=== PATIENT | female | born 1935 | race Caucasian/White ===

== ENCOUNTER 2022-04-08 12:22 | Outpatient (REF) | payer MEDICARE, SELFPAY ==
[2022-04-08 13:44] LABS: MANUAL DIFF FLAG NO
[2022-04-08 13:48] LABS: Basophils Absolute Auto 0.1 X10*3/uL (0.0-0.2); Basophils Percent Auto 1.2 % (0-2); Eosinophils Absolute Auto 0.6 X10*3/uL (0.0-0.4); Eosinophils Percent Auto 8.3 % (0-4); Hematocrit 39.9 % (37.0-47.0); Hemoglobin 12.8 g/dl (12.0-16.0); Imm Gran Abs Auto 0.02 X10*3/uL (0.00-0.03); Imm Gran Pct Auto 0.3 % (0.0-0.4); Lymphocytes Absolute Auto 0.9 X10*3/uL (1.2-4.9); Lymphocytes Percent Auto 11.7 % (20-40); Mean Corpuscular HGB Conc 32.1 g/dl (31.0-35.0); Mean Corpuscular Hemoglobin 30.5 pg (27.0-33.0); Mean Corpuscular Volume 95.2 fL (80.0-98.0); Mean Platelet Volume 10.6 fL (9.4-12.3); Monocytes Absolute Auto 1.1 X10*3/uL (0.1-1.2); Monocytes Percent Auto 14.2 % (2-11); Neutrophils Percent Auto 64.3 % (45-73); Platelet Count 295 X10*3/uL (160-400); Red Blood Count 4.19 X10*6/uL (4.20-5.50); Red Cell Distribution Width 12.7 % (11.0-16.0); White Blood Count 7.7 X10*3/uL (4.8-10.8)
[2022-04-08 14:11] LABS: Alanine Aminotransferase 9 U/L (0-31); Aspartate Amino Transferase 16 U/L (5-31); C Reactive Protein 3.09 mg/dL (< or = 0.50); Estimated Glomerular Filt Rate > 60
[2022-04-08 14:39] LABS: Erythrocyte Sedimentation Rate 75 MM/HR (0-20)
== END 2022-04-08 12:23 | disposition home or self-care (01) ==
LOC: HO.10HDL 12:22
PROVIDERS: Visit Provider Internal Medicine Rheumatology
DX: M47.817 Spondylosis without myelopathy or radiculopathy, lumbosacral region (principal); M05.10 Rheumatoid lung disease with rheumatoid arthritis of unspecified site; M05.9 Rheumatoid arthritis with rheumatoid factor, unspecified; Z79.899 Other long term (current) drug therapy
CPT/HCPCS: 36415; 82565; 84450; 84460; 85025; 85652; 86140; 99212

== ENCOUNTER → 2022-07-13 10:45 | Outpatient (BNVA) | payer MEDICARE, SELFPAY | PROVIDERS: Visit Provider Internal Medicine Rheumatology | DX: M05.9 Rheumatoid arthritis with rheumatoid factor, unspecified (principal); M05.10 Rheumatoid lung disease with rheumatoid arthritis of unspecified site; M17.11 Unilateral primary osteoarthritis, right knee; M47.817 Spondylosis without myelopathy or radiculopathy, lumbosacral region; Z79.899 Other long term (current) drug therapy | CPT/HCPCS: 36415; 82565; 84450; 84460; 85025; 85652; 86140; 99212 ==

== ENCOUNTER → 2022-08-03 10:38 | Outpatient (BNVA) | payer MEDICARE, SELFPAY | PROVIDERS: Visit Provider Internal Medicine Rheumatology | DX: M17.11 Unilateral primary osteoarthritis, right knee (principal) | CPT/HCPCS: 20610 ==

== ENCOUNTER 2022-08-11 14:51 | Outpatient (REF) | payer MEDICARE, SELFPAY ==
[2022-08-11 17:25] LABS: Alanine Aminotransferase 15 U/L (0-31); Albumin Level 4.2 g/dL (3.5-5.0); Alkaline Phosphatase 103 U/L (39-117); Anion Gap 17 (12-20); Aspartate Amino Transferase 19 U/L (5-31); Bilirubin Total 0.8 mg/dL (0.0-1.0); Blood Urea Nitrogen 26 mg/dL (9-16); Calcium 9.8 mg/dL (8.4-10.2); Carbon Dioxide 29 mmol/L (22-29); Chloride 105 mmol/L (96-108); Cholesterol 201 mg/dL; Estimated Glomerular Filt Rate 49; Glucose Random 101 mg/dL (60-115); HDL Cholesterol 51 mg/dL; LDL Cholesterol Calculated 117 mg/dl; Potassium 3.9 mmol/L (3.3-5.1); Sodium 147 mmol/L (135-145); Total Protein 6.6 g/dL (6.5-8.0); Triglycerides 167 mg/dL
[2022-08-11 17:40] LABS: TSH reflex Free T4 0.44 uIU/mL (0.32-4.0)
== END 2022-08-11 14:52 | disposition home or self-care (01) ==
LOC: HO.HMGCLDS 14:51
PROVIDERS: PCP Internal Medicine; Visit Provider Internal Medicine
DX: I10 Essential (primary) hypertension (principal); J44.9 Chronic obstructive pulmonary disease, unspecified; Z78.0 Asymptomatic menopausal state
CPT/HCPCS: 36415; 80053; 80061; 84443

== ENCOUNTER → 2022-08-17 11:09 | Outpatient (BNVA) | payer MEDICARE, SELFPAY | PROVIDERS: PCP Internal Medicine; Visit Provider Internal Medicine Rheumatology | DX: M17.11 Unilateral primary osteoarthritis, right knee (principal); M06.9 Rheumatoid arthritis, unspecified | CPT/HCPCS: 20610 ==

== ENCOUNTER → 2022-08-24 10:34 | Outpatient (BNVA) | payer MEDICARE, SELFPAY | PROVIDERS: PCP Internal Medicine; Visit Provider Internal Medicine Rheumatology | DX: M17.11 Unilateral primary osteoarthritis, right knee (principal) | CPT/HCPCS: 20610; 81001; 87086 ==

== ENCOUNTER 2022-09-02 11:48 | Outpatient (REF) | payer MEDICARE, SELFPAY ==
[2022-09-02 13:59] LABS: MANUAL DIFF FLAG NO
[2022-09-02 14:26] LABS: Basophils Absolute Auto 0.1 X10*3/uL (0.0-0.2); Basophils Percent Auto 1.2 % (0-2); Eosinophils Absolute Auto 0.4 X10*3/uL (0.0-0.4); Eosinophils Percent Auto 4.6 % (0-4); Hematocrit 42.3 % (37.0-47.0); Hemoglobin 13.3 g/dl (12.0-16.0); Imm Gran Abs Auto 0.04 X10*3/uL (0.00-0.03); Imm Gran Pct Auto 0.5 % (0.0-0.4); Lymphocytes Absolute Auto 1.4 X10*3/uL (1.2-4.9); Lymphocytes Percent Auto 17.7 % (20-40); Mean Corpuscular HGB Conc 31.4 g/dl (31.0-35.0); Mean Corpuscular Hemoglobin 30.6 pg (27.0-33.0); Mean Corpuscular Volume 97.5 fL (80.0-98.0); Mean Platelet Volume 11.3 fL (9.4-12.3); Monocytes Absolute Auto 0.9 X10*3/uL (0.1-1.2); Monocytes Percent Auto 11.4 % (2-11); Neutrophils Absolute Auto 5.2 x10*3/uL (2.0-8.3); Neutrophils Percent Auto 64.6 % (45-73); Platelet Count 266 X10*3/uL (160-400); Red Blood Count 4.34 X10*6/uL (4.20-5.50); White Blood Count 8.1 X10*3/uL (4.8-10.8)
[2022-09-02 15:06] LABS: Erythrocyte Sedimentation Rate 23 MM/HR (0-20)
[2022-09-02 15:09] LABS: Alanine Aminotransferase 11 U/L (0-31); Aspartate Amino Transferase 20 U/L (5-31); C Reactive Protein 0.16 mg/dL (< or = 0.50); Estimated Glomerular Filt Rate 57; Sodium 145 mmol/L (135-145)
[2022-09-02 15:13] LABS: Vitamin D 25-OH Total 76.8 ng/mL (>30)
== END 2022-09-02 11:49 | disposition home or self-care (01) ==
LOC: HO.HMGCLDS 11:48
PROVIDERS: PCP Internal Medicine; Visit Provider Internal Medicine Rheumatology
DX: E87.0 Hyperosmolality and hypernatremia (principal); E55.9 Vitamin D deficiency, unspecified; I10 Essential (primary) hypertension; J44.9 Chronic obstructive pulmonary disease, unspecified; N39.0 Urinary tract infection, site not specified; M05.9 Rheumatoid arthritis with rheumatoid factor, unspecified; Z78.0 Asymptomatic menopausal state; Z79.899 Other long term (current) drug therapy
CPT/HCPCS: 36415; 82306; 82565; 84295; 84450; 84460; 85025; 85652; 86140; 87086

== ENCOUNTER 2022-10-10 12:46 | Emergency (ER) | payer MEDICARE, SELFPAY ==
--- NOTE | ~2022-10-10 | CT_ITS ---
EXAMINATION: CT ABDOMEN AND PELVIS WITH CONTRAST CLINICAL INFORMATION: Lower abdominal pain, back pain and constipation. COMPARISON: None available. TECHNIQUE: Multidetector volumetric images were obtained from the superior aspect of the liver through the pubic symphysis following administration 85 mL of Omnipaque 350 intravenous contrast. Sagittal and coronal reformatted images were obtained on the technologist's workstation. Oral contrast: No This CT examination was performed using dose optimization techniques as appropriate, variously including the following: *Automated exposure control *Adjustment of mA and/or kV according to patient size (this includes techniques or standardized protocols for targeted exams where dose is matched to indication/reason for exam; i.e. extremities or head) *Use of iterative reconstruction technique DLP: 1038 mGy-cm FINDINGS: The exam is limited secondary to patient breathing artifact throughout the exam. LUNG BASES: The lung bases are clear. Heart size is normal. LIVER, GALLBLADDER, AND BILIARY TREE: The liver is enlarged in size, normal shape, and attenuation with mild left hepatic biliary ductal dilatation and left hepatic 1.6 cm cyst.. The gallbladder is not visualized PANCREAS: Limited SPLEEN: Unremarkable. ADRENAL GLANDS: Unremarkable. KIDNEYS AND URETERS: The kidneys are normal in size, shape, and attenuation. No hydronephrosis, hydroureter, or calculi seen. No perinephric stranding. BLADDER: Unremarkable. GASTROINTESTINAL TRACT: There is diffuse colonic diverticulosis, gas and stool without any evidence of diverticulitis. The small bowel loops are normal caliber. Appendix is not seen. The stomach is nondistended. ABDOMINAL WALL: There is a left inguinal hernia containing a loop of small bowel. No proximal bowel obstruction seen. LYMPH NODES: Normal. VASCULAR: There is mild atherosclerotic changes of abdominal aorta without aneurysmal dilatation. PELVIC VISCERA: No free air or free fluid seen. OSSEOUS STRUCTURES: There are degenerative disc changes with spondylosis throughout lumbar spine. No acute fracture or dislocation seen. CT/CT abdomen pelvis w IV con IMPRESSION: 1. Diffuse colonic diverticulosis without diverticulitis. 2. Left inguinal hernia containing a loop of small bowel. No proximal bowel obstruction seen. 3. Left hepatic cysts with mild left intrahepatic ductal dilatation. Fleischner guidelines were followed.
[2022-10-10 12:48] VITALS: BP 151/103; PULSE 100; RESP 18; TEMP 36.8; O2SAT 92; BMI 23.1
--- NOTE | 2022-10-10 12:50 | ED.ABDPAIN ---
HPI - Abdominal Pain General Chief Complaint: General Medical <JOANIE Hernandez - Last Filed: 10/10/22 12:52> Stated Complaint: constipation <JOANIE Hernandez - Last Filed: 10/10/22 12:52> Time Seen by Provider: 10/10/22 12:52 <JOANIE Hernandez - Last Filed: 10/10/22 12:52> Source: patient and family <Jacqueline Donohue NP - Last Filed: 10/10/22 16:38> Mode of arrival: wheelchair <Jacqueline Donohue NP - Last Filed: 10/10/22 16:38> Limitations: no limitations <Jacqueline Donohue NP - Last Filed: 10/10/22 16:38> History of Present Illness HPI narrative: 87 yo female with past medical history of COPD, HTN, OA here with complaints of about 1 week of constipation, rectal pain/pressure, despite miralax and laxative with lower back pain but no abdominal pain, vomiting or fever. <Jacqueline Donohue NP - Last Filed: 10/10/22 16:38> Related Data Home Medications: Home Medications Medication Instructions Recorded Confirmed calcium carbonate 600 mg-vitamin 1 tab PO DAILY 04/08/22 09/03/22 D3 10 mcg (400 unit) tablet (Calcium 600 + D(3)) celecoxib 200 mg capsule (Celebrex) 200 mg PO BID 04/08/22 09/03/22 multivitamin 1 tab PO DAILY 04/08/22 09/03/22 albuterol sulfate 90 mcg/actuation 2 puff inhalation Q6H PRN wheezing 07/13/22 09/03/22 aerosol inhaler cetirizine 10 mg tablet 10 mg PO DAILY 07/13/22 09/03/22 diltiazem HCl 30 mg tablet 30 mg PO BID 07/13/22 09/03/22 fluticasone fur. 100 mcg-umeclid 1 ea inhalation DAILY 07/13/22 09/03/22 62.5 mcg-vilant 25 mcg inhalat.powder (Trelegy Ellipta) triamterene 37.5 1 tab PO DAILY 07/13/22 09/03/22 mg-hydrochlorothiazide 25 mg tablet acetaminophen 325 mg capsule 325 mg PO QID PRN 08/03/22 09/03/22 (Tylenol) Previous Rx's Medication Instructions Recorded nitrofurantoin 100 mg PO Q12H 7 days #14 caps 09/03/22 monohydrate/macrocrystals 100 mg capsule (Macrobid) leflunomide 10 mg tablet (Arava) 10 mg PO DAILY #30 tabs 10/08/22 cefuroxime axetil 250 mg tablet 250 mg PO BID #14 tabs 10/10/22 docusate sodium 100 mg capsule 100 mg PO BID #60 caps 10/10/22 (Colace) lactulose 10 gram/15 mL oral 15 ml PO DAILY PRN laxative effect 10/10/22 solution #90 mL polyethylene glycol 3350 17 17 g PO BID #119 grams 10/10/22 gram/dose oral powder (Miralax) <JOANIE Hernandez Last Filed: 10/10/22 12:52> Allergies/Adverse Reactions: Allergies Allergy/AdvReac Type Severity Reaction Status Date / Time Seasonal Allergies Allergy Intermediate congestion Verified 09/03/22 10:11 acetaminophen [From Percocet] Allergy Unknown unknown Verified 09/03/22 10:11 oxycodone [From Percocet] Allergy Unknown unknown Verified 09/03/22 10:11 <JOANIE Hernandez - Last Filed: 10/10/22 12:52> Review of Systems Review of Systems Yes all other systems are reviewed and are negative <LALA Parrish Last Filed: 10/10/22 16:38> Constitutional: Reports no additional constitutional complaints, Denies body ache(s), Denies chills, Denies fever(s), Denies headache(s) and Denies weakness <Jacqueline Donohue NP - Last Filed: 10/10/22 16:38> Eyes: Reports no additional eye complaints and Denies change in vision <Jacqueline Donohue NP - Last Filed: 10/10/22 16:38> Reports system reviewed and no additional complaints, except as documented, Denies dizziness, Denies headache(s), Denies nasal congestion, Denies nasal discharge and Denies neck pain <Jacqueline Donohue NP - Last Filed: 10/10/22 16:38> Cardiovascular: Reports no additional cardiovascular complaints, Denies chest pain, Denies leg edema and Denies dyspnea <Jacqueline Donohue NP - Last Filed: 10/10/22 16:38> Respiratory: Reports no additional respiratory complaints, Denies cough and Denies dyspnea <Jacqueline Donohue NP - Last Filed: 10/10/22 16:38> Gastrointestinal: Reports no additional gastrointestinal complaints, Denies abdominal pain, Reports constipation, Denies diarrhea, Denies nausea and Denies vomiting <Jacqueline Donohue NP - Last Filed: 10/10/22 16:38> Genitourinary: Reports no additional female genitourinary complaints and Denies urinary incontinence <Jacqueline Donohue NP - Last Filed: 10/10/22 16:38> Musculoskeletal: Reports no additional musculoskeletal complaints, Reports back pain, Denies arthralgias, Denies joint swelling, Denies neck pain, Denies numbness and Denies tingling <Jacqueline Donohue NP - Last Filed: 10/10/22 16:38> Skin/Breast: Reports system reviewed and no additional complaints, except as docu and Denies rash <Jacqueline Donohue NP - Last Filed: 10/10/22 16:38> Reports system reviewed and no additional complaints, except as documented, Denies dizziness, Denies headache(s), Denies numbness, Denies tingling and Denies weakness <Jacqueline Donohue NP - Last Filed: 10/10/22 16:38> [facility] Past Medical History Attestation statement: The following information was validated with the patient. <Jacqueline Donohue NP - Last Filed: 10/10/22 16:38> Source: old records reviewed and nursing notes reviewed <Jacqueline Donohue NP - Last Filed: 10/10/22 16:38> Medical History: Medical History FHx: cholecystectomy <JOANIE Hernandez - Last Filed: 10/10/22 12:52> Family History Family History: Family History Mother Acute arthritis Father No problems noted. Mother Acute arthritis <JOANIE Hernandez - Last Filed: 10/10/22 12:52> Social History Social History: Social History Household Members Other:: [facility] Housing: Other Housing Other:: [facility] Alcohol intake: never Patient Tobacco Use Status: Former Tobacco user (over 30 years ) Smoked in Last 30 Days: No e-Cigarette/Vaping Use: Never Used Use of substances other than those prescribed or required for medical reasons: No Advance Directives: Yes Advance Directives Information Provided: Yes Advance Directives on File: No service: No Current occupational status: retired Current occupation: Former PT Cognitive needs: No Hearing needs: No Vision needs: Yes <JOANIE Hernandez - Last Filed: 10/10/22 12:52> Physical Exam ED Vital Signs: Vital Signs - 24 hr 10/10/22 12:48 10/10/22 14:58 Temperature 98.2 F Pulse Rate 100 94 Respiratory Rate 18 14 Blood Pressure 151/103 H 135/70 Pulse Oximetry 92 87 L Oxygen Delivery Method Room Air Room Air BMI result Body Mass Index 23.1 <JOANIE Hernandez - Last Filed: 10/10/22 12:52> Vital Signs - 24 hr 10/10/22 12:48 10/10/22 14:58 Temperature 98.2 F Pulse Rate 100 94 Respiratory Rate 18 14 Blood Pressure 151/103 H 135/70 Pulse Oximetry 92 87 L Oxygen Delivery Method Room Air Room Air BMI result Body Mass Index 23.1 <Jacqueline Donohue NP - Last Filed: 10/10/22 16:38> Const General: cooperative, healthy appearing, comfortable and no acute distress <Jacqueline Donohue NP - Last Filed: 10/10/22 16:38> Orientation/consciousness: patient oriented x3 <Jacqueline Donohue NP - Last Filed: 10/10/22 16:38> Limitations: no limitations <Jacqueline Donohue NP - Last Filed: 10/10/22 16:38> HENIN Head: Yes normal to inspection <Jacqueline Donohue [employer]MENT INST[employer] - Last Filed: 10/10/22 16:38> Ears: hearing grossly normal bilaterally <Jacqueline Donohue [employer]MENT INST[employer]ER - Last Filed: 10/10/22 16:38> Eyes General: appearance normal, both eyes and all related structures <Jacqueline Donohue [employer]MENT INST[employer]ER - Last Filed: 10/10/22 16:38> Pupils: Equal, round and reactive pupils present <Jacqueline Donohue [employer] E[employer]MENT INST[employer]ER - Last Filed: 10/10/22 16:38> Neck Neck: Yes normal visual inspection, Yes full ROM and Yes no lymphadenopathy <Jacqueline Donohue [employer]MENT INST[employer]ER - Last Filed: 10/10/22 16:38> Chest Chest palpation & inspection: normal inspection of the chest <Jacqueline Donohue [employer]IPMENT INST[employer]ER - Last Filed: 10/10/22 16:38> Resp Effort & Inspection: normal respiratory effort <Jacqueline Donohue [employer] E[employer]MENT INST[employer]ER - Last Filed: 10/10/22 16:38> Auscultation: clear to auscultation bilaterally <Jacqueline Donohue [employer] EQUIPMENT INST[employer]ER - Last Filed: 10/10/22 16:38> Cardio Rate: regular rate <Jacqueline Donohue [employer] E[employer]IPMENT INST[employer]ER - Last Filed: 10/10/22 16:38> Rhythm: regular rhythm <Jacqueline Donohue [employer] EQUIPMENT INSTALLER - Last Filed: 10/10/22 16:38> Peripheral pulses: Peripheral pulses 2+ throughout <Jacqueline Donohue [employer] EQUIPMENT INST[employer]ER - Last Filed: 10/10/22 16:38> GI Inspection: Yes normal to inspection <Jacqueline Donohue [employer] EQUIPMENT INSTALLER - Last Filed: 10/10/22 16:38> Palpation (GI): Soft to palpation and nontender <Jacqueline Donohue [employer] EQUIPMENT INSTALLER - Last Filed: 10/10/22 16:38> Auscultation: normal bowel sounds <Jacqueline Donohue [employer] E[employer]IPMENT INSTALLER - Last Filed: 10/10/22 16:38> Rectal Exam - Female: visual inspection normal, normal sphincter tone and No fecal impaction <Jacqueline Donohue [employer] E[employer]IPMENT INST[employer]ER - Last Filed: 10/10/22 16:38> General: Yes no CVA tenderness <Jacquelineheidi Donohue, [employer]IPMENT INSTALLER - Last Filed: 10/10/22 16:38> Back/Spine/Pelvis Back: no CVA tenderness <Jacqueline Jayde, [employer]IPMENT INST[employer]ER - Last Filed: 10/10/22 16:38> Thoracic/Lumbar Spine: thoracic and lumbar spine normal to inspection <Jacquelineheidi Donohue, [employer]IPMENT INSTALLER - Last Filed: 10/10/22 16:38> Skin General skin exam: no rashes or lesions noted <Jacqueline Jayde, [employer] E[employer]IPMENT INSTALLER - Last Filed: 10/10/22 16:38> Neuro General: patient oriented x3 and moves all extremities <Jacqueline Donohue, [employer]IPMENT INSTALLER - Last Filed: 10/10/22 16:38> Cranial nerves: Yes CN's II-XII intact bilaterally, Yes Equal, round and reactive pupils present, Yes Bilaterally intact EOM present, Yes Nystagmus not present, Yes Normal facial strength present and Yes Midline tongue present <Jacquelineheidi Donohue, [employer]IPMENT INSTALLER - Last Filed: 10/10/22 16:38> Cognition (Neuro): normal cognition <Jacquelineheidi Donohue, [employer]IPMENT INSTALLER - Last Filed: 10/10/22 16:38> Motor exam (neuro): 5/5 motor strength present throughout <Jacquelineheidi Donohue, [employer]IPMENT INSTALLER - Last Filed: 10/10/22 16:38> Sensory Exam: Normal double simultaneous stimulation for sensation <Jacqueline Donohue, [employer]IPMENT INSTALLER - Last Filed: 10/10/22 16:38> Extrem General: Yes normal to inspection, Yes no pedal edema and Yes no calf tenderness <Jacqueline Donohue, [employer]IPMENT INSTALLER - Last Filed: 10/10/22 16:38> Course Course Course Narrative: This is an RME: Additional HPI, ROS, PE not included below will be deferred to primary provider. 87 year old female hx of COPD, HTN. seropositive RA presenting to ED w/ a traumatic lower back pain, constipation no BM for about 4-5 days, and diffuse abdominal pain. Here with daughter who states patient has had her galbladder removed. PE diffuse discomfort to abd Plan- labs, ua, ct <JOANIE Hernandez - Last Filed: 10/10/22 12:52> Reevaluation(s) Reevaluation #1: 1630-CT of the abdomen and pelvis shows no obstruction. Labs are unremarkable. UA shows a mild urinary tract infection. Patient has no fever or leukocytosis. She will be discharged home with a course of antibiotics. She does have some moderate constipation seen throughout the GI system on CT. I will start her on a bowel regimen give her lactulose p.r.n.. Nursing did inform me that patient had oxygen saturation of 87%. Patient does have history of COPD and uses oxygen at home intermittently. She has no shortness of breath. She is well-appearing. Her lungs are clear. I will discharge her home in care of her daughter. Reviewed worrisome signs and symptoms when to return to the emergency room. Comfortable plan for discharge home. <Jacqueline Donohue NP - Last Filed: 10/10/22 16:38> Medical Decision Making Medical Decision Making [facility] Narrative: 87 yo female here with one week of constipation with rectal pain/pressure, lower back pain. On exam abdomen, soft and nontender. +BS throughout. Elvia rectal exam with no fecal impaction. From triage labs, UA, CT were ordered <Jacqueline Donohue NP - Last Filed: 10/10/22 16:38> Differential Diagnosis Differential Diagnoses: The differential diagnosis associated with the presentation includes <Jacqueline Donohue NP - Last Filed: 10/10/22 16:38> Less likely SBO Consider constipation, fecal impaction, ischemic bowel, diverticulitis, malignancy <Jacqueline Donohue NP - Last Filed: 10/10/22 16:38> Lab Data [facility] Lab Attestation statement: I reviewed the patient's lab results. <Jacqueline Donohue NP - Last Filed: 10/10/22 16:38> Result Diagrams: 10/10/22 13:39 10/10/22 13:40 <JOANIE Hernandez - Last Filed: 10/10/22 12:52> Labs: Lab Results 10/10/22 10/10/22 10/10/22 Range/Units 13:39 13:40 15:48 WBC 7.7 (4.8-10.8) X10*3/uL RBC 4.17 L (4.20-5.50) X10*6/uL Hgb 13.3 (12.0-16.0) g/dl Hct 39.7 (37.0-47.0) % MCV 95.2 (80.0-98.0) fL MCH 31.9 (27.0-33.0) pg MCHC 33.5 (31.0-35.0) g/dl RDW 12.7 (11.0-16.0) % Plt Count 241 (160-400) X10*3/uL MPV 10.8 (9.4-12.3) fL Immature Gran % (Auto) 0.3 (0.0-0.4) % Neut % (Auto) 60.8 (45-73) % Lymph % (Auto) 19.7 L (20-40) % [place] % (Auto) 13.4 H (2-11) % Eos % (Auto) 4.9 H (0-4) % Baso % (Auto) 0.9 (0-2) % Lymph # (Auto) 1.5 (1.2-4.9) X10*3/uL [place] # (Auto) 1.0 (0.1-1.2) X10*3/uL Eos # (Auto) 0.4 (0.0-0.4) X10*3/uL Baso # (Auto) 0.1 (0.0-0.2) X10*3/uL Abs Immat Gran (auto) 0.02 (0.00-0.03) X10*3/uL Absolute Neuts (auto) 4.7 (2.0-8.3) x10*3/uL Absolute Nucleated RBC 0.000 (0.0-0.012) X10*3/uL Nucleated RBC % (auto) 0.0 (0.0-0.2) /100WBC Sodium 143 (135-145) mmol/L Potassium 4.0 (3.3-5.1) mmol/L Chloride 103 (96-108) mmol/L Carbon Dioxide 34 H (22-29) mmol/L Anion Gap 10 L (12-20) BUN 18 H (9-16) mg/dL Creatinine 0.92 (0.5-1.4) mg/dL Estim Creat Clear Calc 37.1 Estimated GFR 58 Random Glucose 126 H (60-115) mg/dL Calcium 9.4 (8.4-10.2) mg/dL Magnesium 2.0 (1.6-2.6) mg/dL Total Bilirubin 0.6 (0.0-1.0) mg/dL AST 20 (5-31) U/L ALT 10 (0-31) U/L Alkaline Phosphatase 82 (39-117) U/L Total Protein 6.0 L (6.5-8.0) g/dL Albumin 3.8 (3.5-5.0) g/dL Lipase 16 (8-78) U/L Urine Color Yellow Urine Appearance Clear Urine pH 8.0 (5.0-9.0) Ur Specific [place] >= 1.030 H (1.005-1.025) Urine Protein Negative (Neg-Trace) mg/dL Urine Glucose (UA) Negative (Negative) mg/dL Urine Ketones Negative (Negative) mg/dL Urine Blood Negative (Negative) Urine Nitrite Negative (Negative) Ur Leukocyte Esterase Moderate (2+) H (Negative) Urine RBC 0-2 (0-2) /HPF Urine WBC 6-10 H (0-5) /HPF Ur Squamous Epith Cells 3-5 (0-2) /HPF Urine Bacteria None Seen (None Seen) Hyaline Casts 0-2 (0-2) /LPF <JOANIE Hernandez - Last Filed: 10/10/22 12:52> Lab Results 10/10/22 10/10/22 10/10/22 Range/Units 13:39 13:40 15:48 WBC 7.7 (4.8-10.8) X10*3/uL RBC 4.17 L (4.20-5.50) X10*6/uL Hgb 13.3 (12.0-16.0) g/dl Hct 39.7 (37.0-47.0) % MCV 95.2 (80.0-98.0) fL MCH 31.9 (27.0-33.0) pg MCHC 33.5 (31.0-35.0) g/dl RDW 12.7 (11.0-16.0) % Plt Count 241 (160-400) X10*3/uL MPV 10.8 (9.4-12.3) fL Immature Gran % (Auto) 0.3 (0.0-0.4) % Neut % (Auto) 60.8 (45-73) % Lymph % (Auto) 19.7 L (20-40) % [place] % (Auto) 13.4 H (2-11) % Eos % (Auto) 4.9 H (0-4) % Baso % (Auto) 0.9 (0-2) % Lymph # (Auto) 1.5 (1.2-4.9) X10*3/uL [place] # (Auto) 1.0 (0.1-1.2) X10*3/uL Eos # (Auto) 0.4 (0.0-0.4) X10*3/uL Baso # (Auto) 0.1 (0.0-0.2) X10*3/uL Abs Immat Gran (auto) 0.02 (0.00-0.03) X10*3/uL Absolute Neuts (auto) 4.7 (2.0-8.3) x10*3/uL Absolute Nucleated RBC 0.000 (0.0-0.012) X10*3/uL Nucleated RBC % (auto) 0.0 (0.0-0.2) /100WBC Sodium 143 (135-145) mmol/L Potassium 4.0 (3.3-5.1) mmol/L Chloride 103 (96-108) mmol/L Carbon Dioxide 34 H (22-29) mmol/L Anion Gap 10 L (12-20) BUN 18 H (9-16) mg/dL Creatinine 0.92 (0.5-1.4) mg/dL Estim Creat Clear Calc 37.1 Estimated GFR 58 Random Glucose 126 H (60-115) mg/dL Calcium 9.4 (8.4-10.2) mg/dL Magnesium 2.0 (1.6-2.6) mg/dL Total Bilirubin 0.6 (0.0-1.0) mg/dL AST 20 (5-31) U/L ALT 10 (0-31) U/L Alkaline Phosphatase 82 (39-117) U/L Total Protein 6.0 L (6.5-8.0) g/dL Albumin 3.8 (3.5-5.0) g/dL Lipase 16 (8-78) U/L Urine Color Yellow Urine Appearance Clear Urine pH 8.0 (5.0-9.0) Ur Specific [place] >= 1.030 H (1.005-1.025) Urine Protein Negative (Neg-Trace) mg/dL Urine Glucose (UA) Negative (Negative) mg/dL Urine Ketones Negative (Negative) mg/dL Urine Blood Negative (Negative) Urine Nitrite Negative (Negative) Ur Leukocyte Esterase Moderate (2+) H (Negative) Urine RBC 0-2 (0-2) /HPF Urine WBC 6-10 H (0-5) /HPF Ur Squamous Epith Cells 3-5 (0-2) /HPF Urine Bacteria None Seen (None Seen) Hyaline Casts 0-2 (0-2) /LPF <Jacqueline Donohue NP - Last Filed: 10/10/22 16:38> Independent Interpretation I performed an independent interpretation of an: CT Scan <Jacqueline Donohue NP - Last Filed: 10/10/22 16:38> Interpretation: I independetely reviewed the CT scan and agree with radiologist's report-in addition there is stool seen-moderate amount <Jacqueline Donohue NP - Last Filed: 10/10/22 16:38> Radiology Impression Discussion of test interpretation with radiology: I have reviewed the radiologist's reading. <Jacqueline Donohue NP - Last Filed: 10/10/22 16:38> Radiologist Impression: FINDINGS: The exam is limited secondary to patient breathing artifact throughout the exam. LUNG BASES: The lung bases are clear. Heart size is normal.? LIVER, GALLBLADDER, AND BILIARY TREE: The liver is enlarged in size, normal shape, and attenuation with mild left hepatic biliary ductal dilatation and left hepatic 1.6 cm cyst.. The gallbladder is not visualized? PANCREAS: Limited? SPLEEN: Unremarkable.? ADRENAL GLANDS: Unremarkable.? KIDNEYS AND URETERS: The kidneys are normal in size, shape, and attenuation. No hydronephrosis, hydroureter, or calculi seen. No perinephric stranding. ? BLADDER: Unremarkable.? GASTROINTESTINAL TRACT: There is diffuse colonic diverticulosis, gas and stool without any evidence of diverticulitis. The small bowel loops are normal caliber. Appendix is not seen. The stomach is nondistended. ABDOMINAL WALL: There is a left inguinal hernia containing a loop of small bowel. No proximal bowel obstruction seen. LYMPH NODES: Normal. VASCULAR: There is mild atherosclerotic changes of abdominal aorta without aneurysmal dilatation. PELVIC VISCERA: No free air or free fluid seen.? OSSEOUS STRUCTURES: There are degenerative disc changes with spondylosis throughout lumbar spine. No acute fracture or dislocation seen.? CT/CT abdomen pelvis w IV con IMPRESSION: 1.? Diffuse colonic diverticulosis without diverticulitis. 2.? Left inguinal hernia containing a loop of small bowel. No proximal bowel obstruction seen. 3.? Left hepatic cysts with mild left intrahepatic ductal dilatation. <Jacqueline Donohue NP - Last Filed: 10/10/22 16:38> Independent Historian +daughter <Jacqueline Donohue NP - Last Filed: 10/10/22 16:38> Medications Administered Discontinued Medications Generic Name Dose Route Start Last Admin Trade Name Freq PRN Reason Stop Dose Admin Acetaminophen 975 mg 10/10/22 16:18 10/10/22 16:23 Acetaminophen 325 Mg Tablet PO 10/10/22 16:19 975 mg ONCE ONE Administration Docusate Sodium 100 mg 10/10/22 12:50 10/10/22 13:19 Docusate Sodium 100 Mg Capsule PO 10/10/22 12:51 100 mg ONCE ONE Administration Iohexol 85 ml 10/10/22 14:31 10/10/22 14:31 Iohexol 350 Mg/Ml 100 Ml Infus..Btl IV 10/10/22 14:32 85 ml ONCE ONE Administration Senna 15 ml 10/10/22 12:50 10/10/22 13:19 Senna [place] Extract Oral Syrup 15 Ml Syrup PO 10/10/22 12:51 15 ml ONCE ONE Administration <JOANIE Hernandez - Last Filed: 10/10/22 12:52> Medications Administered Discontinued Medications Generic Name Dose Route Start Last Admin Trade Name Freq PRN Reason Stop Dose Admin Acetaminophen 975 mg 10/10/22 16:18 10/10/22 16:23 Acetaminophen 325 Mg Tablet PO 10/10/22 16:19 975 mg ONCE ONE Administration Docusate Sodium 100 mg 10/10/22 12:50 10/10/22 13:19 Docusate Sodium 100 Mg Capsule PO 10/10/22 12:51 100 mg ONCE ONE Administration Iohexol 85 ml 10/10/22 14:31 10/10/22 14:31 Iohexol 350 Mg/Ml 100 Ml Infus..Btl IV 10/10/22 14:32 85 ml ONCE ONE Administration Senna 15 ml 10/10/22 12:50 10/10/22 13:19 Senna [place] Extract Oral Syrup 15 Ml Syrup PO 10/10/22 12:51 15 ml ONCE ONE Administration <Jacqueline Donohue NP - Last Filed: 10/10/22 16:38> Discharge Plan Discharge Clinical Impression: UTI (urinary tract infection), Constipation <JOANIE Hernandez - Last Filed: 10/10/22 12:52> Patient Disposition: Home, Self-Care <JOANIE Hernandez - Last Filed: 10/10/22 12:52> Instructions: Constipation (DC), Urinary Tract Infection in Older Adults (ED) <JOANIE Hernandez - Last Filed: 10/10/22 12:52> Additional Instructions: Take the MiraLax twice daily Take the Colace twice daily Only take the lactulose if you need to move her bowels Take all the antibiotics as prescribed Increase fluids, rest Follow-up with primary care doctor <JOANIE Hernandez - Last Filed: 10/10/22 12:52> Prescriptions: New polyethylene glycol 3350 [Miralax] 17 gram/dose powder 17 g PO BID Qty: 119 0RF docusate sodium [Colace] 100 mg capsule 100 mg PO BID Qty: 60 0RF cefuroxime axetil 250 mg tablet 250 mg PO BID Qty: 14 0RF lactulose 10 gram/15 mL solution 15 ml PO DAILY PRN (Reason: laxative effect) Qty: 90 0RF No Action leflunomide [Arava] 10 mg tablet 10 mg PO DAILY Qty: 30 3RF nitrofurantoin monohyd/m-cryst [Macrobid] 100 mg capsule 100 mg PO Q12H 7 Days Qty: 14 0RF Rx Instructions: must administer with a meal/food celecoxib [Celebrex] 200 mg capsule 200 mg PO BID multivitamin Tablet 1 tab PO DAILY calcium carbonate-vitamin D3 [Calcium 600 + D(3)] 600 mg-10 mcg (400 unit) tablet 1 tab PO DAILY triamterene-hydrochlorothiazid 37.5-25 mg tablet 1 tab PO DAILY Trelegy Ellipta 100-62.5-25 mcg blister with device 1 ea inhalation DAILY albuterol sulfate 90 mcg/actuation HFA aerosol inhaler 2 puff inhalation Q6H PRN (Reason: wheezing) diltiazem HCl 30 mg tablet 30 mg PO BID cetirizine 10 mg tablet 10 mg PO DAILY acetaminophen [Tylenol] 325 mg capsule 325 mg PO QID PRN <JOANIE Hernandez - Last Filed: 10/10/22 12:52> Referrals: Lubna Carmichael MD [Primary Care Provider] - 10 days <JOANIE Hernandez - Last Filed: 10/10/22 12:52>
[2022-10-10] MEDS: Docusate Sodium 100 MG CAPSULE PO (13:19)
[2022-10-10 13:45] LABS: MANUAL DIFF FLAG NO
[2022-10-10 13:46] LABS: Basophils Absolute Auto 0.1 X10*3/uL (0.0-0.2); Basophils Percent Auto 0.9 % (0-2); Eosinophils Absolute Auto 0.4 X10*3/uL (0.0-0.4); Eosinophils Percent Auto 4.9 % (0-4); Hematocrit 39.7 % (37.0-47.0); Hemoglobin 13.3 g/dl (12.0-16.0); Imm Gran Abs Auto 0.02 X10*3/uL (0.00-0.03); Imm Gran Pct Auto 0.3 % (0.0-0.4); Lymphocytes Absolute Auto 1.5 X10*3/uL (1.2-4.9); Lymphocytes Percent Auto 19.7 % (20-40); Mean Corpuscular HGB Conc 33.5 g/dl (31.0-35.0); Mean Corpuscular Hemoglobin 31.9 pg (27.0-33.0); Mean Corpuscular Volume 95.2 fL (80.0-98.0); Mean Platelet Volume 10.8 fL (9.4-12.3); Monocytes Percent Auto 13.4 % (2-11); Neutrophils Absolute Auto 4.7 x10*3/uL (2.0-8.3); Neutrophils Percent Auto 60.8 % (45-73); Platelet Count 241 X10*3/uL (160-400); Red Blood Count 4.17 X10*6/uL (4.20-5.50); Red Cell Distribution Width 12.7 % (11.0-16.0); White Blood Count 7.7 X10*3/uL (4.8-10.8)
[2022-10-10 14:01] LABS: Alanine Aminotransferase 10 U/L (0-31); Albumin Level 3.8 g/dL (3.5-5.0); Alkaline Phosphatase 82 U/L (39-117); Anion Gap 10 (12-20); Aspartate Amino Transferase 20 U/L (5-31); Bilirubin Total 0.6 mg/dL (0.0-1.0); Blood Urea Nitrogen 18 mg/dL (9-16); Calcium 9.4 mg/dL (8.4-10.2); Carbon Dioxide 34 mmol/L (22-29); Chloride 103 mmol/L (96-108); Creatinine Clr Calc Pharmacy 37.1; Estimated Glomerular Filt Rate 58; Glucose Random 126 mg/dL (60-115); Lipase 16 U/L (8-78); Sodium 143 mmol/L (135-145)
[2022-10-10] MEDS: iohexoL 350 MG/ML 100 ML INFUS..BTL 85 ML IV (14:31)
[2022-10-10 14:58] VITALS: BP 135/70; PULSE 94; RESP 14; O2SAT 87
[2022-10-10 15:55] LABS: Appearance Urine Clear; Color Urine Yellow; Glucose Urine UA Negative (Negative); Leukocyte Esterase Urine Moderate (2+) (Negative); Nitrite Urine Negative (Negative); Specific Gravity - Urine >= 1.030 (1.005-1.025); UMIC TRIGGER UACC YES; Urine Blood Negative (Negative); Urine Ketones Negative (Negative); Urine Protein Negative (Neg-Trace)
[2022-10-10 15:59] LABS: Bacteria Urine None Seen (None Seen); Hyaline Casts Urine 0-2 /LPF (0-2); RBC Urine 0-2 /HPF (0-2); UACC Culture Trigger YES
[2022-10-10] MEDS: Acetaminophen 325 MG TABLET 975 MG PO (16:23)
== END 2022-10-10 16:57 | disposition home or self-care (01) ==
PROVIDERS: Physician Assistant; Emergency Provider Emergency Medicine; PCP Internal Medicine
DX: N39.0 Urinary tract infection, site not specified (principal); K59.00 Constipation, unspecified; I10 Essential (primary) hypertension; Z79.899 Other long term (current) drug therapy
CPT/HCPCS: 36415; 74177; 80053; 81001; 83690; 83735; 85025; 87086; 99284; Q9967

== ENCOUNTER 2022-10-13 10:16 | Emergency (ER) | payer MEDICARE, SELFPAY ==
--- NOTE | ~2022-10-13 | CT_ITS ---
EXAMINATION: CT ABDOMEN AND PELVIS WITHOUT CONTRAST CLINICAL INFORMATION: Right-sided low back pain with UTI constipation COMPARISON: CT abdomen pelvis 3 days ago on 10/10/2022 TECHNIQUE: Multidetector volumetric imaging was performed from the superior aspect of the liver through the pubic symphysis. Sagittal and coronal reformatted images were obtained on the technologist's workstation. This CT examination was performed using dose optimization techniques as appropriate, variously including the following: *Automated exposure control *Adjustment of mA and/or kV according to patient size (this includes techniques or standardized protocols for targeted exams where dose is matched to indication/reason for exam; i.e. extremities or head) *Use of iterative reconstruction technique DLP: 291 mGy-cm FINDINGS: LUNG BASES: Emphysematous changes are present at the lung bases with peripheral scarring LIVER, GALLBLADDER, AND BILIARY TREE: The liver is normal in size, shape, and attenuation. No focal hepatic lesion or biliary ductal dilatation is present. The gallbladder is unremarkable with no evidence of radiopaque gallstones, gallbladder wall thickening, or obvious pericholecystic inflammatory changes. PANCREAS: Unremarkable. SPLEEN: Unremarkable. ADRENAL GLANDS: A right adrenal fat density benign adenoma is present measuring 2.2 x 1.3 x 3.0 cm. The left adrenal gland is unremarkable. KIDNEYS AND URETERS: The kidneys are normal in size, shape, and attenuation. Bilateral parapelvic Bosniak class I renal cysts are present which need no additional imaging or follow-up. No hydronephrosis, hydroureter, or calculi seen. No perinephric stranding. BLADDER: Unremarkable. GASTROINTESTINAL TRACT: Extensive colonic diverticular changes are present without diverticulitis. The small and large bowel are otherwise unremarkable. The appendix is not seen but there is no evidence of appendicitis. ABDOMINAL WALL: Again seen is an indirect left inguinal hernia containing unobstructed small bowel. LYMPH NODES: Normal. VASCULAR: The aorta is tortuous at the diaphragmatic hiatus and in its infrarenal portion. No aneurysms. PELVIC VISCERA: Unremarkable. OSSEOUS STRUCTURES: Severe degenerative changes are present throughout the spine with scoliosis convex to left. No bony destructive changes are seen. Degenerative changes are present in both hips, right significantly greater than the left. CT/CT abdomen pelvis wo IV con IMPRESSION: 1. A cause for the patient's right-sided low back pain has not been found. 2. Incidental note made of emphysema, benign right adrenal adenoma, colonic diverticulosis without diverticulitis and severe degenerative changes in the spine and hips. Fleischner guidelines were followed.
--- NOTE | ~2022-10-13 | XR_ITS ---
EXAMINATION: XR CHEST CLINICAL INFORMATION: Wheezing. COMPARISON: None available. TECHNIQUE: Frontal view of the chest was obtained. FINDINGS: Mild coarsened interstitial markings are seen bilaterally. Mild asymmetric linear markings are seen in the right upper lobe laterally. There is generalized hyperinflation. The heart and mediastinal structures are unremarkable. XR/XR chest 1V IMPRESSION: Coarse interstitial markings are nonspecific, but suggest chronic interstitial changes/COPD. Correlate with patient history. No acute cardiopulmonary process.
[2022-10-13 10:20] VITALS: BP 160/93; PULSE 101; RESP 18; TEMP 37; O2SAT 93; BMI 20.5
[2022-10-13 10:37] VITALS: BP 171/91; PULSE 103; RESP 17; TEMP 36.6; O2SAT 93
--- NOTE | 2022-10-13 11:08 | ED_ITS ---
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 Also reports continued constipation and rectal discomfort. Denies known injury, trauma, fall, dysuria/hematuria, urinary incontinence/retention, abdominal pain, CP/SOB Onset (ago): day(s) Related Data Home Medications Medication Instructions Recorded Confirmed calcium carbonate 600 mg-vitamin 1 tab PO DAILY 04/08/22 09/03/22 D3 10 mcg (400 unit) tablet (Calcium 600 + D(3)) celecoxib 200 mg capsule (Celebrex) 200 mg PO BID 04/08/22 09/03/22 multivitamin 1 tab PO DAILY 04/08/22 09/03/22 albuterol sulfate 90 mcg/actuation 2 puff inhalation Q6H PRN wheezing 07/13/22 09/03/22 aerosol inhaler cetirizine 10 mg tablet 10 mg PO DAILY 07/13/22 09/03/22 diltiazem HCl 30 mg tablet 30 mg PO BID 07/13/22 09/03/22 fluticasone fur. 100 mcg-umeclid 1 ea inhalation DAILY 07/13/22 09/03/22 62.5 mcg-vilant 25 mcg inhalat.powder (Trelegy Ellipta) triamterene 37.5 1 tab PO DAILY 07/13/22 09/03/22 mg-hydrochlorothiazide 25 mg tablet acetaminophen 325 mg capsule 325 mg PO QID PRN 08/03/22 09/03/22 (Tylenol) Previous Rx's Medication Instructions Recorded nitrofurantoin 100 mg PO Q12H 7 days #14 caps 09/03/22 monohydrate/macrocrystals 100 mg capsule (Macrobid) leflunomide 10 mg tablet (Arava) 10 mg PO DAILY #30 tabs 10/08/22 cefuroxime axetil 250 mg tablet 250 mg PO BID #14 tabs 10/10/22 docusate sodium 100 mg capsule 100 mg PO BID #60 caps 10/10/22 (Colace) lactulose 10 gram/15 mL oral 15 ml PO DAILY PRN laxative effect 10/10/22 solution #90 mL polyethylene glycol 3350 17 17 g PO BID #119 grams 10/10/22 gram/dose oral powder (Miralax) acetaminophen 500 mg tablet 500 mg PO Q6H PRN fever or pain 10/13/22 (Tylenol Extra Strength) #14 tabs lidocaine 5 % topical patch 1 patch topical DAILY PRN pain #30 10/13/22 (Lidoderm) ea Allergies Allergy/AdvReac Type Severity Reaction Status Date / Time Seasonal Allergies Allergy Intermediate congestion Verified 09/03/22 10:11 acetaminophen [From Percocet] Allergy Unknown unknown Verified 09/03/22 10:11 oxycodone [From Percocet] Allergy Unknown unknown Verified 09/03/22 10:11 Review of Systems Review of Systems: Constitutional: No Fever, No Chills, No Fatigue, No Malaise ENT/Mouth: No Hearing loss, No Ear Pain, No sore throat, No Rhinorrhea, No Swallowing Difficulty Eyes: No Eye Pain, No Swelling, No Redness, No Vision Changes Cardiovascular: No Chest Pain, No SOB, No Palpitations Respiratory: No Cough, No Sputum, No Dyspnea Gastrointestinal: No Nausea, No Vomiting, No Diarrhea, + Constipation, No Abdominal pain Genitourinary: No Dysuria, No Urinary Frequency, No Hematuria, No Urinary Incontinence/retention, No Urgency, No Flank Pain Musculoskeletal: +joint pain, No Myalgias, No Joint Swelling Skin: No Skin Lesions, No rash Neuro: No Weakness, No Numbness, No Paresthesias, No Dizziness, No Headache Yes all other systems are reviewed and are negative Constitutional: Constitutional: Reports as per [facility] Past Medical History Attestation statement: The following information was validated with the patient. Medical History FHx: cholecystectomy Family History Family History Mother Acute arthritis Father No problems noted. Mother Acute arthritis Social History Social History Household Members Other:: Resident [facility] Housing: Other Housing Other:: [facility] Alcohol intake: never Patient Tobacco Use Status: Former Tobacco user (over 30 years ) Smoked in Last 30 Days: No e-Cigarette/Vaping Use: Never Used Use of substances other than those prescribed or required for medical reasons: No Advance Directives: No service: No Current occupational status: retired Current occupation: Former PT Cognitive needs: No Hearing needs: No Vision needs: Yes Physical Exam ED Vital Signs: Vital Signs - 24 hr 10/13/22 10:20 10/13/22 10:37 10/13/22 11:35 Temperature 98.6 F 97.8 F Pulse Rate 101 H 103 H 86 Respiratory Rate 18 17 15 Blood Pressure 160/93 H 171/91 H Pulse Oximetry 93 93 Oxygen Delivery Method Room Air Room Air BMI result Body Mass Index 20.5 Const General: cooperative, healthy appearing and no acute distress Orientation/consciousness: patient oriented x3 Limitations: no limitations HENMT Head: Yes normal to inspection and Yes atraumatic Ears: hearing grossly normal bilaterally General nose exam: Normal external nose present Face and sinus: Yes normal facial exam Eyes General: appearance normal, both eyes and all related structures EOM: EOMs intact bilaterally Neck Neck: Yes normal visual inspection and Yes no meningeal signs Chest Chest palpation & inspection: normal inspection of the chest, no crepitus and no tenderness Resp Effort & Inspection: normal respiratory effort and no respiratory distress Auscultation: clear to auscultation bilaterally Cardio Rate: regular rate Heart sounds: S1 normal heart sound present and S2 normal heart sound present GI Inspection: Yes normal to inspection Palpation (GI): Soft to palpation, nontender, no guarding and not rigid General: Yes no CVA tenderness Back/Spine/Pelvis Other: No midline thoracic/lumbar spinous tenderness/step-off or deformity. + right- sided lower lumbar/biotic paraspinal and MSK tenderness to palpation. No erythema/rash or ecchymosis Back: no CVA tenderness Skin Rashes: no rashes Wounds: no wounds Neuro Other: Strength intact throughout. No saddle anesthesia. Sensation intact to light touch. Neurovascular intact distally General: patient oriented x3, gait normal, tone normal, moves all extremities, no meningeal signs and no focal motor deficits Gait exam (Neuro): Normal gait present Motor exam (neuro): 5/5 motor strength present throughout Extrem General: Yes normal to inspection Course Course Course Narrative: -1440--no leukocytosis. Labs otherwise reassuring. UA improved from priors XR chest 1V IMPRESSION: Coarse interstitial markings are nonspecific, but suggest chronic interstitial changes/COPD. Correlate with patient history. No acute cardiopulmonary process. CT abdomen pelvis wo IV con IMPRESSION: 1.? A cause for the patient's right-sided low back pain has not been found. 2.? Incidental note made of emphysema, benign right adrenal adenoma, colonic diverticulosis without diverticulitis and severe degenerative changes in the spine and hips. ? Fleischner guidelines were followed. >> 1453--suspect patient's symptoms are due to severe arthritis. Discussed continuation of previously prescribed medications including antibiotics and stool softener/laxatives. Patient reports symptomatic improvement in the ED, denies severe pain at present. Feel safe for discharge home Results discussed with patient including worrisome signs and symptoms and strict return precautions, and when to return to the emergency department. They verbalized understanding and feel safe for discharge at this time. Medications Administered Discontinued Medications Generic Name Dose Route Start Last Admin Trade Name Shermanq PRN Reason Stop Dose Admin Acetaminophen 650 mg 10/13/22 14:54 10/13/22 15:08 Acetaminophen 325 Mg Tablet PO 10/13/22 14:55 650 mg ONCE ONE Administration Albuterol Sulfate 2.5 mg/ 0 mg 10/13/22 11:17 10/13/22 11:29 Ipratropium [place] 0.5 mg INHALE 10/13/22 11:18 1 each ONCE ONE Administration Lidocaine 1 patch 10/13/22 14:54 10/13/22 15:08 Lidocaine 4 % Patch Adh..Patch TRANSDERMA 10/13/22 14:55 1 patch ONCE ONE Administration Protocol Medical Decision Making Medical Decision Making MDM Narrative: 87-year-old female with a past medical history of 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 Also reports continued constipation and rectal discomfort. On exam initially tachycardic likely from pain, NAD, nontoxic appearing, no midline spinous tenderness, abdomen soft/nontender, no red flag symptoms. Concern for MSK pain vs pyelonephritis vs osteoarthritis vs constipation/SBO or fecal impaction. Plan: Labs, UA, repeat CT, CXR Please refer to course for remaining clinical decision making, interpretation of labs/imaging results, and discussions with consultants and/or family members. Differential Diagnosis Differential Diagnoses: The differential diagnosis associated with the presentation includes As above Admission/Observation Consideration of admission/observation: Escalation of care including admission/observation considered Lab Data MDM Lab Attestation statement: I reviewed the patient's lab results. 10/13/22 11:43 10/13/22 11:43 Labs: Lab Results 10/13/22 10/13/22 10/13/22 Range/Units 11:43 11:43 13:49 WBC 7.6 (4.8-10.8) X10*3/uL RBC 4.12 L (4.20-5.50) X10*6/uL Hgb 12.9 (12.0-16.0) g/dl Hct 40.6 (37.0-47.0) % MCV 98.5 H (80.0-98.0) fL MCH 31.3 (27.0-33.0) pg MCHC 31.8 (31.0-35.0) g/dl RDW 12.6 (11.0-16.0) % Plt Count 234 (160-400) X10*3/uL MPV 10.9 (9.4-12.3) fL Immature Gran % (Auto) 0.4 (0.0-0.4) % Neut % (Auto) 59.2 (45-73) % Lymph % (Auto) 21.0 (20-40) % [place] % (Auto) 13.6 H (2-11) % Eos % (Auto) 5.0 H (0-4) % Baso % (Auto) 0.8 (0-2) % Lymph # (Auto) 1.6 (1.2-4.9) X10*3/uL [place] # (Auto) 1.0 (0.1-1.2) X10*3/uL Eos # (Auto) 0.4 (0.0-0.4) X10*3/uL Baso # (Auto) 0.1 (0.0-0.2) X10*3/uL Abs Immat Gran (auto) 0.03 (0.00-0.03) X10*3/uL Absolute Neuts (auto) 4.5 (2.0-8.3) x10*3/uL Absolute Nucleated RBC 0.000 (0.0-0.012) X10*3/uL Nucleated RBC % (auto) 0.0 (0.0-0.2) /100WBC Sodium 144 (135-145) mmol/L Potassium 3.8 (3.3-5.1) mmol/L Chloride 107 (96-108) mmol/L Carbon Dioxide 32 H (22-29) mmol/L Anion Gap 9 L (12-20) BUN 18 H (9-16) mg/dL Creatinine 0.89 (0.5-1.4) mg/dL Estim Creat Clear Calc 38.3 Estimated GFR 60 Random Glucose 112 (60-115) mg/dL Calcium 8.8 D (8.4-10.2) mg/dL Total Bilirubin 0.6 (0.0-1.0) mg/dL Direct Bilirubin 0.2 (0.0-0.5) mg/dL AST 19 (5-31) U/L ALT 10 (0-31) U/L Alkaline Phosphatase 74 (39-117) U/L Total Protein 6.0 L (6.5-8.0) g/dL Albumin 3.9 (3.5-5.0) g/dL Lipase 19 (8-78) U/L Urine Color Yellow Urine Appearance Clear Urine pH 7.5 (5.0-9.0) Ur Specific [place] 1.015 (1.005-1.025) Urine Protein Negative (Neg-Trace) mg/dL Urine Glucose (UA) Negative (Negative) mg/dL Urine Ketones Negative (Negative) mg/dL Urine Blood Negative (Negative) Urine Nitrite Negative (Negative) Ur Leukocyte Esterase Moderate (2+) H (Negative) Urine RBC 0-2 (0-2) /HPF Urine WBC 0-5 (0-5) /HPF Ur Squamous Epith Cells 0-2 (0-2) /HPF Urine Bacteria None Seen (None Seen) Hyaline Casts 0-2 (0-2) /LPF Radiology Impression Discussion of test interpretation with radiology: I have reviewed the radiologist's reading. External Record Review External record reviewed: Inpatient record, Office record, Outpatient record, Prior outpatient labs, Prior outpatient radiology, Primary care record and Outside ED record Discharge Plan Discharge Clinical Impression: Osteoarthritis, Back pain Patient Disposition: Home, Self-Care Instructions: Osteoarthritis (DC), Back Pain (ED) Additional Instructions: Your CT scan does not show a cause of your right-sided low back pain, it does show some severe degenerative changes of her spine and hips which is likely causing her pain. Otherwise your blood work and urine are reassuring. Continue previously prescribed antibiotics and stool softener/laxatives If you do not have a bowel movement in the next 48 hours, pain persists or worsens return to the emergency department Prescriptions: New acetaminophen [Tylenol Extra Strength] 500 mg tablet 500 mg PO Q6H PRN (Reason: fever or pain) Qty: 14 0RF lidocaine [Lidoderm] 5 % adhesive patch,medicated 1 patch topical DAILY MDD remove after 12 hours PRN (Reason: pain) Qty: 30 0RF Rx Instructions: leave on most painful area for up to 12 hrs No Action leflunomide [Arava] 10 mg tablet 10 mg PO DAILY Qty: 30 3RF polyethylene glycol 3350 [Miralax] 17 gram/dose powder 17 g PO BID Qty: 119 0RF docusate sodium [Colace] 100 mg capsule 100 mg PO BID Qty: 60 0RF cefuroxime axetil 250 mg tablet 250 mg PO BID Qty: 14 0RF lactulose 10 gram/15 mL solution 15 ml PO DAILY PRN (Reason: laxative effect) Qty: 90 0RF nitrofurantoin monohyd/m-cryst [Macrobid] 100 mg capsule 100 mg PO Q12H 7 Days Qty: 14 0RF Rx Instructions: must administer with a meal/food celecoxib [Celebrex] 200 mg capsule 200 mg PO BID multivitamin Tablet 1 tab PO DAILY calcium carbonate-vitamin D3 [Calcium 600 + D(3)] 600 mg-10 mcg (400 unit) tablet 1 tab PO DAILY triamterene-hydrochlorothiazid 37.5-25 mg tablet 1 tab PO DAILY Trelegy Ellipta 100-62.5-25 mcg blister with device 1 ea inhalation DAILY albuterol sulfate 90 mcg/actuation HFA aerosol inhaler 2 puff inhalation Q6H PRN (Reason: wheezing) diltiazem HCl 30 mg tablet 30 mg PO BID cetirizine 10 mg tablet 10 mg PO DAILY acetaminophen [Tylenol] 325 mg capsule 325 mg PO QID PRN Referrals: Lubna Carmichael MD [Primary Care Provider] - 2 days Interventions: ED Discharge Assessment Last Done: 10/13/22 15:49 Discharge Date/Time: 10/13/22 15:50
--- NOTE | 2022-10-13 11:33 | PC.NURSE ---
Pt found sitting on side of bed, airway open and patent, no obvious signs of distress, no difficulty/labored breathing, speaking in full sentences. Pt a&ox4, skin pink, warm, and dry. Lung sounds clr left and upper right, some crackles noted in right lower. Heart sounds normal. Bowel sounds present and active all santana, abdomen soft and non-tender upon palpation. No edema noted. Pt reports pain in lower back. Pt reports that she hasn't urinated a lot, area is unremarkable, pt denies pain upon touch. Patient aware of plan of care.
[2022-10-13 11:35] VITALS: PULSE 86; RESP 15; O2SAT 98
[2022-10-13 11:48] LABS: MANUAL DIFF FLAG NO
[2022-10-13 11:52] LABS: Basophils Absolute Auto 0.1 X10*3/uL (0.0-0.2); Basophils Percent Auto 0.8 % (0-2); Eosinophils Absolute Auto 0.4 X10*3/uL (0.0-0.4); Hematocrit 40.6 % (37.0-47.0); Hemoglobin 12.9 g/dl (12.0-16.0); Imm Gran Abs Auto 0.03 X10*3/uL (0.00-0.03); Imm Gran Pct Auto 0.4 % (0.0-0.4); Lymphocytes Absolute Auto 1.6 X10*3/uL (1.2-4.9); Mean Corpuscular HGB Conc 31.8 g/dl (31.0-35.0); Mean Corpuscular Hemoglobin 31.3 pg (27.0-33.0); Mean Corpuscular Volume 98.5 fL (80.0-98.0); Mean Platelet Volume 10.9 fL (9.4-12.3); Monocytes Percent Auto 13.6 % (2-11); Neutrophils Absolute Auto 4.5 x10*3/uL (2.0-8.3); Neutrophils Percent Auto 59.2 % (45-73); Platelet Count 234 X10*3/uL (160-400); Red Blood Count 4.12 X10*6/uL (4.20-5.50); Red Cell Distribution Width 12.6 % (11.0-16.0); White Blood Count 7.6 X10*3/uL (4.8-10.8)
[2022-10-13 12:09] LABS: Alanine Aminotransferase 10 U/L (0-31); Albumin Level 3.9 g/dL (3.5-5.0); Alkaline Phosphatase 74 U/L (39-117); Anion Gap 9 (12-20); Aspartate Amino Transferase 19 U/L (5-31); Bilirubin Direct 0.2 mg/dL (0.0-0.5); Bilirubin Total 0.6 mg/dL (0.0-1.0); Blood Urea Nitrogen 18 mg/dL (9-16); Calcium 8.8 mg/dL (8.4-10.2); Carbon Dioxide 32 mmol/L (22-29); Chloride 107 mmol/L (96-108); Creatinine Clr Calc Pharmacy 38.3; Estimated Glomerular Filt Rate 60; Glucose Random 112 mg/dL (60-115); Lipase 19 U/L (8-78); Potassium 3.8 mmol/L (3.3-5.1); Sodium 144 mmol/L (135-145)
[2022-10-13 14:06] LABS: Appearance Urine Clear; Color Urine Yellow; Glucose Urine UA Negative (Negative); Leukocyte Esterase Urine Moderate (2+) (Negative); Nitrite Urine Negative (Negative); PH 7.5 (5.0-9.0); Specific Gravity - Urine 1.015 (1.005-1.025); UMIC TRIGGER UACC YES; Urine Blood Negative (Negative); Urine Ketones Negative (Negative); Urine Protein Negative (Neg-Trace)
[2022-10-13 14:26] LABS: Bacteria Urine None Seen (None Seen); Hyaline Casts Urine 0-2 /LPF (0-2); RBC Urine 0-2 /HPF (0-2); Squamous Epithelial Cell Urine 0-2 /HPF (0-2); WBC Urine 0-5 /HPF (0-5)
[2022-10-13] MEDS: Lidocaine 4 % Patch ADH..PATCH 1 PATCH TRANSDERMA (15:08)
[2022-10-13] MEDS: Acetaminophen 325 MG TABLET 650 MG PO (15:08)
== END 2022-10-13 15:50 | disposition home or self-care (01) ==
PROVIDERS: Physician Assistant; Emergency Provider Emergency Medicine Emergency Medical Services; PCP Internal Medicine
DX: M54.50 Low back pain, unspecified (principal); M47.816 Spondylosis without myelopathy or radiculopathy, lumbar region; M16.0 Bilateral primary osteoarthritis of hip; I10 Essential (primary) hypertension; Z79.899 Other long term (current) drug therapy
CPT/HCPCS: 36415; 71045; 74176; 80048; 80076; 81001; 81003; 83690; 85025; 94640; 99284; 99285

== ENCOUNTER 2022-10-15 19:26 | Emergency (ER) | payer MEDICARE, SELFPAY ==
--- NOTE | ~2022-10-15 | CT_ITS ---
EXAMINATION: CT cervical spine wo IV con, CT head/brain wo IV con INDICATION INFORMATION: Additional Information: DOSE= 211 MGY : COMPARISON: None TECHNIQUE: Separate noncontrast CT examinations of the head and cervical spine were performed. Coronal and sagittal reformats were obtained at the acquisition workstation. This CT examination was performed using dose optimization techniques as appropriate, variously including the following: * Automated exposure control * Adjustment of mA and/or kV according to patient size (this includes techniques or standardized protocols for targeted exams where dose is matched to indication/reason for exam; i.e. extremities or head) * Use of iterative reconstruction technique DLP: 1066 mGy-cm FINDINGS: HEAD: There is no evidence of acute intracranial hemorrhage or territorial infarction. to white matter differentiation is well preserved. No abnormal mass effect or midline shift is seen. No extra-axial fluid collections are identified. There is prominence of ventricles and cisterns and dilatation of sulci. There are periventricular white matter changes as a sequela of microangiopathy. The cerebellar tonsils are well positioned. No acute osseous or soft tissue abnormality. Visualized portions of the orbits are unremarkable. The mastoid air cells are well aerated and visualized portions of the paranasal sinuses demonstrate mucosal thickening, mucous retention cyst in the right maxillary sinus mucosal thickening in the left maxillary sinus CERVICAL SPINE: No evidence of acute fracture or traumatic subluxation of the cervical spine. There is straightening of cervical lordosis with grade 1 anterior listhesis of C3 over C4, C4 over C5 and narrowing of C5-C6 and C6-C7 intervertebral disc spaces as well as anterior listhesis of C7 over T1. No evidence of fractures or spinal canal stenosis or significant foraminal stenosis. There is no cervical lymphadenopathy. The visualized thyroid gland is unremarkable. The visualized lung apices are clear. CT/CT cervical spine wo IV con IMPRESSION: 1. No acute intracranial pathology. 2. Cerebral atrophy and sequela of microangiopathy. 3. Chronic sinus disease. 4. Degenerative changes in the cervical spine with straightening of cervical lordosis and anterolisthesis of C3 over C4, C4 over C5 and C7 over T1.
[2022-10-15 19:57] VITALS: BP 146/77; PULSE 91; RESP 18; TEMP 37.6; O2SAT 89; BMI 21.9
[2022-10-15 20:30] LABS: MANUAL DIFF FLAG NO
[2022-10-15 20:31] LABS: Basophils Absolute Auto 0.1 X10*3/uL (0.0-0.2); Basophils Percent Auto 0.9 % (0-2); Eosinophils Percent Auto 0.2 % (0-4); Hematocrit 38.9 % (37.0-47.0); Hemoglobin 12.5 g/dl (12.0-16.0); Imm Gran Abs Auto 0.02 X10*3/uL (0.00-0.03); Imm Gran Pct Auto 0.2 % (0.0-0.4); Lymphocytes Percent Auto 11.9 % (20-40); Mean Corpuscular HGB Conc 32.1 g/dl (31.0-35.0); Mean Corpuscular Hemoglobin 31.6 pg (27.0-33.0); Mean Corpuscular Volume 98.2 fL (80.0-98.0); Mean Platelet Volume 10.9 fL (9.4-12.3); Monocytes Absolute Auto 1.3 X10*3/uL (0.1-1.2); Monocytes Percent Auto 15.6 % (2-11); Neutrophils Absolute Auto 6.1 x10*3/uL (2.0-8.3); Neutrophils Percent Auto 71.2 % (45-73); Platelet Count 202 X10*3/uL (160-400); Red Blood Count 3.96 X10*6/uL (4.20-5.50); Red Cell Distribution Width 12.8 % (11.0-16.0); White Blood Count 8.5 X10*3/uL (4.8-10.8)
[2022-10-15 20:56] LABS: Appearance Urine Clear; Color Urine Yellow; Glucose Urine UA Negative (Negative); Leukocyte Esterase Urine Negative (Negative); Nitrite Urine Negative (Negative); UMIC TRIGGER UACC YES; Urine Blood Negative (Negative); Urine Ketones Negative (Negative); Urine Protein 30 (1+) mg/dL (Neg-Trace)
[2022-10-15 21:00] LABS: Bacteria Urine None Seen (None Seen); Hyaline Casts Urine 0-2 /LPF (0-2); RBC Urine 0-2 /HPF (0-2); Squamous Epithelial Cell Urine 0-2 /HPF (0-2); WBC Urine 0-5 /HPF (0-5)
[2022-10-15 21:06] LABS: Alanine Aminotransferase 9 U/L (0-31); Albumin Level 3.6 g/dL (3.5-5.0); Alkaline Phosphatase 76 U/L (39-117); Anion Gap 9 (12-20); Aspartate Amino Transferase 19 U/L (5-31); Bilirubin Total 0.3 mg/dL (0.0-1.0); Blood Urea Nitrogen 21 mg/dL (9-16); Calcium 8.2 mg/dL (8.4-10.2); Carbon Dioxide 29 mmol/L (22-29); Chloride 107 mmol/L (96-108); Creatinine Clr Calc Pharmacy 39.1; Estimated Glomerular Filt Rate > 60; Glucose Random 108 mg/dL (60-115); Magnesium 2.2 mg/dL (1.6-2.6); Potassium 4.2 mmol/L (3.3-5.1); Sodium 141 mmol/L (135-145); Total Protein 5.7 g/dL (6.5-8.0)
[2022-10-15 21:09] LABS: Influenza A PCR NEGATIVE (Negative); Influenza B PCR NEGATIVE (Negative); Resp Syncy Virus RNA Qual PCR NEGATIVE (Negative); SARS COV2 PCR INHOUSE POSITIVE (Negative)
--- NOTE | 2022-10-15 21:47 | ED_ITS ---
HPI - Fall General Chief Complaint: Fall Stated Complaint: fell in bathroom, disoriented Time Seen by Provider: 10/15/22 21:00 Source: patient and family (Daughter) Mode of arrival: ambulatory History of Present Illness HPI Narrative: 87-year-old female with history of UTI, COPD and told a friend of hers that she fell today but does not remember details regarding the event. Both the patient and her daughter deny any use blood thinners and patient recently completed a course of antibiotics for a UTI. Related Data Home Medications Medication Instructions Recorded Confirmed calcium carbonate 600 mg-vitamin 1 tab PO DAILY 04/08/22 09/03/22 D3 10 mcg (400 unit) tablet (Calcium 600 + D(3)) celecoxib 200 mg capsule (Celebrex) 200 mg PO BID 04/08/22 09/03/22 multivitamin 1 tab PO DAILY 04/08/22 09/03/22 albuterol sulfate 90 mcg/actuation 2 puff inhalation Q6H PRN wheezing 07/13/22 09/03/22 aerosol inhaler cetirizine 10 mg tablet 10 mg PO DAILY 07/13/22 09/03/22 diltiazem HCl 30 mg tablet 30 mg PO BID 07/13/22 09/03/22 fluticasone fur. 100 mcg-umeclid 1 ea inhalation DAILY 07/13/22 09/03/22 62.5 mcg-vilant 25 mcg inhalat.powder (Trelegy Ellipta) triamterene 37.5 1 tab PO DAILY 07/13/22 09/03/22 mg-hydrochlorothiazide 25 mg tablet acetaminophen 325 mg capsule 325 mg PO QID PRN 08/03/22 09/03/22 (Tylenol) Previous Rx's Medication Instructions Recorded nitrofurantoin 100 mg PO Q12H 7 days #14 caps 09/03/22 monohydrate/macrocrystals 100 mg capsule (Macrobid) leflunomide 10 mg tablet (Arava) 10 mg PO DAILY #30 tabs 10/08/22 cefuroxime axetil 250 mg tablet 250 mg PO BID #14 tabs 10/10/22 docusate sodium 100 mg capsule 100 mg PO BID #60 caps 10/10/22 (Colace) lactulose 10 gram/15 mL oral 15 ml PO DAILY PRN laxative effect 10/10/22 solution #90 mL polyethylene glycol 3350 17 17 g PO BID #119 grams 10/10/22 gram/dose oral powder (Miralax) acetaminophen 500 mg tablet 500 mg PO Q6H PRN fever or pain 10/13/22 (Tylenol Extra Strength) #14 tabs lidocaine 5 % topical patch 1 patch topical DAILY PRN pain #30 10/13/22 (Lidoderm) ea Allergies Allergy/AdvReac Type Severity Reaction Status Date / Time Seasonal Allergies Allergy Intermediate congestion Verified 09/03/22 10:11 acetaminophen [From Percocet] Allergy Unknown unknown Verified 09/03/22 10:11 oxycodone [From Percocet] Allergy Unknown unknown Verified 09/03/22 10:11 Review of Systems Review of Systems: Pertinent positives and negatives as stated in [facility] Past Medical History Source: nursing notes reviewed Medical History FHx: cholecystectomy Family History Family History Mother Acute arthritis Father No problems noted. Mother Acute arthritis Social History Social History Household Members Other:: Resident [facility] Housing: Other Housing Other:: [facility] Alcohol intake: never Patient Tobacco Use Status: Former Tobacco user (over 30 years ) Smoked in Last 30 Days: No e-Cigarette/Vaping Use: Never Used Use of substances other than those prescribed or required for medical reasons: No Advance Directives: No Advance Directives Information Provided: No service: No Current occupational status: retired Current occupation: Former PT Cognitive needs: No Hearing needs: No Vision needs: Yes Physical Exam Vital Signs: Vital Signs: Last Vital Signs Temp 99.6 F 10/15/22 19:57 Pulse 91 10/15/22 19:57 Resp 18 10/15/22 19:57 BP 146/77 H 10/15/22 19:57 Pulse Ox 96 10/15/22 21:52 O2 Del Method Nasal Cannula 10/15/22 21:52 O2 Flow Rate 2 10/15/22 21:52 BMI result Body Mass Index 21.9 VITAL SIGNS: Reviewed. GENERAL: Well developed, well nourished, in no acute distress. HEAD: Normocephalic/atraumatic, no facial tenderness to palpation/ecchymosis/abrasions EYES: PERRLA, EOMI EARS: Ext canals without abnormality NOSE: Nares patent bilateral OROPHARYNX: no oral lesions noted, posterior pharynx clear NECK: Supple, no adenopathy, no midline cervical spine tenderness or step-offs LUNGS: Normal breath sounds. No adventitious sounds or accessory muscle use; CHEST WALL: No chest wall tenderness/deformity/crepitus CARDIOVASCULAR: Regular rate and rhythm without noted murmurs ABDOMEN: Soft, non-tender, non-distended with bowel sounds. BACK: No midline vertebral tenderness or step-offs PELVIS: Stable, nontender MUSCULOSKELETAL: No tenderness, deformities, or effusions noted on gross inspection. EXTREMITIES: No cyanosis, clubbing or edema; FULL RANGE OF MOTION WITHOUT CLICKING ARE DEFORMITY NOTED AT BILATERAL SHOULDER/ELBOW/WRIST, HIP FLEXORS, KNEES, ANKLE. SKIN: Inspection of the skin reveals no rashes, abrasions/lacerations NEUROLOGIC: Alert and oriented x 3. Strength and sensation to light touch were grossly intact x 4. Medical Decision Making Medical Decision Making MDM Narrative: 87-year-old female with history and clinical presentation of what appears to be a benign fall as there is no evidence of infection, anemia, electrolyte abnormalities. All CT imaging is negative for acute findings. However, patient is noted to be COVID-19 positive. 2240: I spoke with the daughter and the patient at bedside explain that to cover all the bases my recommendation is that patient should wear her oxygen at all times in set of only at night. And I encouraged them to return to the emergency room should patient develop any significant fever, chills, difficulty breathing. Differential Diagnosis Please see the discussion above Lab Data Please see the discussion above 10/15/22 20:25 10/15/22 20:45 Labs: Lab Results 10/15/22 10/15/22 10/15/22 Range/Units 20:25 20:25 20:36 WBC 8.5 (4.8-10.8) X10*3/uL RBC 3.96 L (4.20-5.50) X10*6/uL Hgb 12.5 (12.0-16.0) g/dl Hct 38.9 (37.0-47.0) % MCV 98.2 H (80.0-98.0) fL MCH 31.6 (27.0-33.0) pg MCHC 32.1 (31.0-35.0) g/dl RDW 12.8 (11.0-16.0) % Plt Count 202 (160-400) X10*3/uL MPV 10.9 (9.4-12.3) fL Immature Gran % (Auto) 0.2 (0.0-0.4) % Neut % (Auto) 71.2 (45-73) % Lymph % (Auto) 11.9 L (20-40) % Morgan % (Auto) 15.6 H (2-11) % Eos % (Auto) 0.2 (0-4) % Baso % (Auto) 0.9 (0-2) % Lymph # (Auto) 1.0 L (1.2-4.9) X10*3/uL Morgan # (Auto) 1.3 H (0.1-1.2) X10*3/uL Eos # (Auto) 0.0 (0.0-0.4) X10*3/uL Baso # (Auto) 0.1 (0.0-0.2) X10*3/uL Abs Immat Gran (auto) 0.02 (0.00-0.03) X10*3/uL Absolute Neuts (auto) 6.1 (2.0-8.3) x10*3/uL Absolute Nucleated RBC 0.000 (0.0-0.012) X10*3/uL Nucleated RBC % (auto) 0.0 (0.0-0.2) /100WBC Sodium (135-145) mmol/L Potassium (3.3-5.1) mmol/L Chloride (96-108) mmol/L Carbon Dioxide (22-29) mmol/L Anion Gap (12-20) BUN (9-16) mg/dL Creatinine (0.5-1.4) mg/dL Estim Creat Clear Calc Estimated GFR Random Glucose (60-115) mg/dL Calcium (8.4-10.2) mg/dL Magnesium (1.6-2.6) mg/dL Total Bilirubin (0.0-1.0) mg/dL AST (5-31) U/L ALT (0-31) U/L Alkaline Phosphatase (39-117) U/L Total Protein (6.5-8.0) g/dL Albumin (3.5-5.0) g/dL Urine Color Yellow Urine Appearance Clear Urine pH 7.0 (5.0-9.0) Ur Specific Kincaid 1.020 (1.005-1.025) Urine Protein 30 (1+) H (Neg-Trace) mg/dL Urine Glucose (UA) Negative (Negative) mg/dL Urine Ketones Negative (Negative) mg/dL Urine Blood Negative (Negative) Urine Nitrite Negative (Negative) Ur Leukocyte Esterase Negative (Negative) Urine RBC 0-2 (0-2) /HPF Urine WBC 0-5 (0-5) /HPF Ur Squamous Epith Cells 0-2 (0-2) /HPF Urine Bacteria None Seen (None Seen) Hyaline Casts 0-2 (0-2) /LPF Influenza Type A (PCR) NEGATIVE (Negative) Influenza Type B (PCR) NEGATIVE (Negative) RSV RNA Qual (PCR) NEGATIVE (Negative) SARS-CoV-2 RNA (RT-PCR) POSITIVE A (Negative) 10/15/22 Range/Units 20:45 WBC (4.8-10.8) X10*3/uL RBC (4.20-5.50) X10*6/uL Hgb (12.0-16.0) g/dl Hct (37.0-47.0) % MCV (80.0-98.0) fL MCH (27.0-33.0) pg MCHC (31.0-35.0) g/dl RDW (11.0-16.0) % Plt Count (160-400) X10*3/uL MPV (9.4-12.3) fL Immature Gran % (Auto) (0.0-0.4) % Neut % (Auto) (45-73) % Lymph % (Auto) (20-40) % Morgan % (Auto) (2-11) % Eos % (Auto) (0-4) % Baso % (Auto) (0-2) % Lymph # (Auto) (1.2-4.9) X10*3/uL Morgan # (Auto) (0.1-1.2) X10*3/uL Eos # (Auto) (0.0-0.4) X10*3/uL Baso # (Auto) (0.0-0.2) X10*3/uL Abs Immat Gran (auto) (0.00-0.03) X10*3/uL Absolute Neuts (auto) (2.0-8.3) x10*3/uL Absolute Nucleated RBC (0.0-0.012) X10*3/uL Nucleated RBC % (auto) (0.0-0.2) /100WBC Sodium 141 (135-145) mmol/L Potassium 4.2 (3.3-5.1) mmol/L Chloride 107 (96-108) mmol/L Carbon Dioxide 29 (22-29) mmol/L Anion Gap 9 L (12-20) BUN 21 H (9-16) mg/dL Creatinine 0.80 (0.5-1.4) mg/dL Estim Creat Clear Calc 39.1 Estimated GFR > 60 Random Glucose 108 (60-115) mg/dL Calcium 8.2 L D (8.4-10.2) mg/dL Magnesium 2.2 (1.6-2.6) mg/dL Total Bilirubin 0.3 (0.0-1.0) mg/dL AST 19 (5-31) U/L ALT 9 (0-31) U/L Alkaline Phosphatase 76 (39-117) U/L Total Protein 5.7 L (6.5-8.0) g/dL Albumin 3.6 (3.5-5.0) g/dL Urine Color Urine Appearance Urine pH (5.0-9.0) Ur Specific Kincaid (1.005-1.025) Urine Protein (Neg-Trace) mg/dL Urine Glucose (UA) (Negative) mg/dL Urine Ketones (Negative) mg/dL Urine Blood (Negative) Urine Nitrite (Negative) Ur Leukocyte Esterase (Negative) Urine RBC (0-2) /HPF Urine WBC (0-5) /HPF Ur Squamous Epith Cells (0-2) /HPF Urine Bacteria (None Seen) Hyaline Casts (0-2) /LPF Influenza Type A (PCR) (Negative) Influenza Type B (PCR) (Negative) RSV RNA Qual (PCR) (Negative) SARS-CoV-2 RNA (RT-PCR) (Negative) Independent Interpretation I performed an independent interpretation of an: EKG Interpretation: Normal sinus rhythm, HR-78, no STEMI, NE/QRS/QTC is within normal limits. Radiology Impression Radiologist Impression: My interpretation is in agreement with radiology's impression of the imaging studies. External Record Review External record reviewed: Outpatient record and Prior outpatient labs Discharge Plan Discharge Clinical Impression: Fall, Viral syndrome, Lab test positive for detection of COVID-19 virus Patient Disposition: er SNF Instructions: Fall Prevention for Older Adults (ED), COVID-19 (Coronavirus Disease 2019) (ED), Viral Syndrome (ED) Additional Instructions: 1. Resume all home medications as prescribed. 2. Isolate for the next 5 days as you have been identified as being COVID-19 positive. In addition, please wear your oxygen at all times. Treat any body aches, temperatures greater than 100.4 with [id number] Tylenol and/or ibuprofen. 3. Recommend following up with your primary care provider on Tuesday morning via telehealth appointment. Return to the ER for any difficulty breathing. Prescriptions: No Action leflunomide [Arava] 10 mg tablet 10 mg PO DAILY Qty: 30 3RF acetaminophen [Tylenol Extra Strength] 500 mg tablet 500 mg PO Q6H PRN (Reason: fever or pain) Qty: 14 0RF lidocaine [Lidoderm] 5 % adhesive patch,medicated 1 patch topical DAILY MDD remove after 12 hours PRN (Reason: pain) Qty: 30 0RF Rx Instructions: leave on most painful area for up to 12 hrs polyethylene glycol 3350 [Miralax] 17 gram/dose powder 17 g PO BID Qty: 119 0RF docusate sodium [Colace] 100 mg capsule 100 mg PO BID Qty: 60 0RF cefuroxime axetil 250 mg tablet 250 mg PO BID Qty: 14 0RF lactulose 10 gram/15 mL solution 15 ml PO DAILY PRN (Reason: laxative effect) Qty: 90 0RF nitrofurantoin monohyd/m-cryst [Macrobid] 100 mg capsule 100 mg PO Q12H 7 Days Qty: 14 0RF Rx Instructions: must administer with a meal/food celecoxib [Celebrex] 200 mg capsule 200 mg PO BID multivitamin Tablet 1 tab PO DAILY calcium carbonate-vitamin D3 [Calcium 600 + D(3)] 600 mg-10 mcg (400 unit) tablet 1 tab PO DAILY triamterene-hydrochlorothiazid 37.5-25 mg tablet 1 tab PO DAILY Trelegy Ellipta 100-62.5-25 mcg blister with device 1 ea inhalation DAILY albuterol sulfate 90 mcg/actuation HFA aerosol inhaler 2 puff inhalation Q6H PRN (Reason: wheezing) diltiazem HCl 30 mg tablet 30 mg PO BID cetirizine 10 mg tablet 10 mg PO DAILY acetaminophen [Tylenol] 325 mg capsule 325 mg PO QID PRN Referrals: Lubna Carmichael MD [Primary Care Provider] -
[2022-10-15 21:52] VITALS: O2SAT 96
--- NOTE | 2022-10-15 21:52 | ECG_ITS ---
Test Reason : DYSPNEA Blood Pressure : / mmHG Vent. Rate : 078 BPM Atrial Rate : 078 BPM P-R Int : 158 ms QRS Dur : 080 ms QT Int : 380 ms P-R-T Axes : 052 -21 018 degrees QTc Int : 433 ms Normal sinus rhythm Normal ECG No previous ECGs available Referred By: Iris Hernandez Electronically Signed By:Garcia Howard
== END 2022-10-15 22:58 | disposition skilled nursing facility (03) ==
PROVIDERS: Physician Assistant Medical; Emergency Provider Student in an Organized Health Care Education/Training Program; PCP Internal Medicine
DX: S09.90XA Unspecified injury of head, initial encounter (principal); U07.1 COVID-19; R51.9 Headache, unspecified; M54.2 Cervicalgia; W01.10XA Fall on same level from slipping, tripping and stumbling with subsequent striking against unspecified object, initial encounter; Y93.9 Activity, unspecified; Y92.9 Unspecified place or not applicable; Y99.9 Unspecified external cause status; Z79.899 Other long term (current) drug therapy
CPT/HCPCS: 0241U; 70450; 72125; 80053; 81001; 81003; 83735; 85025; 93005; 99284; 99285

== ENCOUNTER → 2022-11-18 09:59 | Outpatient (BNVA) | payer MEDICARE, SELFPAY | PROVIDERS: PCP Internal Medicine; Visit Provider Internal Medicine Rheumatology | DX: M17.11 Unilateral primary osteoarthritis, right knee (principal); M47.817 Spondylosis without myelopathy or radiculopathy, lumbosacral region; M05.10 Rheumatoid lung disease with rheumatoid arthritis of unspecified site; Z79.899 Other long term (current) drug therapy | CPT/HCPCS: 36415; 82565; 84450; 84460; 85025; 85652; 86140; 99212 ==

== ENCOUNTER 2023-01-04 11:58 | Emergency (ER) | payer MEDICARE, SELFPAY ==
--- NOTE | ~2023-01-04 | XR_ITS ---
Indication: Pain EXAMINATION: Lumbar sacral spine and thoracic spine. Comparison is made to sagittal imaging from CT of 10/13/2022. 3 views of the lumbar sacral spine show significant degenerative change but no evidence of acute compression injury or listhesis. Kyphosis created at L1-2. Significant loss of disc height with spurring. Scoliosis convex left apex at L3. The thoracic spine again show moderate degenerative changes. No convincing evidence for an acute compression injury. Scoliosis convex right apex at T9. XR/XR thoracic spine 3V IMPRESSION: Significant degenerative change in the lumbar spine with scoliosis. Moderate degeneration in the thoracic spine. No convincing evidence for an acute finding.
--- NOTE | ~2023-01-04 | XR_ITS ---
EXAMINATION: XR PELVIS CLINICAL INFORMATION: Pain COMPARISON: 10/13/2022 TECHNIQUE: AP view of the pelvis. FINDINGS: Extensive degenerative changes seen within the right greater than left hips. There is flattening of the right femoral head with associated subchondral sclerosis and cystic changes as well as corresponding sclerotic degenerative changes along the weightbearing portion of the acetabulum. There is prominent marginal osteophytosis in the right hip as well consistent with chronicity. Overall the appearance is similar to the 10/13/2022 CT scan. Degenerative changes in the visualized lower lumbar spine XR/XR pelvis 1-2V IMPRESSION: Extensive degenerative changes in the right greater than left hips. There is mild flattening of the right femoral head which is chronic in nature.
--- NOTE | ~2023-01-04 | XR_ITS ---
Indication: Pain EXAMINATION: Lumbar sacral spine and thoracic spine. Comparison is made to sagittal imaging from CT of 10/13/2022. 3 views of the lumbar sacral spine show significant degenerative change but no evidence of acute compression injury or listhesis. Kyphosis created at L1-2. Significant loss of disc height with spurring. Scoliosis convex left apex at L3. The thoracic spine again show moderate degenerative changes. No convincing evidence for an acute compression injury. Scoliosis convex right apex at T9. XR/XR lumbar spine 2-3V IMPRESSION: Significant degenerative change in the lumbar spine with scoliosis. Moderate degeneration in the thoracic spine. No convincing evidence for an acute finding.
[2023-01-04 12:10] VITALS: BP 122/85; PULSE 120; RESP 20; TEMP 36.6; O2SAT 93; BMI 21.5
--- NOTE | 2023-01-04 12:11 | ED.GENADULT ---
HPI - General Adult General Chief complaint: Fall Stated complaint: Back Pain S/P Fall 01/02/23 Time Seen by Provider: 01/04/23 17:03 Source: patient, family (Daughter), RN notes reviewed and old records reviewed Mode of arrival: ambulatory Limitations: no limitations History of Present Illness HPI narrative: 87-year-old female presents for evaluation of lower back pain. Patient reports that she slipped and fell backwards 2 days ago. She denies hitting her head or losing consciousness Denies any headache or neck pain. She complains of lower back pain. She has been using lidocaine patches with good improvement in her symptoms Currently her pain is a dull, 2/10 Her pain does not radiate into her legs. She denies any bladder or bowel incontinence Denies urinary retention She remains ambulatory with the use of her walker Patient reports that her home health aide ?felt a creaking when I bent forward and told me to get it checked out. ? Related Data Home Medications Medication Instructions Recorded Confirmed calcium carbonate 600 mg-vitamin 1 tab PO DAILY 04/08/22 11/18/22 D3 10 mcg (400 unit) tablet (Calcium 600 + D(3)) multivitamin 1 tab PO DAILY 04/08/22 11/18/22 albuterol sulfate 90 mcg/actuation 2 puff inhalation Q6H PRN wheezing 07/13/22 11/18/22 aerosol inhaler fluticasone fur. 100 mcg-umeclid 1 ea inhalation DAILY 07/13/22 11/18/22 62.5 mcg-vilant 25 mcg inhalat.powder (Trelegy Ellipta) acetaminophen 325 mg capsule 325 mg PO QID PRN 08/03/22 11/18/22 (Tylenol) polyethylene glycol 3350 17 17 g PO BID PRN 11/18/22 11/18/22 gram/dose oral powder (Miralax) Previous Rx's Medication Instructions Recorded leflunomide 10 mg tablet (Arava) 10 mg PO DAILY #30 tabs 10/08/22 docusate sodium 100 mg capsule 100 mg PO BID #60 caps 10/10/22 (Colace) lactulose 10 gram/15 mL oral 15 ml PO DAILY PRN laxative effect 10/10/22 solution #90 mL acetaminophen 500 mg tablet 500 mg PO Q6H PRN fever or pain 10/13/22 (Tylenol Extra Strength) #14 tabs lidocaine 5 % topical patch 1 patch topical DAILY PRN pain #30 10/13/22 (Lidoderm) ea celecoxib 200 mg capsule 200 mg PO BID #180 caps 12/10/22 cetirizine 10 mg tablet 10 mg PO DAILY #90 tabs 12/10/22 diltiazem HCl 30 mg tablet 30 mg PO BID #180 tabs 12/10/22 triamterene 37.5 1 tab PO DAILY #90 tabs 12/10/22 mg-hydrochlorothiazide 25 mg tablet Allergies Allergy/AdvReac Type Severity Reaction Status Date / Time Seasonal Allergies Allergy Intermediate congestion Verified 01/04/23 12:09 oxycodone [From Percocet] Allergy Unknown unknown Verified 01/04/23 12:09 Review of Systems Constitutional: Constitutional: Reports as per HPI, Denies chills, Denies fatigue, Denies fever(s) and Denies headache(s) ENT: Denies headache(s) Cardiovascular: Cardiovascular: Denies chest pain and Denies dyspnea Respiratory: Respiratory: Denies cough and Denies dyspnea Gastrointestinal: Gastrointestinal: Denies abdominal pain, Denies constipation and Denies vomiting Genitourinary: Genitourinary: Denies dysuria Musculoskeletal: Musculoskeletal: Reports back pain Neurologic: Denies headache(s) and Denies focal weakness Endocrine: Endocrine: Denies fatigue [facility] Past Medical History Medical History FHx: cholecystectomy Family History Family History (Updated 11/18/22 @ 10:13 by VIDA Watson) Mother Acute arthritis Father No problems noted. Mother Acute arthritis Social History Social History Household Members Other:: Resident [facility] Housing: Other Housing Other:: [facility] Alcohol intake: never Patient Tobacco Use Status: Former Tobacco user e-Cigarette/Vaping Use: Never Used Advance Directives: No Advance Directives Information Provided: Yes service: No Current occupational status: retired Current occupation: Former PT Cognitive needs: No Hearing needs: No Vision needs: Yes Physical Exam ED Vital Signs: Vital Signs - 24 hr 01/04/23 12:10 01/04/23 16:53 Temperature 98 F 98 F Pulse Rate 120 H 101 H Respiratory Rate 20 15 Blood Pressure 122/85 148/84 H Pulse Oximetry 93 92 Oxygen Delivery Method Room Air BMI result Body Mass Index 21.5 Const General: healthy appearing, comfortable, no acute distress, alert and awake Nutritional Appearance: well nourished Orientation/consciousness: patient oriented x3 HENMT Head: Yes normocephalic and Yes atraumatic Eyes Eyelids: Yes eyelids normal Conjunctivae: conjunctivae normal Sclerae: sclerae normal Corneas: corneas normal Pupils: Equal, round and reactive pupils present EOM: EOMs intact bilaterally Neck Neck: Yes full ROM Resp Effort & Inspection: normal respiratory effort, able to speak in complete sentences and not labored Cardio Rate: regular rate Rhythm: regular rhythm Back/Spine/Pelvis Other: Patient has a lidocaine patch to the lumbar sacral region. No step-offs or deformities to the entire thoracic, lumbar spine. However the patient does have some crepitus around the area of T10-T12 with forward flexion. Again, no palpable deformities in this area. She is nontender to palpation of the entire thoracic, lumbar spine. She has full range of motion to lower extremities bilaterally with negative straight leg raise. Cervical Spine: No Cervical spine tenderness Skin General skin exam: no rashes or lesions noted and elasticity normal Neuro General: patient oriented x3 Cranial nerves: Yes Equal, round and reactive pupils present and Yes Bilaterally intact EOM present Cognition (Neuro): normal cognition Extrem Other: Moving all extremities well without any obvious deformities Course Course Course Narrative: This is an RME: Additional HPI, ROS, PE not included below will be deferred to primary provider. Patient is an 87-year-old female with history of COPD, OA, rheumatoid lung disease with RA, HTN presenting to the emergency department with lower back pain after a trip and fall yesterday, landing on her bottom. Tachycardic in triage. No midline tenderness to palpation. Plan: EKG, labs, UA Reevaluation(s) Reevaluation #1: Patient remains asymptomatic, pelvic x-ray shows chronic changes and degenerative changes but no evidence of acute fracture. Patient is stable for discharge into the care of her daughter Time: 18:19 Medical Decision Making Medical Decision Making MDM Narrative: 87-year-old female presents for evaluation of lower back pain after a fall. She has mild crepitus to the thoracic spine but she reports her pain is much lower. X-rays of the lumbar and thoracic spine are negative for fracture. We will get a pelvic x-ray to rule out fracture as well. The patient's labs are significant for a very mild hyponatremia. UA without signs of infection. The patient is ambulatory and reports improved with lidocaine patches. I feel it is appropriate to continue lidocaine patches viral than oral medication to prevent sedated the patient and increased risk of falls. Denies head strike, there are no objective signs of head trauma. No C-spine tenderness and she has full range of motion. There for CT scans of brain and cervical spine are deferred. Differential Diagnosis Pain Osteoporosis Compression fracture Vertebral fracture Pelvic fracture Lab Data MDM Lab Attestation statement: I reviewed the patient's lab results. 01/04/23 12:52 01/04/23 12:52 Labs: Lab Results 01/04/23 01/04/23 01/04/23 Range/Units 12:52 12:52 12:52 WBC 6.7 (4.8-10.8) X10*3/uL RBC 4.07 L (4.20-5.50) X10*6/uL Hgb 12.6 (12.0-16.0) g/dl Hct 39.2 (37.0-47.0) % MCV 96.3 (80.0-98.0) fL MCH 31.0 (27.0-33.0) pg MCHC 32.1 (31.0-35.0) g/dl RDW 12.9 (11.0-16.0) % Plt Count 254 (160-400) X10*3/uL MPV 10.5 (9.4-12.3) fL Immature Gran % (Auto) 0.1 (0.0-0.4) % Neut % (Auto) 51.7 (45-73) % Lymph % (Auto) 26.1 (20-40) % [place] % (Auto) 13.2 H (2-11) % Eos % (Auto) 7.9 H (0-4) % Baso % (Auto) 1.0 (0-2) % Lymph # (Auto) 1.7 (1.2-4.9) X10*3/uL [place] # (Auto) 0.9 (0.1-1.2) X10*3/uL Eos # (Auto) 0.5 H (0.0-0.4) X10*3/uL Baso # (Auto) 0.1 (0.0-0.2) X10*3/uL Abs Immat Gran (auto) 0.01 (0.00-0.03) X10*3/uL Absolute Neuts (auto) 3.4 (2.0-8.3) x10*3/uL Absolute Nucleated RBC 0.000 (0.0-0.012) X10*3/uL Nucleated RBC % (auto) 0.0 (0.0-0.2) /100WBC Sodium 146 H (135-145) mmol/L Potassium 3.6 (3.3-5.1) mmol/L Chloride 107 (96-108) mmol/L Carbon Dioxide 30 H (22-29) mmol/L Anion Gap 13 (12-20) BUN 23 H (9-16) mg/dL Creatinine 0.81 (0.5-1.4) mg/dL Estim Creat Clear Calc 42.2 Estimated GFR > 60 Random Glucose 129 H (60-115) mg/dL Calcium 9.9 D (8.4-10.2) mg/dL Total Bilirubin 0.6 (0.0-1.0) mg/dL AST 23 (5-31) U/L ALT 9 (0-31) U/L Alkaline Phosphatase 82 (39-117) U/L Troponin I High Sens < 2.7 (<3.5-17.0) ng/L Total Protein 6.4 L (6.5-8.0) g/dL Albumin 3.7 (3.5-5.0) g/dL Discharge Plan Discharge Clinical Impression: Acute exacerbation of chronic low back pain Patient Disposition: Home, Self-Care Instructions: Back Pain (ED) Additional Instructions: Your x-rays did not show any evidence of fracture to your spine or pelvis. You may continue using Tylenol and lidocaine patches to treat your symptoms Follow-up with your primary doctor Prescriptions: No Action leflunomide [Arava] 10 mg tablet 10 mg PO DAILY Qty: 30 3RF cetirizine 10 mg tablet 10 mg PO DAILY Qty: 90 3RF celecoxib 200 mg capsule 200 mg PO BID Qty: 180 1RF diltiazem HCl 30 mg tablet 30 mg PO BID Qty: 180 1RF triamterene-hydrochlorothiazid 37.5-25 mg tablet 1 tab PO DAILY Qty: 90 1RF acetaminophen [Tylenol Extra Strength] 500 mg tablet 500 mg PO Q6H PRN (Reason: fever or pain) Qty: 14 0RF lidocaine [Lidoderm] 5 % adhesive patch,medicated 1 patch topical DAILY MDD remove after 12 hours PRN (Reason: pain) Qty: 30 0RF Rx Instructions: leave on most painful area for up to 12 hrs docusate sodium [Colace] 100 mg capsule 100 mg PO BID Qty: 60 0RF lactulose 10 gram/15 mL solution 15 ml PO DAILY PRN (Reason: laxative effect) Qty: 90 0RF multivitamin Tablet 1 tab PO DAILY calcium carbonate-vitamin D3 [Calcium 600 + D(3)] 600 mg-10 mcg (400 unit) tablet 1 tab PO DAILY Trelegy Ellipta 100-62.5-25 mcg blister with device 1 ea inhalation DAILY albuterol sulfate 90 mcg/actuation HFA aerosol inhaler 2 puff inhalation Q6H PRN (Reason: wheezing) polyethylene glycol 3350 [Miralax] 17 gram/dose powder 17 g PO BID PRN acetaminophen [Tylenol] 325 mg capsule 325 mg PO QID PRN
--- NOTE | 2023-01-04 12:13 | ECG_ITS ---
Test Reason : tachy Blood Pressure : / mmHG Vent. Rate : 095 BPM Atrial Rate : 000 BPM P-R Int : 000 ms QRS Dur : 076 ms QT Int : 316 ms P-R-T Axes : 000 -29 064 degrees QTc Int : 397 ms Poor data quality Likely sinus rhythm When compared with ECG of 15-OCT-2022 22:09, Poor data quality in current ECG precludes serial comparison Referred By: Elsie Lucas Electronically Signed By:Garcia Howard
[2023-01-04 13:03] LABS: MANUAL DIFF FLAG NO
[2023-01-04 13:05] LABS: Basophils Absolute Auto 0.1 X10*3/uL (0.0-0.2); Eosinophils Absolute Auto 0.5 X10*3/uL (0.0-0.4); Eosinophils Percent Auto 7.9 % (0-4); Hematocrit 39.2 % (37.0-47.0); Hemoglobin 12.6 g/dl (12.0-16.0); Imm Gran Abs Auto 0.01 X10*3/uL (0.00-0.03); Imm Gran Pct Auto 0.1 % (0.0-0.4); Lymphocytes Absolute Auto 1.7 X10*3/uL (1.2-4.9); Lymphocytes Percent Auto 26.1 % (20-40); Mean Corpuscular HGB Conc 32.1 g/dl (31.0-35.0); Mean Corpuscular Volume 96.3 fL (80.0-98.0); Mean Platelet Volume 10.5 fL (9.4-12.3); Monocytes Absolute Auto 0.9 X10*3/uL (0.1-1.2); Monocytes Percent Auto 13.2 % (2-11); Neutrophils Absolute Auto 3.4 x10*3/uL (2.0-8.3); Neutrophils Percent Auto 51.7 % (45-73); Platelet Count 254 X10*3/uL (160-400); Red Blood Count 4.07 X10*6/uL (4.20-5.50); Red Cell Distribution Width 12.9 % (11.0-16.0); White Blood Count 6.7 X10*3/uL (4.8-10.8)
[2023-01-04 13:28] LABS: Alanine Aminotransferase 9 U/L (0-31); Albumin Level 3.7 g/dL (3.5-5.0); Alkaline Phosphatase 82 U/L (39-117); Anion Gap 13 (12-20); Aspartate Amino Transferase 23 U/L (5-31); Bilirubin Total 0.6 mg/dL (0.0-1.0); Blood Urea Nitrogen 23 mg/dL (9-16); Calcium 9.9 mg/dL (8.4-10.2); Carbon Dioxide 30 mmol/L (22-29); Chloride 107 mmol/L (96-108); Creatinine Clr Calc Pharmacy 42.2; Estimated Glomerular Filt Rate > 60; Glucose Random 129 mg/dL (60-115); Potassium 3.6 mmol/L (3.3-5.1); Sodium 146 mmol/L (135-145); Total Protein 6.4 g/dL (6.5-8.0)
[2023-01-04 13:44] LABS: Troponin-I High Sensitivity < 2.7 ng/L (<3.5-17.0)
[2023-01-04 16:53] VITALS: BP 148/84; PULSE 101; RESP 15; TEMP 36.6; O2SAT 92
[2023-01-04 18:25] VITALS: BP 166/88; PULSE 87; RESP 16; O2SAT 91
== END 2023-01-04 19:05 | disposition home or self-care (01) ==
PROVIDERS: Registered Nurse Emergency; Emergency Provider Student in an Organized Health Care Education/Training Program
DX: S39.012A Strain of muscle, fascia and tendon of lower back, initial encounter (principal); M54.6 Pain in thoracic spine; R10.2 Pelvic and perineal pain; R00.0 Tachycardia, unspecified; W01.10XA Fall on same level from slipping, tripping and stumbling with subsequent striking against unspecified object, initial encounter; Y93.9 Activity, unspecified; Y92.9 Unspecified place or not applicable; Y99.9 Unspecified external cause status; Z79.899 Other long term (current) drug therapy
CPT/HCPCS: 36415; 72072; 72100; 72170; 80053; 84484; 85025; 93005; 99283; 99284

== ENCOUNTER 2023-02-15 13:42 | Outpatient (AMB) | payer MEDICARE, OTHER, SELFPAY ==
[2023-02-15 13:44] VITALS: BP 122/80; PULSE 95; O2SAT 94; BMI 18.7
--- NOTE | 2023-02-15 13:44 | A.OFFPC_ITS ---
Vital Signs 02/15/23 13:44 Height 5 ft 4 in Weight 109 lb BMI 18.7 BP 122/80 Blood Pressure Location Lt brachial Position Sitting Pulse 95 Pulse Source Pulse Oximeter Pulse Oximetry (%) 94 Oxygen Delivery Method Room Air Intake Visit Reasons: Follow up after fall at assisted living facility Intake Note: Pt is here today for a follow up visit. Pt states that she has been having pain in her lower R leg. Allergies Seasonal Allergies Allergy (Intermediate, Verified 02/15/23 13:50) congestion oxycodone [From Percocet] Allergy (Unknown, Verified 02/15/23 13:50) unknown Medication List - Last Reconciled 02/15/23 by Lubna Carmichael MD acetaminophen (Tylenol Extra Strength) 500 mg PO Q6H PRN acetaminophen (Tylenol) 325 mg PO QID PRN albuterol sulfate 90 mcg/actuation 2 puffs inhalation Q6H PRN calcium carbonate-vitamin D3 600 mg-10 mcg (400 unit) (Calcium 600 + D(3)) 1 tab PO DAILY celecoxib 200 mg PO BID cetirizine 10 mg PO DAILY diltiazem HCl 30 mg PO BID docusate sodium (Colace) 100 mg PO BID [id number] 100-62.5-25 mcg (Trelegy Ellipta) 1 ea inhalation DAILY lactulose 15 mL PO DAILY PRN leflunomide 10 mg PO DAILY lidocaine 5% (Lidoderm) 1 patch topical DAILY PRN MDD remove after 12 hours multivitamin 1 tab PO DAILY polyethylene glycol 3350 (Miralax) 17 grams PO BID PRN triamterene-hydrochlorothiazid 37.5-25 mg 1 tab PO DAILY Tobacco use date assessed: 02/15/23 Fall risk assessment: 2 + Falls in past year Last assessed Fall Risk: 02/15/23 Dental Screening Dental Screen Date: 02/15/23 Did you have a dental visit in the last 12 months?: Yes Did you have a dental problem in the last 6 months where you did not have access to dental care?: No Was dental information given to patient?: Patient has dentist HPI Follow up after fall at assisted living facility HPI Details Pt presents for f/u ER visit after recurrent falls, tripping over. Patient complains of pain and catching in the right leg when trying to walk. Patient has been well but feels off balance. She denies any weakness in extremities. Patient reports pain in the right buttock radiating to right lower extremity. In the ER patient had a x-ray of lumbar spine and right hip consistent with advanced osteoarthritis. 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 Patient has been taking Celebrex 400 mg daily. She reports episodes of lightheadedness when standing up. Patient denies chest pain or shortness of breath. She lives in assisted living and lost 10 lb in the last 2 months. Patient has been preparing her own breakfast and lunch but usually has dinner at the dining monae. She denies change in appetite or depression. [facility] Medical History FHx: cholecystectomy Family History (Updated 02/15/23 @ 13:59 by Maria De Jesus Carlson [facility]) Mother Acute arthritis Father No problems noted. Mother Acute arthritis Social History Household Members Other:: Resident [facility] Housing: Other Housing Other:: [facility] Alcohol intake: never Patient Tobacco Use Status: Former Tobacco user e-Cigarette/Vaping Use: Never Used service: No Current occupational status: retired Current occupation: Former PT Cognitive needs: No Hearing needs: No Vision needs: Yes Review of Systems Const All systems reviewed & are unremarkable except as noted in HPI and below Reports no additional complaints Eyes Reports no additional complaints ENT Reports no additional complaints Card Reports no additional complaints Resp Reports no additional complaints GI Reports no additional complaints Physical exam (Primary Care) Vital Signs: Last Vital Signs Pulse 95 02/15/23 13:44 BP 122/80 02/15/23 13:44 Pulse Ox 94 02/15/23 13:44 Oxygen Delivery Method Room Air 02/15/23 13:44 BMI result Body Mass Index 18.7 Tobacco/Smoking Status: Tobacco use Status Tobacco use date assessed 02/15/23 02/15/23 13:55 Patient Tobacco Use Status Former Tobacco user 02/15/23 13:55 e-Cigarette/Vaping Use Never Used 02/15/23 13:55 Const General: no acute distress HENMT General nose exam: Normal external nose present Neck Neck: Yes supple Resp Effort & Inspection: normal respiratory effort Auscultation: diminished lung sounds Cardio Rhythm: regular rhythm Heart sounds: S1 normal heart sound present and S2 normal heart sound present GI Inspection: Yes normal to inspection Palpation (GI): Soft to palpation Percussion: Yes normal to percussion Auscultation: normal bowel sounds Extrem Other: DROM of R hip, SLR 30 degrees on R, 45 on L, unstable gait with a cane Assessment and Plan Assessment & Plan (1) Right hip pain: Comment: ADVANCED OA R HIP Code(s): M25.551 - Pain in right hip Plan: refer to PT (2) Osteoarthritis of lumbosacral spine: Code(s): M47.817 - Spondylosis without myelopathy or radiculopathy, lumbosacral region Plan: refer to PT (3) Hypertension: Code(s): I10 - Essential (primary) hypertension Plan: change Dyzide to Spironolactone 25 mg and cont Cardizem, f/u 1 month for labs and BP check Orders: Orders PT Evaluation and Treatment Today M25.551 - Pain in right hip, M47.817 - Spondylosis without myelopathy or radiculopathy, lumbosacral region Comprehensive Met. Panel Today I10 - Essential (primary) hypertension TSH reflex Free T4 Today I10 - Essential (primary) hypertension Complete Blood Count Auto Diff Today I10 - Essential (primary) hypertension Medications: New spironolactone 25 mg PO DAILY 30 tabs 1RF Coding Level of Care Code Est Pt Level 4 (69082) Diagnoses Right hip pain M25.551 Osteoarthritis of lumbosacral spine M47.817 Hypertension I10
== END 2023-02-15 14:33 | disposition home or self-care (01) ==
PROVIDERS: PCP Internal Medicine; Visit Provider Internal Medicine
DX: M25.551 Pain in right hip (principal); M47.817 Spondylosis without myelopathy or radiculopathy, lumbosacral region; I10 Essential (primary) hypertension
CPT/HCPCS: 99214

== ENCOUNTER 2023-03-16 10:22 | Outpatient (AMB) | payer MEDICARE, SELFPAY ==
--- NOTE | 2023-03-16 10:24 | A.OFFVIS_ITS ---
Intake Vital Signs 03/16/23 10:36 Height 5 ft 4 in Weight 110 lb 7.225 oz BMI 19.0 BP 108/70 Blood Pressure Location Lt brachial Position Sitting Pulse 106 H Pulse Source Pulse Oximeter Temp 97.2 F Temp Source Skin Pulse Oximetry (%) 93 Oxygen Delivery Method Room Air Intake Visit Reasons: ra Intake Note: Here to follow up on RA. c/o right upper contreras (below knee) pain radiating up to right hip x few months Hospice Care Transitions Coordinator Required: No Accompanied by: Son Allergies Seasonal Allergies Allergy (Intermediate, Verified 03/16/23 10:26) congestion oxycodone [From Percocet] Allergy (Unknown, Verified 03/16/23 10:26) unknown Medication List - Last Reconciled 03/16/23 by Lorenzo Galeano MD acetaminophen (Tylenol Extra Strength) 500 mg PO Q6H PRN acetaminophen (Tylenol) 325 mg PO QID PRN albuterol sulfate 90 mcg/actuation 2 puffs inhalation Q6H PRN calcium carbonate-vitamin D3 600 mg-10 mcg (400 unit) (Calcium 600 + D(3)) 1 tab PO DAILY celecoxib 200 mg PO BID cetirizine 10 mg PO DAILY diltiazem HCl 30 mg PO BID docusate sodium (Colace) 100 mg PO BID mcqddlzvqyu-uvabhgkii-thykvenx 100-62.5-25 mcg (Trelegy Ellipta) 1 ea inhalation DAILY lactulose 15 mL PO DAILY PRN leflunomide 10 mg PO DAILY lidocaine 5% (Lidoderm) 1 patch topical DAILY PRN MDD remove after 12 hours multivitamin 1 tab PO DAILY polyethylene glycol 3350 (Miralax) 17 grams PO BID PRN spironolactone 25 mg PO DAILY triamterene-hydrochlorothiazid 37.5-25 mg 1 tab PO DAILY HPI HPI Comments History of Present Illness Details The patient returns today for evaluation of her rheumatoid arthritis and osteoarthritis. One of her sons accompanies her. She reports that most of the summer she did okay but in the last month or so she has been having more right leg pain. This seems to be from the groin distally to just past the knee. It does not seem to bother her at rest but when she tries to get out of a chair or walks there is more pain. She does usually walk with a walker at the assisted living center where she lives. She comes in today just with a cane. She remains on leflunomide 10 mg daily without any apparent side effects. Other joints really have not been a problem for her. She does take Celebrex 200 mg twice a day as well as occasional extra-strength Tylenol. She was well enough to visit [place] during the summer for a family event. Her breathing seems stable without any coughing or excessive shortness of breath. She did have a fall during the summer. That event was followed by more of this hip and leg pain. [facility] Medical History FHx: cholecystectomy Family History Mother Acute arthritis Father No problems noted. Mother Acute arthritis Social History (Updated 03/16/23 @ 10:38 by TEGAN Pimentel) Household Members Other:: Resident [facility] Housing: Other Housing Other:: [facility] Alcohol intake: current Alcohol intake frequency: holidays/special occasions only Alcohol type: wine Patient Tobacco Use Status: Former Tobacco user e-Cigarette/Vaping Use: Never Used service: No Current occupational status: retired Current occupation: Former PT Cognitive needs: No Hearing needs: No Vision needs: Yes Review of Systems Const Details: Negative for appetite change, weight change, fever, chills, malaise and fatigue Eyes Details: Negative for vision change, dry eyes,headaches and dizziness Card Details: Negative chest pain, edema and syncope Resp Details: Negative for SOB, cough and wheezing GI Details: Negative indigestion/heartburn, nausea, abdominal pain, bowel changes, diarrhea, constipation and bloody stool. Neuro Details: Negative for epilepsy, palsy, stroke, changes in speech, tingling and weakness Bandar/Lymph Details: Negative for excessive bruising or bleeding. Physical Exam Vital Signs: Last Vital Signs Temp 97.2 F 03/16/23 10:36 Pulse 106 H 03/16/23 10:36 BP 108/70 03/16/23 10:36 Pulse Ox 93 03/16/23 10:36 Oxygen Delivery Method Room Air 03/16/23 10:36 BMI result Body Mass Index 19.0 APPEARANCE: Patient in no acute distress EYES no redness, pupils equal and reactive to light, eyelids normal EARS:? Decreased hearing in both ears.? External ear normal, canal clear and tympanic membrane normal. NOSE/SINUS:? Airflow through both nares, no nasal discharge, no bleeding THROAT:? Oral mucosa moist, no ulcerations NECK:? No thyromegaly or masses, no adenopathy, trachea midline. HEART:? Regulrar rhythm, S1-S2 heard, no murmurs, rubs or gallops. LUNG:? Clear to percussion and auscultation ABD:? Normal bowel sounds, no organomegaly, masses or tenderness. EXTREMITIES:? No edema, no calf tenderness, normal peripheral pulses. JOINT EXAM:.?? Cervical Spine:.? Full range of motion without pain; no tenderness. Thoracic Spine:.? No scoliosis.? Some kyphosis.? No tenderness on palpation. Lumbar Spine:.? Alignment normal.? Mild pain with flexion of 60 degrees?or with attempts at hyperextension.? No tenderness. Chest Wall:.? No tenderness, swelling, increased warmth or erythema. Hands:? Right:? There is boggy swelling in all the MCP joints with some mild ulnar deviation and flexion contracture.? The 4th finger catches and subluxes at the MCP joint with flexion and extension.? There is no tenderness in the MCP joints today.? She has mild bony enlargement with tenderness at the base of the thumb.? The thumb MCP has some degree of ligamentous laxity.? There is some thickening in the 2nd through 4th PIP joints without tenderness.? She has mild bony enlargement and lateral deviation at the 2nd and 3rd PIP joints.? These are not tender.? Left:? Mild bony enlargement at the base of the thumb without tenderness.? The thumb MCP has some laxity, slight hyperextension, and minimal tenderness.? The other MCPs are slightly swollen without tenderness but over the 5th MCP is a cystic structure that is about a 8 mm in diameter.? It is not tender or warm.? There is no epidermal change on the lump.? It looks like a synovial cyst.? The PIP's have no swelling or tenderness.? There is mild bony enlargement and tenderness at the 2nd 3rd DIP joints.? She has some thenar atrophy but no sensory loss.. Wrists:? Right: Slight swelling and minimal tenderness.? No discomfort with flexion extension at 75 degrees.? Left:? Slight discomfort at 80 degrees flexion extension without tenderness, swelling, increased warmth or erythema. Elbows:. Normal pain-free range of motion without tenderness, swelling, inc reased warmth or erythema. Shoulders:? Right: slight pain with extremes of normal range of motion.? No swelling or tenderness.? No abductor weakness or adenopathy.? Left:? Normal pain-free range of motion.? No tenderness, abductor weakness or adenopathy.? Hips:? Right:? Mild to moderate pain with flexion beyond 90 degrees, any attempted internal rotation, or external rotation beyond 10 degrees. There is no inguinal tenderness or mass..? Left:? Full range of motion with slight lateral hip and lumbar pain with extremes of rotation. No groin pain with motion. Hip bursa: Mild bilateral trochanteric the tenderness. Knees:? Right: Mild patellofemoral crepitus and mild pain with more than 60 deg jose manuel flexion or extension.? There is mild medial and moderate lateral tenderness without effusion, redness or warmth.? No popliteal tenderness or swelling.? Left:? Full range of motion without tenderness, swelling or pain.? There is mild crepitus. Ankles:?Normal pain-free range of motion without tenderness, swelling, increased warmth or erythema. Results Reviewed Results Reviewed: Laboratory Tests 11/18/22 11/18/22 01/04/23 11:16 11:16 12:52 WBC 6.7 Hgb 12.6 ESR 28 H Creatinine AST ALT C-Reactive Protein 0.48 01/04/23 12:52 WBC Hgb ESR Creatinine 0.81 AST 23 ALT 9 C-Reactive Protein [place] [id number] XRay Report Signed Patient: Heidy Munoz MR#: [id number] : 1935 Acct:[id number] Age/Sex: 87 / F ADM Date: 01/04/23 Ordering Physician: Ryan Bermudez Date of Service: 01/04/23 Procedure(s): XR pelvis 1-2V Accession Number(s): [id number] cc: Ryan Bermudez ~ EXAMINATION: XR PELVIS CLINICAL INFORMATION: Pain? COMPARISON: 10/13/2022? TECHNIQUE: AP view of the pelvis. FINDINGS: Extensive degenerative changes seen within the right greater than left hips. There is flattening of the right femoral head with associated subchondral sclerosis and cystic changes as well as corresponding sclerotic degenerative changes along the weightbearing portion of the acetabulum. There is prominent marginal osteophytosis in the right hip as well consistent with chronicity. Overall the appearance is similar to the 10/13/2022 CT scan. Degenerative changes in the visualized lower lumbar spine? XR/XR pelvis 1-2V IMPRESSION: Extensive degenerative changes in the right greater than left hips. There is mild flattening of the right femoral head which is chronic in nature. ? Dictated By: Robert Olsen MD [address] [address] XRay Report Signed Patient: Heidy Munoz MR#: [id number] : 1935 Acct:[id number] Age/Sex: 87 / F ADM Date: 01/04/23 Ordering Physician: Elsie Lucas NP Date of Service: 01/04/23 Procedure(s): XR lumbar spine 2-3V Accession Number(s): [id number] cc: Elsie Lucas NP~ Indication: Pain EXAMINATION: Lumbar sacral spine and thoracic spine. Comparison is made to sagittal imaging from CT of 10/13/2022. 3 views of the lumbar sacral spine show significant degenerative change but no evidence of acute compression injury or listhesis. Kyphosis created at L1-2. Significant loss of disc height with spurring. Scoliosis convex left apex at L3. The thoracic spine again show moderate degenerative changes. No convincing evidence for an acute compression injury. Scoliosis convex right apex at T9. XR/XR lumbar spine 2-3V IMPRESSION: Significant degenerative change in the lumbar spine with scoliosis. Moderate degeneration in the thoracic spine. No convincing evidence for an acute finding. Dictated By: Danny Robles MD Signed By: <Electronically signed by Danny Robles MD i Assessment & Plan Assessment & Plan (1) Osteoarthritis of lumbosacral spine: Code(s): M47.817 - Spondylosis without myelopathy or radiculopathy, lumbosacral region (2) Osteoarthritis of right knee: Code(s): M17.11 - Unilateral primary osteoarthritis, right knee (3) Osteoarthritis of hips, bilateral: Comment: 12/2022 Severe on right Code(s): M16.0 - Bilateral primary osteoarthritis of hip (4) buttermaker use of drug: Code(s): Z79.899 - Other group home (current) drug therapy (5) Seropositive rheumatoid arthritis: Comment: Methotrexate in 1999 - stopped 03/22/08 due to infiltrates, Leflunomide since 05/18 Code(s): M05.9 - Rheumatoid arthritis with rheumatoid factor, unspecified Plan Rheumatoid arthritis with some destructive and deforming changes in the hands but overall I think reasonable control of synovitis with current treatment. Unfortunately she has had some progression of symptoms in the right hip where she has osteoarthritis. This is causing some hip pain laterally, anteriorly, that radiates down to the knee. There is of course some OA in the right knee as well as the lumbar spine. I think for the most part she is symptomatic with the leg pain because of the hip OA. We will check blood work to make sure she is okay to continue with the Celebrex and leflunomide. I would agree with a course of physical therapy to see if that can improve her pain and functioning. If not, she would have to consider the option of a total hip replacement on the right. At her age of course she might have increased risks but other than her mild lung disease she seems fairly stable. I will schedule her back in about 3 months. Coding Level of Care Code Est Pt Level 3 (22618) Diagnoses Osteoarthritis of lumbosacral spine M47.817 Osteoarthritis of right knee M17.11 Osteoarthritis of hips, bilateral M16.0 halfway use of drug Z79.899 Seropositive rheumatoid arthritis M05.9
[2023-03-16 10:36] VITALS: BP 108/70; PULSE 106; TEMP 36.2; O2SAT 93; BMI 19.0
== END 2023-03-16 11:13 | disposition home or self-care (01) ==
PROVIDERS: PCP Internal Medicine; Visit Provider Internal Medicine Rheumatology
DX: M05.79 Rheumatoid arthritis with rheumatoid factor of multiple sites without organ or systems involvement (principal); M47.817 Spondylosis without myelopathy or radiculopathy, lumbosacral region; M17.11 Unilateral primary osteoarthritis, right knee; M16.0 Bilateral primary osteoarthritis of hip; Z79.899 Other long term (current) drug therapy
CPT/HCPCS: 99213

== ENCOUNTER → 2023-03-16 10:22 | Outpatient (BNVA) | payer MEDICARE, SELFPAY | PROVIDERS: PCP Internal Medicine; Visit Provider Internal Medicine Rheumatology | DX: M47.817 Spondylosis without myelopathy or radiculopathy, lumbosacral region (principal); M17.11 Unilateral primary osteoarthritis, right knee; M16.0 Bilateral primary osteoarthritis of hip; M05.9 Rheumatoid arthritis with rheumatoid factor, unspecified; Z79.899 Other long term (current) drug therapy | CPT/HCPCS: 36415; 82565; 84450; 84460; 85025; 85652; 86140; 99212 ==

== ENCOUNTER 2023-03-29 11:00 | Outpatient (RCR) | payer MEDICARE, SELFPAY ==
--- NOTE | 2023-03-11 11:12 | MHC.PT.EP ---
[facility] [place] Office [place] Office [place] Office [address] [phone] F: [phone] F: [phone] F: [phone] F: [phone] Physical Therapy Plan of Care Date of Evaluation: Date of Surgery: Diagnosis: Pain in R hip, LBP Assessment: Pt is a 88 y/o F who is referred to PT for eval and treat of R hip pain and LBP who presents with LBP, R knee pain, R LE weakness resulting in decreased tolerance for ambulating prolonged distances, standing for duration, managing personal care activities, and lifting objects of weight secondary to decreased LE strength, impaired balance, and pain. Pt is motivated and is deemed an appropriate candidate to receive skinned PT services to address her physical impairments in order to improve her function. Frequency and Duration: The patient will be seen 2x/wk x4wks Short Term Goals: Initiate HEP Molder Goals: [place] with HEP Improve knee extension strength by at least 1/2 MMT; initial: R 4-/5, L 4/5 Pt will be able to stand for more than 10 min without pain; initial: pain prevents patient from standing more than 10 min. Pt will perform TUG in <12s to improve fall risk. Treatment Plan: Modalities to reduce pain, spasms and effusion. Manual therapy to restore motion and function. Therapeutic exercise to improve strength and flexibility. Neuromuscular re-education for posture and balance. Therapeutic activities to return to functional activities of daily living. Electronically signed by: Haroldo Camarena PT Please sign and return to therapist. Thank you for your referral.
--- NOTE | 2023-04-11 08:06 | MHC.PT.DC ---
[facility] [place] Office [place] Office [place] Office [address] [phone] F: [phone] F: [phone] F: [phone] F: [phone] Physical Therapy Discharge Report Diagnosis: Pain in R hip, LBP Date of Surgery: Date of Evaluation: 03/11/23 Date of Discharge: 04/11/23 Treatments to Date: 4 Cancellations to Date: 3 No Shows to Date: 3 Discharge Status: Patient Elected to Stop Recommend MD Follow-up Discharge Summary: Heidy is being DC per attendance policy. Therapy office notified that she will be following up with ortho. Electronically signed by: Haroldo Camarena PT Please sign and return to therapist. Thank you for your referral.
== END 2023-04-11 08:06 | disposition home or self-care (01) ==
LOC: HO.PTCHIC 11:00
PROVIDERS: PCP Internal Medicine; Visit Provider Internal Medicine
DX: M25.551 Pain in right hip (principal); M47.817 Spondylosis without myelopathy or radiculopathy, lumbosacral region
CPT/HCPCS: 97110; 97161; 97530

== ENCOUNTER 2023-04-01 10:12 | Outpatient (AMB) | payer MEDICARE, SELFPAY ==
[2023-04-01 10:14] VITALS: BP 102/65; PULSE 90; O2SAT 97; BMI 19.2
--- NOTE | 2023-04-01 10:14 | A.OFFPC_ITS ---
Vital Signs 04/01/23 10:14 Height 5 ft 4 in Weight 112 lb BMI 19.2 BP 102/65 Blood Pressure Location Rt brachial Position Sitting Pulse 90 Pulse Source Pulse Oximeter Pulse Oximetry (%) 97 Oxygen Delivery Method Room Air Intake Visit Reasons: 1 month f/u Intake Note: Pt is here today for 1 month follow up visit. Allergies Seasonal Allergies Allergy (Intermediate, Verified 04/01/23 10:17) congestion oxycodone [From Percocet] Allergy (Unknown, Verified 04/01/23 10:17) unknown Medication List - Last Reconciled 04/01/23 by Lubna Carmichael MD acetaminophen (Tylenol Extra Strength) 500 mg PO Q6H PRN acetaminophen (Tylenol) 325 mg PO QID PRN albuterol sulfate 90 mcg/actuation 2 puffs inhalation Q6H PRN calcium carbonate-vitamin D3 600 mg-10 mcg (400 unit) (Calcium 600 + D(3)) 1 tab PO DAILY celecoxib 200 mg PO BID cetirizine 10 mg PO DAILY diltiazem HCl 30 mg PO BID docusate sodium (Colace) 100 mg PO BID dzoddjyiixb-dgpxalbnr-grtgmoih 100-62.5-25 mcg (Trelegy Ellipta) 1 ea inhalation DAILY lactulose 15 mL PO DAILY PRN leflunomide 10 mg PO DAILY lidocaine 5% (Lidoderm) 1 patch topical DAILY PRN MDD remove after 12 hours multivitamin 1 tab PO DAILY polyethylene glycol 3350 (Miralax) 17 grams PO BID PRN spironolactone 25 mg PO DAILY triamterene-hydrochlorothiazid 37.5-25 mg 1 tab PO DAILY Tobacco use date assessed: 02/15/23 HPI 1 month f/u HPI Details Patient presents for the follow-up on hypertension. Patient blood pressure is low but she denies lightheadedness or dizziness. She has been ambulating with a cane and getting exercises at assisted living facility. COPD is stable on Trelegy. Patient complains of chronic right leg pain and x-ray is consistent with advanced osteoarthritis of right hip. She follows up with residential assistant for rheumatoid arthritis who is retiring. PFSH Medical History FHx: cholecystectomy Family History Mother Acute arthritis Father No problems noted. Mother Acute arthritis Social History (Updated 03/16/23 @ 10:38 by TEGAN Pimentel) Household Members Other:: Resident [facility] Housing: Other Housing Other:: [facility] Alcohol intake: current Alcohol intake frequency: holidays/special occasions only Alcohol type: wine Patient Tobacco Use Status: Former Tobacco user e-Cigarette/Vaping Use: Never Used service: No Current occupational status: retired Current occupation: Former PT Cognitive needs: No Hearing needs: No Vision needs: Yes Review of Systems Const All systems reviewed & are unremarkable except as noted in HPI and below Reports no additional complaints Eyes Reports no additional complaints ENT Reports no additional complaints Card Reports no additional complaints Resp Reports no additional complaints GI Reports no additional complaints Reports no additional complaints Physical exam (Primary Care) Vital Signs: Last Vital Signs Pulse 115 H 04/01/23 10:14 BP 94/60 04/01/23 10:14 Pulse Ox 97 04/01/23 10:14 Oxygen Delivery Method Room Air 04/01/23 10:14 BMI result Body Mass Index 19.2 Tobacco/Smoking Status: Tobacco use Status Tobacco use date assessed 02/15/23 04/01/23 10:20 Patient Tobacco Use Status Former Tobacco user 04/01/23 10:20 e-Cigarette/Vaping Use Never Used 04/01/23 10:20 Const General: no acute distress HENMT Face and sinus: Yes normal facial exam Throat: Yes posterior oropharynx normal Resp Effort & Inspection: normal respiratory effort Auscultation: diminished lung sounds Cardio Rhythm: regular rhythm Heart sounds: S1 normal heart sound present and S2 normal heart sound present GI Inspection: Yes normal to inspection Palpation (GI): Soft to palpation Extrem General: Yes no clubbing, cyanosis or edema Assessment and Plan Assessment & Plan (1) Hypertension: Code(s): I10 - Essential (primary) hypertension Plan: d/c Spironolactone, cont Cardizem and check Echo (2) COPD (chronic obstructive pulmonary disease): Comment: Follows up with pulmonology Code(s): J44.9 - Chronic obstructive pulmonary disease, unspecified Plan: cont Trelegy (3) Osteoarthritis of hips, bilateral: Comment: 12/2022 Severe on right Code(s): M16.0 - Bilateral primary osteoarthritis of hip Plan: refer to ortho Orders: Orders Basic Metabolic Panel Today I10 - Essential (primary) hypertension, J44.9 - Chronic obstructive pulmonary disease, unspecified CA echo transthoracic complete Today I10 - Essential (primary) hypertension, J44.9 - Chronic obstructive pulmonary disease, unspecified Referrals Orthopedics Referral M16.0 - Bilateral primary osteoarthritis of hip Pulmonology Referral J44.9 - Chronic obstructive pulmonary disease, unspecified Medications: Discontinued triamterene-hydrochlorothiazid 37.5-25 mg Discontinued Reason: Doctor's Order 1 tab PO DAILY 90 tabs 1RF spironolactone Discontinued Reason: Doctor's Order 25 mg PO DAILY 30 tabs 1RF Coding Level of Care Code Est Pt Level 4 (00960) Diagnoses Hypertension I10 COPD (chronic obstructive pulmonary disease) J44.9 Osteoarthritis of hips, bilateral M16.0
== END 2023-04-01 11:04 | disposition home or self-care (01) ==
PROVIDERS: PCP Internal Medicine; Visit Provider Internal Medicine
DX: I10 Essential (primary) hypertension (principal); J44.9 Chronic obstructive pulmonary disease, unspecified; M16.0 Bilateral primary osteoarthritis of hip
CPT/HCPCS: 99214

== ENCOUNTER 2023-04-01 10:54 | Outpatient (REF) | payer MEDICARE, SELFPAY ==
[2023-04-01 13:11] LABS: MANUAL DIFF FLAG NO
[2023-04-01 13:33] LABS: Basophils Absolute Auto 0.1 X10*3/uL (0.0-0.2); Basophils Percent Auto 0.8 % (0-2); Eosinophils Absolute Auto 0.4 X10*3/uL (0.0-0.4); Eosinophils Percent Auto 3.6 % (0-4); Hematocrit 41.2 % (37.0-47.0); Imm Gran Abs Auto 0.05 X10*3/uL (0.00-0.03); Imm Gran Pct Auto 0.5 % (0.0-0.4); Lymphocytes Absolute Auto 1.2 X10*3/uL (1.2-4.9); Lymphocytes Percent Auto 10.7 % (20-40); Mean Corpuscular HGB Conc 31.6 g/dl (31.0-35.0); Mean Corpuscular Hemoglobin 31.5 pg (27.0-33.0); Mean Corpuscular Volume 99.8 fL (80.0-98.0); Mean Platelet Volume 11.7 fL (9.4-12.3); Monocytes Absolute Auto 1.3 X10*3/uL (0.1-1.2); Monocytes Percent Auto 11.5 % (2-11); Neutrophils Absolute Auto 8.1 x10*3/uL (2.0-8.3); Neutrophils Percent Auto 72.9 % (45-73); Platelet Count 272 X10*3/uL (160-400); Red Blood Count 4.13 X10*6/uL (4.20-5.50); Red Cell Distribution Width 13.3 % (11.0-16.0); White Blood Count 11.1 X10*3/uL (4.8-10.8)
[2023-04-01 14:16] LABS: Erythrocyte Sedimentation Rate 25 MM/HR (0-20)
[2023-04-01 14:18] LABS: Alanine Aminotransferase 7 U/L (0-31); Anion Gap 14 (12-20); Aspartate Amino Transferase 16 U/L (5-31); Blood Urea Nitrogen 34 mg/dL (9-16); C Reactive Protein 0.37 mg/dL (< or = 0.50); Calcium 9.2 mg/dL (8.4-10.2); Carbon Dioxide 26 mmol/L (22-29); Chloride 107 mmol/L (96-108); Estimated Glomerular Filt Rate 58; Glucose Random 93 mg/dL (60-115); Potassium 4.3 mmol/L (3.3-5.1); Sodium 143 mmol/L (135-145)
== END 2023-04-01 10:55 | disposition home or self-care (01) ==
LOC: HO.HMGCLDS 10:54
PROVIDERS: Internal Medicine Rheumatology; PCP Internal Medicine; Visit Provider Internal Medicine
DX: I10 Essential (primary) hypertension (principal); J44.9 Chronic obstructive pulmonary disease, unspecified; M05.9 Rheumatoid arthritis with rheumatoid factor, unspecified; Z79.899 Other long term (current) drug therapy
CPT/HCPCS: 36415; 80048; 84450; 84460; 85025; 85652; 86140

== ENCOUNTER 2023-04-21 10:05 | Outpatient (AMB) | payer MEDICARE, SELFPAY ==
--- NOTE | 2023-04-21 10:11 | MHC.OFFVIS ---
Intake Vital Signs 04/21/23 10:17 Height 5 ft 4 in Weight 112 lb BMI 19.2 Intake Visit Reasons: New Pt - Bilateral Hip Pain - XR @ [facility] [place], [place] Intake Note: Heidy is an 88 year old female who presents today with her son as a new patient with multiple joint complaints. Hx of Rheumatoid Arthritis. Her primary concerns are the right knee & Hip as well as spine. She has taken some falls and done PT to increase her strength. Hx of cortisone and gel injections in the right knee that were done - these provided mild relief but her symptoms have returned . She has not yet seen anyone for treatment of her back S Allergies Seasonal Allergies Allergy (Intermediate, Verified 04/01/23 10:17) congestion oxycodone [From Percocet] Allergy (Unknown, Verified 04/01/23 10:17) unknown HPI New Pt - Bilateral Hip Pain - XR @ [facility] [place] [place] HPI Details Heidy is an 88 year old woman who presents with complaints of bilateral hip OA pain, R>L. She complains of pain with daily activity, worse with standing from a seated position or prolonged walking. She localizes the pain to her groin and says she is limited in her ability to walk long distances or perform daily activities. She has done some PT in the past but denies any prior hip injections. She is hesitant to discuss surgical intervention at her age and would like to know what else can be done . She reports having right knee OA, and has found mild relief from both steroid & gel injections in the past, but says her knee is feeling painful again. She also complains of some LBP and denies seeing anyone for this. She has lumbar spine OA, has a hx of RA and follows with Rheumatology. She reports a hx of falls. She uses a walker and cane and currently resides in assisted living. [facility] Medical History FHx: cholecystectomy Family History Mother Acute arthritis Father No problems noted. Mother Acute arthritis Social History (Updated 03/16/23 @ 10:38 by TEGAN Pimentel) Household Members Other:: Resident [facility] Housing: Other Housing Other:: [facility] Alcohol intake: current Alcohol intake frequency: holidays/special occasions only Alcohol type: wine Patient Tobacco Use Status: Former Tobacco user e-Cigarette/Vaping Use: Never Used service: No Current occupational status: retired Current occupation: Former PT Cognitive needs: No Hearing needs: No Vision needs: Yes Review of Systems Const All systems reviewed & are unremarkable except as noted in HPI and below Physical Exam Vital Signs: BMI result Body Mass Index 19.2 Const General: no acute distress, alert and awake Orientation/consciousness: patient oriented x3 HEENT Head: Yes normocephalic and Yes atraumatic Eyes EOM: EOMs intact bilaterally Resp Effort & Inspection: normal respiratory effort and able to speak in complete sentences Cardio Jugular venous distension: no JVD Skin General skin exam: turgor normal Rashes: no rashes Neuro General: patient oriented x3 Extrem Other: Right Hip: + impingement Psych Appearance: grossly normal Affect: normal affect Attitude: cooperative Results Reviewed Results Reviewed: I personally reviewed relevant radiographs. Extensive degenerative changes in the right greater than left hips. There is mild flattening of the right femoral head which is chronic in nature. Significant degenerative change in the lumbar spine with scoliosis. Moderate degeneration in the thoracic spine. No convincing evidence for an acute finding. Assessment & Plan Assessment & Plan (1) Osteoarthritis of right hip: Code(s): M16.11 - Unilateral primary osteoarthritis, right hip Plan: This is an 88 year old woman with severe right hip OA. She has pain with daily activity, worse when standing from a seated position or prolonged ambulation. She has done PT in the past, with some relief, and has a hx of falls. She ambulates with an assistive cane & walker. She feels limited in her ADLs and that her QOL is diminished. I discussed her diagnosis and treatment options. She seems hesitant to consider surgery at this time. I ordered a right hip injection under Fluoroscopy, and discussed the importance of remaining active as tolerated. She will follow up after her injection. (2) Seropositive rheumatoid arthritis: Comment: Methotrexate in 1999 - stopped 03/22/08 due to infiltrates, Leflunomide since 05/18 Code(s): M05.9 - Rheumatoid arthritis with rheumatoid factor, unspecified (3) Osteoarthritis of lumbosacral spine: Code(s): M47.817 - Spondylosis without myelopathy or radiculopathy, lumbosacral region Plan Scribed for Diego Ivan, MD by Lenin Copeland, medical office secretary, on 04/21/23 at 10:30 AM, EST. Orders: Referrals Pain Management Referral M16.11 - Unilateral primary osteoarthritis, right hip Coding Level of Care Code New Pt Level 4 (95853) Diagnoses Osteoarthritis of right hip M16.11 Seropositive rheumatoid arthritis M05.9 Osteoarthritis of lumbosacral spine M47.817
[2023-04-21 10:17] VITALS: BMI 19.2
== END 2023-04-21 10:39 | disposition home or self-care (01) ==
PROVIDERS: PCP Internal Medicine; Visit Provider Orthopaedic Surgery
DX: M16.11 Unilateral primary osteoarthritis, right hip (principal); M47.817 Spondylosis without myelopathy or radiculopathy, lumbosacral region
CPT/HCPCS: 99204

== ENCOUNTER → 2023-04-21 10:05 | Outpatient (BNVA) | payer MEDICARE, SELFPAY | PROVIDERS: PCP Internal Medicine; Visit Provider Orthopaedic Surgery ==

== ENCOUNTER → 2023-05-06 12:58 | Outpatient (REF) | payer MEDICARE, OTHER, SELFPAY ==
--- NOTE | 2023-05-06 13:00 | CA_ITS ---
Transthoracic Echocardiogram Patient (Last, First, Middle): Heidy Munoz, Gender: Female Date of : 1935 Age: 88 Procedure Date: 05/06/2023 Procedure Type: Transthoracic Echocardiogram Location: OP Height: 154.94 cm Weight: 52.16 kg BSA: 1.49 m2 Heart Rate: bpm BP: 116 / 56 mmHg Program/Music Director: Referring MD: Lubna Carmichael MD Instant Potato Processor: Alexsander Isaacs MD Symptoms: J44.9 - Chronic obstructive pulmonary disease, unspecified Study Quality: Adequate ECG Rhythm: Sinus Conclusions: - 1. [id number] LV systolic dysfunction with LVEF of 40-45% with impaired relaxation filling pattern 2. Early mild aortic stenosis 3. Mildly dilated ascending aorta at 3.7 cm 4. Normal RV systolic pressure 5. No gross pericardial effusion Findings Left Ventricle Normal left ventricular cavity size. There is normal left ventricular wall thickness. The left ventricular systolic function is mild to moderately decreased. The visually estimated ejection fraction is between 40-45%. Spectral Doppler is indicative of an impaired relaxation filling pattern. E/E prime ratio is between 8 and 15 consistent with indeterminate filling pressures. Right Ventricle Normal right ventricular cavity size and systolic function. Atria The left atrium is normal in size. There is lipomatous hypertrophy of the interatrial septum. Interatrial shunt cannot be excluded. The right atrium is normal in size. Aortic Valve There is mild calcification of the aortic valve. There is mild thickening of the aortic valve. There is no aortic valve regurgitation. Mitral Valve There is mild anterior and moderate posterior mitral leaflet thickening. There is mild mitral annular calcification. There is trace mitral valve regurgitation. There is no mitral valve stenosis. Pulmonic Valve The pulmonic valve was not well visualized. Tricuspid Valve Likely normal tricuspid valve structure and function. There is trace tricuspid valve regurgitation. The right ventricular systolic pressure is normal. The right ventricular systolic pressure is 23 mmHg. Normal right atrial pressure. There is no evidence of pulmonary hypertension. Great Vessels The pulmonary artery was not well visualized. There is mild dilatation of the ascending aorta. Venous The inferior vena cava is normal in size and collapses greater than 50% with inspiration. Pericardium/Pleural There is no evidence of pericardial effusion. Prior Study Comparison No prior study available for comparison. Measurements 2D Linear Measurements IVSd: 0.99 0.6-0.9/0.6-1.0 cm LVIDd: 3.65 3.9-5.3/4.2-5.9 cm LVIDd Index: 2.45 2.4-3.2/2.2-3.1 cm/m2 LVIDs: 2.64 2.0-3.6 cm LVPWd: 1.04 0.7-1.1 cm Ao Root: 3.20 2.1-3.5 cm LA Diam: 2.60 2.7-3.8/3.0-4.0 cm LAIDs Index: 1.74 1.5-2.3 cm/m2 LV Mass: 139.51 67-162/88-224 g LV Mass Index: 93.63 43-95/49-115 g/m2 LVOT Diam: 2.10 3.0+(-)1.3 cm 2D Systolic Function EF 4C: 35.90 >55% EF 2C: 45.00 >55% EF BiP: 40.30 >55% Mitral Valve MV Pk E: 0.51 MV PK A: 1.03 MV Decel Time: 150.00 E/A: 0.50 E'Lateral: 4.35 E'Medial: 3.26 E/E' Med: 15.80 E/E' Lat: 11.80 PHT: 44.00 MVA PHT: 5.00 Decel [place]: 3.42 Aortic Valve AoV Pk Blaine: 1.66 AoV Mn Blaine: 1.08 AoV VTI: 0.36 AoV Pk Grad: 11.00 Aov Mn Grad: 5.00 TODD Cont.VTI: 1.56 LVOT LVOT Pk [place]aine: 0.88 LVOT Mn [place]aine: 0.55 LVOT VTI: 0.16 LVOT Pk Grad: 3.00 LVOT Mn Grad: 1.00 LVOT Diam: 2.10 LVOT Area: 3.46 Diastolic Function MV Pk E: 0.51 MV Pk A: 1.03 E/A: 0.50 E'Medial: 3.26 E/E' Med: 15.80 E' Laterial: 4.35 E/E' Lat: 11.80 Right Ventricle TAPSE (mm): 20.00 TVS' Blaine: 15.00 Tricuspid Valve TR Pk Blaine: 2.24 TR Pk Grad: 20.00 RA Press: 3.00 RVSP: 23.00 Great Vessels Aorta Ao Root-2D: 3.20 2.0-3.7 cm Ao Asc: 3.70 2.1-3.4 cm Pulmonary Valve PV Pk Blaine: 0.90 Peak PV Grad: 3.00 Updated in Other Vendor System with Status of Final Alexsander Isaacs MD electronically signed on 05/07/2023 11:08:17 AM with status of Final
== END ==
LOC: HO.CARD 12:58
PROVIDERS: PCP Internal Medicine; Visit Provider Internal Medicine
DX: J44.9 Chronic obstructive pulmonary disease, unspecified (principal); I10 Essential (primary) hypertension
CPT/HCPCS: 93306

== ENCOUNTER → 2023-05-06 13:00 | Outpatient (BNV) | payer MEDICARE, OTHER, SELFPAY | PROVIDERS: PCP Internal Medicine; Visit Provider Internal Medicine Cardiovascular Disease | DX: I34.81 Nonrheumatic mitral (valve) annulus calcification (principal); I35.0 Nonrheumatic aortic (valve) stenosis | CPT/HCPCS: 93306 ==

== ENCOUNTER 2023-05-10 10:51 | Outpatient (AMB) | payer MEDICARE, OTHER, SELFPAY ==
--- NOTE | 2023-05-10 11:23 | A.OFFVIS_ITS ---
Intake Vital Signs 05/10/23 12:03 05/10/23 12:04 BP 132/74 140/88 H Blood Pressure Location Rt brachial Position Sitting Respiration 12 12 Pulse 114 H 109 H Pulse Source Pulse Oximeter Pulse Oximeter Pulse Oximetry (%) 94 91 L Oxygen Delivery Method Room Air Room Air Intake Visit Reasons: R HIP STEROID INJ/Ivan referal Allergies Seasonal Allergies Allergy (Intermediate, Verified 04/01/23 10:17) congestion oxycodone [From Percocet] Allergy (Unknown, Verified 04/01/23 10:17) unknown [facility] Medical History FHx: cholecystectomy Family History Mother Acute arthritis Father No problems noted. Mother Acute arthritis Social History (Updated 03/16/23 @ 10:38 by TEGAN Pimentel) Household Members Other:: Resident [place] House Housing: Other Housing Other:: [facility] Alcohol intake: current Alcohol intake frequency: holidays/special occasions only Alcohol type: wine Patient Tobacco Use Status: Former Tobacco user e-Cigarette/Vaping Use: Never Used service: No Current occupational status: retired Current occupation: Former PT Cognitive needs: No Hearing needs: No Vision needs: Yes Physical Exam Vital Signs: Last Vital Signs Pulse 109 H 05/10/23 12:04 Resp 12 05/10/23 12:04 BP 140/88 H 05/10/23 12:04 Pulse Ox 91 L 05/10/23 12:04 Oxygen Delivery Method Room Air 05/10/23 12:04 Assessment & Plan Assessment & Plan (1) Osteoarthritis of right hip: Code(s): M16.11 - Unilateral primary osteoarthritis, right hip Plan: This is an 88 year old woman with severe right hip OA. She has pain with daily activity, worse when standing from a seated position or prolonged ambulation. She has done PT in the past, with some relief, and has a hx of falls. She ambulates with an assistive cane & walker. She feels limited in her ADLs and that her QOL is diminished. I discussed her diagnosis and treatment options. She seems hesitant to consider surgery at this time. I ordered a right hip injection under Fluoroscopy, and discussed the importance of remaining active as tolerated. She will follow up after her injection. (2) Seropositive rheumatoid arthritis: Comment: Methotrexate in 1999 - stopped 03/22/08 due to infiltrates, Leflunomide since 05/18 Code(s): M05.9 - Rheumatoid arthritis with rheumatoid factor, unspecified (3) Osteoarthritis of lumbosacral spine: Code(s): M47.817 - Spondylosis without myelopathy or radiculopathy, lumbosacral region Plan: Right hip steroid injection. Informed consent was explained to the patient. All questions were explained and answered. The patient was taken inside of the operating room where she was positioned left lateral decubitus on operating table.. Time-out was performed delineating patient's name and date of , correct site, side, the nature of the procedure, patient's allergy, preoperative antibiotic if needed, need for DVT prophylaxis.. All operating room staff was participating in OR time-out procedure. Right hip area of the patient was prepped with ChloraPrep and draped with sterile towels. C-arm was brought over the operating field and picture of left and right lateral views of the bilateral hip joints were delineated on the screen. The smaller joint silhouette was chosen as the target. Projection of the right trochanter to the skin was chosen as the initial needle insertion point. After that the skin and subcutaneous tissues was anesthetized with 2% lidocaine 2 mL. 22 gauge 5 in long needle was inserted through the skin and started to advance to the joint space under intermittent lateral and anterior posterior views. When needle entered the capsule of the joint small amount of the contrast was injected delineating intra-articular space. After that treatment solution containing 5 mls of ropivacaine 0.5% and 40 mg of Kenalog was injected into the joint. The needle was withdrawn sterile dressing was applied.The patient tolerated procedure well Plan Scribed for Diego Love MD by Lenin Copeland, medical diagnostic radiographer, on 04/21/23 at 10:30 AM, EST. Orders: Orders FL guidance in treatment room Today M16.11 - Unilateral primary osteoarthritis, right hip Coding Level of Care Code Procedure Only Diagnoses Osteoarthritis of right hip M16.11 Seropositive rheumatoid arthritis M05.9 Osteoarthritis of lumbosacral spine M47.817
[2023-05-10 12:03] VITALS: BP 132/74; PULSE 114; RESP 12; O2SAT 94
[2023-05-10 12:04] VITALS: BP 140/88; PULSE 109; RESP 12; O2SAT 91
== END 2023-05-10 12:05 | disposition home or self-care (01) ==
LOC: HO.PMCPRC 10:51
PROVIDERS: PCP Internal Medicine; Visit Provider Anesthesiology
DX: M16.11 Unilateral primary osteoarthritis, right hip (principal)
CPT/HCPCS: 20610; 77002

== ENCOUNTER 2023-05-10 18:37 | Emergency (ER) | payer MEDICARE, OTHER, SELFPAY ==
--- NOTE | ~2023-05-10 | XR_ITS ---
EXAMINATION: XR CHEST CLINICAL INFORMATION: Weakness COMPARISON: Chest radiograph 10/13/2022, CT abdomen pelvis 10/13/2022 TECHNIQUE: Frontal view of the chest was obtained. FINDINGS: Lungs are hypoinflated. Heart size is normal. There is no evidence of CHF. Some chronic interstitial markings are again seen which are better appreciated on the prior CT abdomen. Tiny pleural effusions may be present. XR/XR chest 1V IMPRESSION: No acute intrathoracic disease. Chronic interstitial lung disease.
--- NOTE | ~2023-05-10 | CT_ITS ---
EXAMINATION: CT HEAD WITHOUT CONTRAST CLINICAL INFORMATION: Weakness COMPARISON: Previous head CT October 2020 TECHNIQUE: Contiguous axial imaging was performed from the skull base to vertex without intravenous administration of contrast. This CT examination was performed using dose optimization techniques as appropriate, variously including the following: *Automated exposure control *Adjustment of mA and/or kV according to patient size (this includes techniques or standardized protocols for targeted exams where dose is matched to indication/reason for exam; i.e. extremities or head) *Use of iterative reconstruction technique DLP: 564 mGy-cm FINDINGS: There is no evidence of an extra-axial collection. There is no evidence of intra-axial or extra-axial hemorrhage. The ventricles and extra-axial CSF spaces are prominent suggestive of generalized atrophy. There is nonspecific periventricular white matter disease. No mass, mass effect or infarct. No skull fracture. Visualized paranasal sinuses mastoid air cells and middle ears are clear. CT/CT head/brain wo IV con IMPRESSION: No acute intracranial pathology.
--- NOTE | 2023-05-10 18:55 | ECG_ITS ---
Test Reason : ALTERED MENTAL Blood Pressure : / mmHG Vent. Rate : 103 BPM Atrial Rate : 103 BPM P-R Int : 168 ms QRS Dur : 074 ms QT Int : 306 ms P-R-T Axes : 084 -12 051 degrees QTc Int : 400 ms Sinus tachycardia RSR' or QR pattern in V1 suggests right ventricular conduction delay Low voltage QRS Nonspecific T wave abnormality Abnormal ECG When compared with ECG of 04-JAN-2023 12:43, Nonspecific T wave abnormality, worse in Inferior leads Referred By: Ryan Bermudez Electronically Signed By:KAYDEN GARCIA MD
[2023-05-10 19:00] VITALS: BP 147/88; BP 166/80; PULSE 96; PULSE 98; RESP 18; TEMP 36.6; O2SAT 97; O2SAT 98; BMI 22.1
--- NOTE | 2023-05-10 19:00 | ED_ITS ---
HPI - General Adult General Chief complaint: Altered Mental Status Stated complaint: AMS Time Seen by Provider: 05/10/23 18:40 Source: patient, family (Patient's daughter), RN notes reviewed and old records reviewed Mode of arrival: EMS Limitations: no limitations History of Present Illness HPI narrative: 88-year-old female with past medical history significant for COPD, osteoarthritis, hyponatremia, hypertension presents for evaluation of confusion. Patient resides at [facility]. Per her daughter, she was at her baseline this morning The patient went to get an injection in her right hip due to chronic pain and weakness of the right hip Shortly after the injection she started to be somewhat confused and he not be able to remember things She was speaking clearly the entire time, she was able to ambulate with her walker She complains of chronic right lower leg weakness but this is unchanged from baseline At the time of my evaluation she is alert and oriented to person only She denies any pain, fevers, respiratory symptoms, nausea vomiting Related Data Home Medications Medication Instructions Recorded Confirmed calcium carbonate 600 mg-vitamin 1 tab PO DAILY 04/08/22 04/01/23 D3 10 mcg (400 unit) tablet (Calcium 600 + D(3)) multivitamin 1 tab PO DAILY 04/08/22 04/01/23 albuterol sulfate 90 mcg/actuation 2 puff inhalation Q6H PRN wheezing 07/13/22 04/01/23 aerosol inhaler fluticasone fur. 100 mcg-umeclid 1 ea inhalation DAILY 07/13/22 04/01/23 62.5 mcg-vilant 25 mcg inhalat.powder (Trelegy Ellipta) acetaminophen 325 mg capsule 325 mg PO QID PRN 08/03/22 04/01/23 (Tylenol) polyethylene glycol 3350 17 17 g PO BID PRN 11/18/22 04/01/23 gram/dose oral powder (Miralax) Previous Rx's Medication Instructions Recorded docusate sodium 100 mg capsule 100 mg PO BID #60 caps 10/10/22 (Colace) lactulose 10 gram/15 mL oral 15 ml PO DAILY PRN laxative effect 10/10/22 solution #90 mL acetaminophen 500 mg tablet 500 mg PO Q6H PRN fever or pain 10/13/22 (Tylenol Extra Strength) #14 tabs lidocaine 5 % topical patch 1 patch topical DAILY PRN pain #30 10/13/22 (Lidoderm) ea celecoxib 200 mg capsule 200 mg PO BID #180 caps 12/10/22 cetirizine 10 mg tablet 10 mg PO DAILY #90 tabs 12/10/22 leflunomide 10 mg tablet 10 mg PO DAILY #90 tabs 02/09/23 diltiazem HCl 30 mg tablet 30 mg PO BID #180 tabs 05/09/23 cefuroxime axetil 250 mg tablet 250 mg PO Q12H #10 tabs 05/10/23 Allergies Allergy/AdvReac Type Severity Reaction Status Date / Time Seasonal Allergies Allergy Intermediate congestion Verified 05/10/23 19:00 oxycodone [From Percocet] Allergy Unknown unknown Verified 05/10/23 19:00 Review of Systems 2 Constitutional: Constitutional: Denies chills, Denies fever(s), Denies headache(s) and Denies weakness Eyes: Eyes: Denies blurry vision ENT: Denies dizziness, Denies headache(s) and Denies sore throat Cardiovascular: Cardiovascular: Denies chest pain, Denies syncope and Denies dyspnea Respiratory: Respiratory: Denies cough and Denies dyspnea Gastrointestinal: Gastrointestinal: Denies abdominal pain, Denies nausea and Denies vomiting Genitourinary: Genitourinary: Denies dysuria Musculoskeletal: Musculoskeletal: Denies back pain Integumentary/Breasts: Skin/Breast: Denies rash Neurologic: Denies Neuro-related abnormal movements, Denies Abnormal speech present, Reports confusion, Denies dizziness, Denies syncope, Denies headache(s), Denies Sensory deficit (Neuro) and Denies weakness Psychiatric: Psychiatric: Denies anxiety and Reports confusion [facility] Past Medical History Medical History (Updated 05/10/23 @ 22:35 by Ryan Bermudez) Right hip pain Rheumatoid arthritis FHx: cholecystectomy Family History Family History Mother Acute arthritis Father No problems noted. Mother Acute arthritis Social History Social History (Updated 03/16/23 @ 10:38 by TEGAN Pimentel) Household Members Other:: Resident [place] House Housing: Other Housing Other:: [facility] [facility] Alcohol intake: current Alcohol intake frequency: holidays/special occasions only Alcohol type: wine Patient Tobacco Use Status: Former Tobacco user Smoked in Last 30 Days: No e-Cigarette/Vaping Use: Never Used Use of substances other than those prescribed or required for medical reasons: No Advance Directives: No Advance Directives Information Provided: No service: No Current occupational status: retired Current occupation: Former PT Cognitive needs: No Hearing needs: No Vision needs: Yes Physical Exam ED Vital Signs: Vital Signs - 24 hr 05/10/23 19:00 05/10/23 19:32 05/10/23 21:39 Temperature 97.8 F 98.9 F 97.9 F Pulse Rate 96 104 H 99 Respiratory Rate 18 16 18 Blood Pressure 147/88 H 169/105 H 159/103 H Pulse Oximetry 97 96 96 Oxygen Delivery Method Room Air Nasal Cannula Nasal Cannula Oxygen Flow Rate 3 2.5 BMI result Body Mass Index 22.1 Const General: confusion Nutritional Appearance: well nourished Orientation/consciousness: oriented to person, No oriented to place, No oriented to time and confusion HENMT Head: Yes normocephalic and Yes atraumatic Throat: Yes posterior oropharynx normal Eyes Eyelids: Yes eyelids normal Conjunctivae: conjunctivae normal Sclerae: sclerae normal Corneas: corneas normal Pupils: Equal, round and reactive pupils present EOM: EOMs intact bilaterally Neck Neck: Yes full ROM Resp Effort & Inspection: normal respiratory effort, able to speak in complete sentences, no audible wheezes and not labored Auscultation: clear to auscultation bilaterally GI Inspection: No distended Palpation (GI): Soft to palpation, not firm, nontender, no guarding and not rigid Skin General skin exam: elasticity normal Neuro General: oriented to person, No oriented to place, No oriented to time and confusion Cranial nerves: Yes CN's II-XII intact bilaterally, Yes Equal, round and reactive pupils present and Yes Bilaterally intact EOM present Cognition (Neuro): normal cognition Speech: No Abnormal speech present Sensory Exam: No Sensory deficit (Neuro) Extrem Other: Moving all extremities well without any obvious deformities Course Reevaluation(s) Reevaluation #1: For the patient's daughter, the patient appears back to her baseline. On exam she is now alert oriented to person place and time. Still awaiting UA and CT brain. Patient's labs, chest x-ray are reassuring Time: 20:50 Reevaluation #2: UA is consistent with a UTI which is likely the cause the patient's symptoms. Will treat with cefuroxime, she will be does prior to discharge. I discussed the patient and the daughter, the patient's daughter is comfortable bringing the patient home tonight Time: 22:34 Medical Decision Making Medical Decision Making [facility] Narrative: 88-year-old female presents for evaluation of an episode of confusion that started earlier this afternoon. Your were no stroke-like symptoms, no difficulty with speech, no focal deficits or weakness. This may have been a reaction to the cortisone injection in her right hip. Plan for labs, chest x- ray, UA, CT brain. Exam she has an NIH stroke score of 0 Differential Diagnosis Differential Diagnoses: The differential diagnosis associated with the presentation includes Medication reaction Contusion Delirium CVA TIA UTI Lab Data [facility] Lab Attestation statement: I reviewed the patient's lab results. Patient has a mild leukocytosis with a left shift. No anemia. No significant electrolyte abnormalities. Her chloride is with above normal at 109 and a BUN just above normal at 19. Patient's troponin is negative, glucose is elevated at 168 but no evidence of DKA. This is likely related to eating prior to arrival or related to the steroid injection earlier today, as the patient is not diabetic 05/10/23 19:26 05/10/23 19:26 Labs: Lab Results 05/10/23 05/10/23 05/10/23 Range/Units 19:25 19:26 21:41 WBC 11.0 H (4.8-10.8) X10*3/uL RBC 4.51 (4.20-5.50) X10*6/uL Hgb 14.0 (12.0-16.0) g/dl Hct 43.2 (37.0-47.0) % MCV 95.8 (80.0-98.0) fL MCH 31.0 (27.0-33.0) pg MCHC 32.4 (31.0-35.0) g/dl RDW 12.6 (11.0-16.0) % Plt Count 286 (160-400) X10*3/uL MPV 10.3 (9.4-12.3) fL Immature Gran % (Auto) 0.3 (0.0-0.4) % Neut % (Auto) 93.1 H (45-73) % Lymph % (Auto) 5.8 L (20-40) % [place] % (Auto) 0.5 L (2-11) % Eos % (Auto) 0.0 (0-4) % Baso % (Auto) 0.3 (0-2) % Lymph # (Auto) 0.6 L (1.2-4.9) X10*3/uL [place] # (Auto) 0.1 (0.1-1.2) X10*3/uL Eos # (Auto) 0.0 (0.0-0.4) X10*3/uL Baso # (Auto) 0.0 (0.0-0.2) X10*3/uL Abs Immat Gran (auto) 0.03 (0.00-0.03) X10*3/uL Absolute Neuts (auto) 10.2 H (2.0-8.3) x10*3/uL Absolute Nucleated RBC 0.000 (0.0-0.012) X10*3/uL Nucleated RBC % (auto) 0.0 (0.0-0.2) /100WBC Smear Tech's Comments VERIFIED PT 11.0 L (11.1-13.3) SEC INR 0.9 (0.9-1.1) APTT 27.4 (26.0-36.4) SEC Sodium 143 (135-145) mmol/L Potassium 5.0 (3.3-5.1) mmol/L Chloride 109 H (96-108) mmol/L Carbon Dioxide 22 (22-29) mmol/L Anion Gap 17 (12-20) BUN 19 H (9-16) mg/dL Creatinine 0.81 (0.5-1.4) mg/dL Estim Creat Clear Calc 34.4 Estimated GFR > 60 Random Glucose 158 H (60-115) mg/dL Calcium 10.1 D (8.4-10.2) mg/dL Total Bilirubin 0.4 (0.0-1.0) mg/dL AST 24 (5-31) U/L ALT 9 (0-31) U/L Alkaline Phosphatase 84 (39-117) U/L Troponin I High Sens 3.5 (<3.5-17.0) ng/L B-Natriuretic Peptide 49 (<100) pg/mL Total Protein 7.4 (6.5-8.0) g/dL Albumin 4.0 (3.5-5.0) g/dL Lipase 13 (8-78) U/L Urine Color Yellow Urine Appearance Cloudy Urine pH 6.5 (5.0-9.0) Ur Specific [place] 1.010 (1.005-1.025) Urine Protein 30 (1+) H (Neg-Trace) mg/dL Urine Glucose (UA) Negative (Negative) mg/dL Urine Ketones 15 (Negative) mg/dL Urine Blood Small (1+) H (Negative) Urine Nitrite Positive H (Negative) Ur Leukocyte Esterase Large (3+) H (Negative) Urine RBC 0-2 (0-2) /HPF Urine WBC >50 H (0-5) /HPF Ur Squamous Epith Cells 0-2 (0-2) /HPF Urine Bacteria 4+ (None Seen) Hyaline Casts 0-2 (0-2) /LPF Influenza Type A (PCR) NEGATIVE (Negative) Influenza Type B (PCR) NEGATIVE (Negative) RSV RNA Qual (PCR) NEGATIVE (Negative) SARS-CoV-2 RNA (RT-PCR) NEGATIVE (Negative) Independent Interpretation I performed an independent interpretation of an: EKG (Sinus tachycardia rate of 103. No ST elevations or depressions.) and Plain X-Ray (No infiltrate) Discharge Plan Discharge Clinical Impression: Urinary tract infection Patient Disposition: Home, Self-Care Instructions: Urinary Tract Infection in Older Adults (ED) Additional Instructions: Your workup was reassuring but was significant for urinary tract infection Take the antibiotic twice daily for the next 5 days Hydrate well Take all of your other medications as prescribed Return for new or worsening symptoms Prescriptions: New cefuroxime axetil 250 mg tablet 250 mg PO Q12H Qty: 10 0RF No Action cetirizine 10 mg tablet 10 mg PO DAILY Qty: 90 3RF celecoxib 200 mg capsule 200 mg PO BID Qty: 180 1RF leflunomide 10 mg tablet 10 mg PO DAILY Qty: 90 1RF diltiazem HCl 30 mg tablet 30 mg PO BID Qty: 180 1RF acetaminophen [Tylenol Extra Strength] 500 mg tablet 500 mg PO Q6H PRN (Reason: fever or pain) Qty: 14 0RF lidocaine [Lidoderm] 5 % adhesive patch,medicated 1 patch topical DAILY MDD remove after 12 hours PRN (Reason: pain) Qty: 30 0RF Rx Instructions: leave on most painful area for up to 12 hrs docusate sodium [Colace] 100 mg capsule 100 mg PO BID Qty: 60 0RF lactulose 10 gram/15 mL solution 15 ml PO DAILY PRN (Reason: laxative effect) Qty: 90 0RF multivitamin Tablet 1 tab PO DAILY calcium carbonate-vitamin D3 [Calcium 600 + D(3)] 600 mg-10 mcg (400 unit) tablet 1 tab PO DAILY Trelegy Ellipta 100-62.5-25 mcg blister with device 1 ea inhalation DAILY albuterol sulfate 90 mcg/actuation HFA aerosol inhaler 2 puff inhalation Q6H PRN (Reason: wheezing) polyethylene glycol 3350 [Miralax] 17 gram/dose powder 17 g PO BID PRN acetaminophen [Tylenol] 325 mg capsule 325 mg PO QID PRN
[2023-05-10 19:32] VITALS: BP 169/105; PULSE 104; RESP 16; TEMP 37.2; O2SAT 96
[2023-05-10 19:33] LABS: Basophils Percent Auto 0.3 % (0-2); Hematocrit 43.2 % (37.0-47.0); Imm Gran Abs Auto 0.03 X10*3/uL (0.00-0.03); Imm Gran Pct Auto 0.3 % (0.0-0.4); Lymphocytes Absolute Auto 0.6 X10*3/uL (1.2-4.9); Lymphocytes Percent Auto 5.8 % (20-40); MANUAL DIFF FLAG SCAN; Mean Corpuscular HGB Conc 32.4 g/dl (31.0-35.0); Mean Corpuscular Volume 95.8 fL (80.0-98.0); Mean Platelet Volume 10.3 fL (9.4-12.3); Monocytes Absolute Auto 0.1 X10*3/uL (0.1-1.2); Monocytes Percent Auto 0.5 % (2-11); Neutrophils Absolute Auto 10.2 x10*3/uL (2.0-8.3); Neutrophils Percent Auto 93.1 % (45-73); Platelet Count 286 X10*3/uL (160-400); Red Blood Count 4.51 X10*6/uL (4.20-5.50); Red Cell Distribution Width 12.6 % (11.0-16.0); SCAN SMEAR FLAG 1
[2023-05-10 19:38] LABS: INTERNATIONAL NORM RATIO 0.9 (0.9-1.1)
[2023-05-10 19:41] LABS: Partial Thromboplastin Time 27.4 SEC (26.0-36.4)
--- NOTE | 2023-05-10 19:49 | MHC.EDTECH ---
Patient was biba from home ,Patient was change into hospital gown ,ekg taken and was read by Provider ,Blood drawn and sent to lab ,rsv /covid swab collected and sent to lab ,Pt was hooked up to monitoring engineer ,vitals taken ,warm blanket given ,pt comfortable at this time ,Pt daughter at bedside .
--- NOTE | 2023-05-10 19:50 | PC.NURSE ---
pt to ct scan
[2023-05-10 19:59] LABS: B Type Natriuretic Peptide 49 pg/mL (<100)
[2023-05-10 20:00] LABS: Alanine Aminotransferase 9 U/L (0-31); Alkaline Phosphatase 84 U/L (39-117); Anion Gap 17 (12-20); Aspartate Amino Transferase 24 U/L (5-31); Bilirubin Total 0.4 mg/dL (0.0-1.0); Blood Urea Nitrogen 19 mg/dL (9-16); Calcium 10.1 mg/dL (8.4-10.2); Carbon Dioxide 22 mmol/L (22-29); Chloride 109 mmol/L (96-108); Creatinine Clr Calc Pharmacy 34.4; Estimated Glomerular Filt Rate > 60; Glucose Random 158 mg/dL (60-115); Lipase 13 U/L (8-78); Sodium 143 mmol/L (135-145); Total Protein 7.4 g/dL (6.5-8.0)
[2023-05-10 20:03] LABS: Troponin-I High Sensitivity 3.5 ng/L (<3.5-17.0)
[2023-05-10 20:07] LABS: SLIDE REVIEW VERIFIED
[2023-05-10 20:10] LABS: Influenza A PCR NEGATIVE (Negative); Influenza B PCR NEGATIVE (Negative); Resp Syncy Virus RNA Qual PCR NEGATIVE (Negative); SARS COV2 PCR INHOUSE NEGATIVE (Negative)
--- NOTE | 2023-05-10 20:15 | PC.NURSE ---
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
[2023-05-10 21:39] VITALS: BP 159/103; PULSE 99; RESP 18; TEMP 36.6; O2SAT 96
--- NOTE | 2023-05-10 21:42 | MHC.EDTECH ---
Pt urine sample collected and sent to lab ,vitals taken ,pt is comfortable ,no apparent distress noted ,will continue to monitor .
[2023-05-10 21:56] LABS: Appearance Urine Cloudy; Color Urine Yellow; Glucose Urine UA Negative (Negative); Leukocyte Esterase Urine Large (3+) (Negative); Nitrite Urine Positive (Negative); PH 6.5 (5.0-9.0); UMIC TRIGGER UACC YES; Urine Blood Small (1+) (Negative); Urine Ketones 15 mg/dL (Negative); Urine Protein 30 (1+) mg/dL (Neg-Trace)
[2023-05-10 22:16] LABS: Bacteria Urine 4+ (None Seen); Hyaline Casts Urine 0-2 /LPF (0-2); RBC Urine 0-2 /HPF (0-2); Squamous Epithelial Cell Urine 0-2 /HPF (0-2); UACC Culture Trigger YES; WBC Urine >50 /HPF (0-5)
[2023-05-10] MEDS: cefuroxime axetiL 250 MG TABLET PO (23:09)
== END 2023-05-10 23:18 | disposition home or self-care (01) ==
PROVIDERS: Physician Assistant; Emergency Provider Student in an Organized Health Care Education/Training Program; PCP Internal Medicine Endocrinology, Diabetes & Metabolism
DX: N39.0 Urinary tract infection, site not specified (principal); R41.82 Altered mental status, unspecified; R53.1 Weakness; Z20.822 Contact with and (suspected) exposure to COVID-19; Z20.828 Contact with and (suspected) exposure to other viral communicable diseases; R00.0 Tachycardia, unspecified; D72.829 Elevated white blood cell count, unspecified; I10 Essential (primary) hypertension; J44.9 Chronic obstructive pulmonary disease, unspecified; M05.10 Rheumatoid lung disease with rheumatoid arthritis of unspecified site; G89.29 Other chronic pain; M25.551 Pain in right hip; Z87.891 Personal history of nicotine dependence; Z79.899 Other long term (current) drug therapy
CPT/HCPCS: 0241U; 20610; 36415; 70450; 71045; 80053; 81001; 83690; 83880; 84484; 85025; 85610; 85730; 87086; 87088; 87186; 93005; 99284; J2795; J3301; Q9967

== ENCOUNTER 2023-06-08 10:56 | Outpatient (AMB) | payer MEDICARE, SELFPAY ==
[2023-06-08 10:57] VITALS: BP 110/70; PULSE 110; O2SAT 94; BMI 21.3
--- NOTE | 2023-06-08 10:57 | A.OFFPC_ITS ---
Vital Signs 06/08/23 10:57 Height 5 ft Weight 109 lb BMI 21.3 BP 110/70 Blood Pressure Location Lt brachial Position Sitting Pulse 110 H Pulse Source Pulse Oximeter Pulse Oximetry (%) 94 Oxygen Delivery Method Room Air Intake Visit Reasons: 2 month fu Intake Note: Pt is here today for 2 months follow up visit. Pt's daughter states that pt has UTI at the end of April. Allergies Seasonal Allergies Allergy (Intermediate, Verified 06/08/23 11:01) congestion Medication List - Last Reconciled 06/08/23 by Lubna Carmichael MD acetaminophen (Tylenol Extra Strength) 500 mg PO Q6H PRN acetaminophen (Tylenol) 325 mg PO QID PRN albuterol sulfate 90 mcg/actuation 2 puffs inhalation Q6H PRN calcium carbonate-vitamin D3 600 mg-10 mcg (400 unit) (Calcium 600 + D(3)) 1 tab PO DAILY celecoxib 200 mg PO BID cetirizine 10 mg PO DAILY diltiazem HCl 30 mg PO BID docusate sodium (Colace) 100 mg PO BID xsybotatrgp-nfnqjnqor-dndoscli 100-62.5-25 mcg (Trelegy Ellipta) 1 ea inhalation DAILY lactulose 15 mL PO DAILY PRN leflunomide 10 mg PO DAILY lidocaine 5% (Lidoderm) 1 patch topical DAILY PRN MDD remove after 12 hours multivitamin 1 tab PO DAILY polyethylene glycol 3350 (Miralax) 17 grams PO BID PRN Tobacco use date assessed: 06/08/23 Fall risk assessment: No Falls in past year Last assessed Fall Risk: 06/08/23 Dental Screening Dental Screen Date: 06/08/23 Did you have a dental visit in the last 12 months?: Yes Did you have a dental problem in the last 6 months where you did not have access to dental care?: No Was dental information given to patient?: Patient has dentist HPI 2 month fu HPI Details Pt presents for f/u Pt was treated with Cefuroxime for UTI completed 05/15. Pt had R hip injection for advanced OA without relief. Pt has been taking Cardizem for HTN. COPD is stable on Trelegy. [facility] Medical History (Updated 06/08/23 @ 11:46 by Lubna Carmichael MD) Right hip pain Rheumatoid arthritis FHx: cholecystectomy Family History Mother Acute arthritis Father No problems noted. Mother Acute arthritis Social History Household Members Other:: Resident [facility] [facility] Housing: Other Housing Other:: [facility] Alcohol intake: current Alcohol intake frequency: holidays/special occasions only Alcohol type: wine Patient Tobacco Use Status: Former Tobacco user e-Cigarette/Vaping Use: Never Used service: No Current occupational status: retired Current occupation: Former PT Cognitive needs: No Hearing needs: No Vision needs: Yes Questionnaire AUDIT C Alcohol Use Questionnaire (AUDIT-C) 1. How often do you have a drink containing alcohol?: Never 3. How often do you have six or more drinks on one occasion?: Never Total Score: 0 Review of Systems Const All systems reviewed & are unremarkable except as noted in HPI and below Reports no additional complaints Eyes Reports no additional complaints ENT Reports no additional complaints Card Reports no additional complaints Resp Reports no additional complaints GI Reports no additional complaints Physical exam (Primary Care) Vital Signs: Last Vital Signs Pulse 110 H 06/08/23 10:57 BP 110/70 06/08/23 10:57 Pulse Ox 94 06/08/23 10:57 Oxygen Delivery Method Room Air 06/08/23 10:57 BMI result Body Mass Index 21.3 Tobacco/Smoking Status: Tobacco use Status Tobacco use date assessed 06/08/23 06/08/23 11:05 Patient Tobacco Use Status Former Tobacco user 06/08/23 11:05 e-Cigarette/Vaping Use Never Used 06/08/23 11:05 Const General: no acute distress HENMT Head: Yes normal to inspection Ears: hearing grossly normal bilaterally Mouth: Normal oral and palatal mucosa present Throat: Yes posterior oropharynx normal Resp Effort & Inspection: normal respiratory effort Auscultation: diminished lung sounds Cardio Rhythm: regular rhythm Heart sounds: S1 normal heart sound present and S2 normal heart sound present GI Inspection: Yes normal to inspection Palpation (GI): Soft to palpation Percussion: Yes normal to percussion Assessment and Plan Assessment & Plan (1) COPD (chronic obstructive pulmonary disease): Comment: Follows up with pulmonology, supplemental O2 at night Code(s): J44.9 - Chronic obstructive pulmonary disease, unspecified Plan: cont TRELEGY (2) Hypertension: Code(s): I10 - Essential (primary) hypertension Plan: BP is low, stop Cardizem (negative inotrope) and start Coreg 3.125 mg twice a day. Follow-up in 6 weeks for blood pressure check (3) Osteoarthritis of right hip: Comment: Advanced osteoarthritis, cortisone injection without relief 06/02 Code(s): M16.11 - Unilateral primary osteoarthritis, right hip Plan: Continue Celebrex and Tylenol arthritis p.r.n. (4) Cardiomyopathy: Comment: 05/02 Echo mild to moderate left systolic dysfunction, EF 40-45%, mild aortic stenosis, mildly dilated ascending aorta at 3.7 cm Code(s): I42.9 - Cardiomyopathy, unspecified Plan: Discontinue Cardizem and start Coreg 3.125 twice a day Medications: New ghqnxdvwffu-myvbqwioc-qkfcptva 100-62.5-25 mcg (Trelegy Ellipta) 1 ea inhalation DAILY 60 ea 6RF carvedilol (Coreg) must administer with a meal/food 3.125 mg PO BID 60 tabs 5RF Discontinued diltiazem HCl Discontinued Reason: Doctor's Order 30 mg PO BID 180 tabs 1RF Coding Level of Care Code Est Pt Level 4 (23296) Diagnoses COPD (chronic obstructive pulmonary disease) J44.9 Hypertension I10 Osteoarthritis of right hip M16.11 Cardiomyopathy I42.9
== END 2023-06-08 11:46 | disposition home or self-care (01) ==
PROVIDERS: PCP Internal Medicine; Visit Provider Internal Medicine
DX: J44.9 Chronic obstructive pulmonary disease, unspecified (principal); I10 Essential (primary) hypertension; M16.11 Unilateral primary osteoarthritis, right hip; I42.9 Cardiomyopathy, unspecified
CPT/HCPCS: 99214

== ENCOUNTER 2023-06-16 11:28 | Outpatient (AMB) | payer MEDICARE, SELFPAY ==
--- NOTE | 2023-06-16 11:29 | MHC.OFFVIS ---
Intake Vital Signs 06/16/23 11:35 Height 5 ft Weight 111 lb 12.39 oz BMI 21.8 BP 124/70 Blood Pressure Location Lt brachial Position Sitting Pulse 97 Pulse Source Pulse Oximeter Temp 97 F Temp Source Skin Pulse Oximetry (%) 92 Oxygen Delivery Method Room Air Intake Visit Reasons: ra Intake Note: Patient presents today to follow up on RA. Son reports patient was a little confused this morning. Para Educator Required: No Accompanied by: Son Allergies Seasonal Allergies Allergy (Intermediate, Verified 06/16/23 11:36) congestion Medication List - Last Reconciled 06/16/23 by Lorenzo Galeano MD acetaminophen (Tylenol Extra Strength) 500 mg PO Q6H PRN albuterol sulfate 90 mcg/actuation 2 puffs inhalation Q6H PRN calcium carbonate-vitamin D3 600 mg-10 mcg (400 unit) (Calcium 600 + D(3)) 1 tab PO DAILY carvedilol (Coreg) 3.125 mg PO BID celecoxib 200 mg PO BID cetirizine 10 mg PO DAILY docusate sodium (Colace) 100 mg PO BID wbqzxzumqcv-tbbxaaipz-vvwnklsf 100-62.5-25 mcg (Trelegy Ellipta) 1 ea inhalation DAILY lactulose 15 mL PO DAILY PRN leflunomide 10 mg PO DAILY lidocaine 5% (Lidoderm) 1 patch topical DAILY PRN MDD remove after 12 hours multivitamin 1 tab PO DAILY polyethylene glycol 3350 (Miralax) 17 grams PO BID PRN HPI HPI Comments History of Present Illness Details The patient returns today for evaluation of her rheumatoid arthritis and osteoarthritis. Her son accompanies her. She also has some interstitial lung disease from the RA. Most problematic this year has been right hip pain. This shows on x-ray to be due to fairly severe osteoarthritis. She has pain with any weight-bearing activity but seems relatively comfortable at night. She is not the greatest surgical candidate so there was an attempt at a intra-articular corticosteroid injection back in April. She does not recall that it helped much. After that she developed a UTI with some confusion so there is reluctance to proceed with that treatment again in the future. She has remained on the leflunomide 10 mg daily and Celebrex 200 mg twice a day. She does not seem to have any problems with nausea, vomiting, constipation or diarrhea. She is in an assisted living center and has someone monitoring her medications for her. She does have oxygen that she uses at night for her ILD. She does not seem to use it are needed much during the day. She has a Pulmonary appointment in the next week or so. [facility] Medical History Right hip pain Rheumatoid arthritis FHx: cholecystectomy Family History Mother Acute arthritis Father No problems noted. Mother Acute arthritis Social History Household Members Other:: Resident [place] House Housing: Other Housing Other:: [facility] [facility] Alcohol intake: current Alcohol intake frequency: holidays/special occasions only Alcohol type: wine Patient Tobacco Use Status: Former Tobacco user e-Cigarette/Vaping Use: Never Used service: No Current occupational status: retired Current occupation: Former PT Cognitive needs: No Hearing needs: No Vision needs: Yes Review of Systems Const Details: Low energy at times. She gets around at home with a walker but uses a cane here. Negative for appetite change, weight change, fever, chills, malaise Eyes Details: Negative for vision change, dry eyes,headaches and dizziness ENT Details: Negative for hearing change, tinnitus, oral ulcer, nose bleeds and oral dryness. Card Details: Negative chest pain, edema and syncope Resp Details: She does not recall any dyspnea but she seems like she is more limited in terms of walking due to her hip pain rather than dyspnea. Negative for cough and wheezing GI Details: Negative indigestion/heartburn, nausea, abdominal pain, bowel changes, diarrhea, constipation and bloody stool. Details: She seems prone to UTIs. Negative for dysuria, hematuria, nocturia, decreased force/flow and genital discharge Skin/Breast Details: Negative for itching, rash, hives, Raynaud's symptoms, sun sensitivity, and skin cancer Neuro Details: She admits to memory problems. Negative for epilepsy, palsy, stroke, changes in speech, tingling and weakness Psych Details: Negative for anxiety, depression and stress Endo Details: Negative for polyuria and polydypsia Bandar/Lymph Details: Negative for excessive bruising or bleeding. Physical Exam Vital Signs: Last Vital Signs Temp 97 F 06/16/23 11:35 Pulse 97 06/16/23 11:35 BP 124/70 06/16/23 11:35 Pulse Ox 92 06/16/23 11:35 Oxygen Delivery Method Room Air 06/16/23 11:35 BMI result Body Mass Index 21.8 APPEARANCE: Patient in no acute distress EYES no redness, pupils equal and reactive to light, eyelids normal EARS:? Decreased hearing in both ears.? External ear normal, canal clear and tympanic membrane normal. NOSE/SINUS:? Airflow through both nares, no nasal discharge, no bleeding THROAT:? Oral mucosa moist, no ulcerations NECK:? No thyromegaly or masses, no adenopathy, trachea midline. HEART:? Regulrar rhythm, S1-S2 heard, no murmurs, rubs or gallops. LUNG:? Clear to percussion and auscultation ABD:? Normal bowel sounds, no organomegaly, masses or tenderness. EXTREMITIES:? No edema, no calf tenderness, normal peripheral pulses. JOINT EXAM:.?? Cervical Spine:.? Full range of motion without pain; no tenderness. Thoracic Spine:.? No scoliosis.? Some kyphosis.? No tenderness on palpation. Lumbar Spine:.? Alignment normal.? Mild pain with flexion of 60 degrees?or with attempts at hyperextension.? No tenderness. Chest Wall:.? No tenderness, swelling, increased warmth or erythema. Hands:? Right:? There is boggy swelling in all the MCP joints with some mild ulnar deviation and flexion contracture.? The 4th finger catches and subluxes at the MCP joint with flexion and extension.? There is no tenderness in the MCP joints today.? She has mild bony enlargement with tenderness at the base of the thumb.? The thumb MCP has some degree of ligamentous laxity.? There is some thickening in the 2nd through 4th PIP joints without tenderness.? She has mild bony enlargement and lateral deviation at the 2nd and 3rd PIP joints.? These are not tender.? Left:? Mild bony enlargement at the base of the thumb without tenderness.? The thumb MCP has some laxity, slight hyperextension, and minimal tenderness.? The other MCPs are slightly swollen without tenderness but over the 5th MCP is a cystic structure that is about a 8 mm in diameter.? It is not tender or warm.? There is no epidermal change on the lump.? It looks like a synovial cyst.? The PIP's have no swelling or tenderness.? There is mild bony enlargement and tenderness at the 2nd 3rd DIP joints.? She has some thenar atrophy but no sensory loss.. Wrists:? Right: Slight swelling and minimal tenderness.? No discomfort with flexion extension at 75 degrees.? Left:? Slight discomfort at 80 degrees flexion extension without tenderness, swelling, increased warmth or erythema. Elbows:. Normal pain-free range of motion without tenderness, swelling, increased warmth or erythema. Shoulders:? Right: slight pain with extremes of normal range of motion.? No swelling or tenderness.? No abductor weakness or adenopathy.? Left:? Normal pain-free range of motion.? No tenderness, abductor weakness or adenopathy.? Hips:? Right:? Mild to moderate pain with flexion beyond 90 degrees, any attempted internal rotation, or external rotation beyond 10 degrees. There is no inguinal tenderness or mass..? Left:? Full range of motion with slight lateral hip and lumbar pain with extremes of rotation. No groin pain with motion. Hip bursa: Mild bilateral trochanteric the tenderness. Knees:? Right: Mild patellofemoral crepitus and mild pain with the extremes of flexion or extension.? There is mild medial and lateral tenderness without effusion, redness or warmth.? No popliteal tenderness or swelling.? Left:? Full range of motion without tenderness, swelling or pain.? There is mild crepitus. Ankles:?Normal pain-free range of motion without tenderness, swelling, increased warmth or erythema. ? 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: Comment: lower lobe ILD, some COPD Code(s): M05.10 - Rheumatoid lung disease with rheumatoid arthritis of unspecified site (3) Osteoarthritis of lumbosacral spine: Code(s): M47.817 - Spondylosis without myelopathy or radiculopathy, lumbosacral region (4) [facility] use of drug: Code(s): Z79.899 - Other nursing home (current) drug therapy (5) Seropositive rheumatoid arthritis: Comment: Methotrexate in 1999 - stopped 03/22/08 due to infiltrates, Leflunomide since 05/18 Code(s): M05.9 - Rheumatoid arthritis with rheumatoid factor, unspecified Plan Longstanding seropositive rheumatoid arthritis with some destructive changes and deformities particularly in the hands. Additionally she has end-stage osteoarthritis, probably secondary to the RA in the right hip. There are milder changes of OA in the left hip. The patient is able to ambulate although with pain using her crutches or a walker. She does not seem to have any night pain. The remaining option for this would be to consider a hip replacement. She has a combination of COPD and some interstitial lung disease from RA and previous infections. The lungs seem stable for now. I think she is more limited by the right hip pain than lung disease in terms of her walking. Given her lung disease, cogntive impairment and recurrent UTI there would be some increased risk of surgery. She seems comfortable with the current treatment so we will continue. Lab work looked okay about a month ago. We will recheck the lab work when she is in the building in July. A follow-up in Rheumatology for 3 months is recommended. Coding Level of Care Code Est Pt Level 3 (12281) Diagnoses Osteoarthritis of right hip M16.11 Rheumatoid lung disease with rheumatoid arthritis M05.10 Osteoarthritis of lumbosacral spine M47.817 [facility] use of drug Z79.899 Seropositive rheumatoid arthritis M05.9
[2023-06-16 11:35] VITALS: BP 124/70; PULSE 97; TEMP 36.1; O2SAT 92; BMI 21.8
== END 2023-06-16 11:56 | disposition home or self-care (01) ==
PROVIDERS: PCP Internal Medicine; Visit Provider Internal Medicine Rheumatology
DX: M05.79 Rheumatoid arthritis with rheumatoid factor of multiple sites without organ or systems involvement (principal); M16.11 Unilateral primary osteoarthritis, right hip; M05.10 Rheumatoid lung disease with rheumatoid arthritis of unspecified site; M47.817 Spondylosis without myelopathy or radiculopathy, lumbosacral region; Z79.899 Other long term (current) drug therapy
CPT/HCPCS: 99213

== ENCOUNTER → 2023-06-16 11:28 | Outpatient (BNVA) | payer MEDICARE, SELFPAY | PROVIDERS: PCP Internal Medicine; Visit Provider Internal Medicine Rheumatology | DX: M05.10 Rheumatoid lung disease with rheumatoid arthritis of unspecified site (principal); M05.9 Rheumatoid arthritis with rheumatoid factor, unspecified; M16.11 Unilateral primary osteoarthritis, right hip; M47.817 Spondylosis without myelopathy or radiculopathy, lumbosacral region; Z79.899 Other long term (current) drug therapy | CPT/HCPCS: 99212 ==

== ENCOUNTER 2023-07-15 14:00 | Outpatient (REF) | payer MEDICARE, OTHER, SELFPAY | END 2023-07-15 14:01 | disposition home or self-care (01) | LOC: HO.HMGCLNP 14:00 | PROVIDERS: PCP Internal Medicine; Visit Provider Internal Medicine | DX: R30.0 Dysuria (principal); R19.7 Diarrhea, unspecified; J44.9 Chronic obstructive pulmonary disease, unspecified; I10 Essential (primary) hypertension | CPT/HCPCS: 81001; 81003; 87086 ==

== ENCOUNTER 2023-07-20 11:13 | Outpatient (AMB) | payer MEDICARE, OTHER, SELFPAY ==
[2023-07-20 11:22] VITALS: BP 96/60; PULSE 96; O2SAT 93; BMI 20.2
--- NOTE | 2023-07-20 11:22 | MHC.PC.OV ---
Vital Signs 07/20/23 11:22 Height 5 ft Weight 103 lb 8 oz BMI 20.2 BP 96/60 Blood Pressure Location Rt brachial Position Sitting Pulse 96 Pulse Source Pulse Oximeter Pulse Oximetry (%) 93 Oxygen Delivery Method Room Air Intake Visit Reasons: 6 week follow up Intake Note: Pt is here today for 6 weeks follow up visit. Allergies Seasonal Allergies Allergy (Intermediate, Verified 07/20/23 11:45) congestion Tobacco use date assessed: 07/20/23 Fall risk assessment: No Falls in past year Last assessed Fall Risk: 07/20/23 Dental Screening Dental Screen Date: 07/20/23 Did you have a dental visit in the last 12 months?: Yes Did you have a dental problem in the last 6 months where you did not have access to dental care?: No Was dental information given to patient?: Patient has dentist HPI 6 week follow up HPI Details Patient presents for the follow-up. She has been taking carvedilol instead of Cardizem and tolerating well. Patient had an episode confusion and urinalysis was consistent with UTI. She has been taking Bactrim for the last 3 days. Patient denies fever chills abdominal pain. She has intermittent diarrhea and stool incontinence according to her daughter in-law. [facility] Medical History (Updated 07/20/23 @ 12:22 by Lubna Carmichael MD) Right hip pain Rheumatoid arthritis FHx: cholecystectomy Family History Mother Acute arthritis Father No problems noted. Mother Acute arthritis Social History Household Members Other:: Resident [facility] Housing: Other Housing Other:: [employer] [facility] Alcohol intake: current Alcohol intake frequency: holidays/special occasions only Alcohol type: wine Patient Tobacco Use Status: Former Tobacco user e-Cigarette/Vaping Use: Never Used service: No Current occupational status: retired Current occupation: Former PT Cognitive needs: No Hearing needs: No Vision needs: Yes Questionnaire AUDIT C Alcohol Use Questionnaire (AUDIT-C) 1. How often do you have a drink containing alcohol?: Never 3. How often do you have six or more drinks on one occasion?: Never Total Score: 0 Review of Systems Const All systems reviewed & are unremarkable except as noted in HPI and below Reports no additional complaints Eyes Reports no additional complaints ENT Reports no additional complaints Card Reports no additional complaints Resp Reports no additional complaints GI Reports no additional complaints Reports no additional complaints Physical exam (Primary Care) Vital Signs: Last Vital Signs Pulse 96 07/20/23 11:22 BP 96/60 07/20/23 11:22 Pulse Ox 93 07/20/23 11:22 Oxygen Delivery Method Room Air 07/20/23 11:22 BMI result Body Mass Index 20.2 Tobacco/Smoking Status: Tobacco use Status Tobacco use date assessed 07/20/23 07/20/23 11:48 Patient Tobacco Use Status Former Tobacco user 07/20/23 11:22 e-Cigarette/Vaping Use Never Used 07/20/23 11:22 Const General: no acute distress HENMT Face and sinus: Yes normal facial exam Neck Neck: Yes supple Resp Effort & Inspection: normal respiratory effort Auscultation: clear to auscultation bilaterally Cardio Rhythm: regular rhythm Heart sounds: S1 normal heart sound present, S2 normal heart sound present and Murmur heart sound present systolic II/ GI Inspection: Yes normal to inspection Palpation (GI): Soft to palpation Percussion: Yes normal to percussion Auscultation: normal bowel sounds Assessment and Plan Assessment & Plan (1) Dysuria: Code(s): R30.0 - Dysuria Plan: Continue Bactrim and recheck urine culture after 1 week of complain medication. Estrogen vaginal cream once a week will be tried to prevent frequent UTI (2) Diarrhea: Code(s): R19.7 - Diarrhea, unspecified Plan: Patient will start probiotic and Citrucel. Stool will be obtained to rule out C diff (3) COPD (chronic obstructive pulmonary disease): Comment: Follows up with pulmonology, supplemental O2 at night Code(s): J44.9 - Chronic obstructive pulmonary disease, unspecified Plan: Continue Trelegy and supplemental O2 (4) Hypertension: Code(s): I10 - Essential (primary) hypertension (5) Cardiomyopathy: Comment: 05/02 Echo mild to moderate left systolic dysfunction, EF 40-45%, mild aortic stenosis, mildly dilated ascending aorta at 3.7 cm Code(s): I42.9 - Cardiomyopathy, unspecified Plan: Continue carvedilol follow-up in 2 months Orders: Orders Urine Culture 2 Weeks I10 - Essential (primary) hypertension, J44.9 - Chronic obstructive pulmonary disease, unspecified, R19.7 - Diarrhea, unspecified, R30.0 - Dysuria CDiff Gene PCR Today I10 - Essential (primary) hypertension, J44.9 - Chronic obstructive pulmonary disease, unspecified, R19.7 - Diarrhea, unspecified Comprehensive Met. Panel Today I10 - Essential (primary) hypertension, J44.9 - Chronic obstructive pulmonary disease, unspecified, R19.7 - Diarrhea, unspecified Complete Blood Count Auto Diff Today I10 - Essential (primary) hypertension, J44.9 - Chronic obstructive pulmonary disease, unspecified, R19.7 - Diarrhea, unspecified TSH reflex Free T4 Today I10 - Essential (primary) hypertension, J44.9 - Chronic obstructive pulmonary disease, unspecified, R19.7 - Diarrhea, unspecified Coding Level of Care Code Est Pt Level 4 (26265) Diagnoses Dysuria R30.0 Diarrhea R19.7 COPD (chronic obstructive pulmonary disease) J44.9 Hypertension I10 Cardiomyopathy I42.9
== END 2023-07-20 12:18 | disposition home or self-care (01) ==
PROVIDERS: PCP Internal Medicine Endocrinology, Diabetes & Metabolism; Visit Provider Internal Medicine
DX: R30.0 Dysuria (principal); J44.9 Chronic obstructive pulmonary disease, unspecified; I42.9 Cardiomyopathy, unspecified; I10 Essential (primary) hypertension; R19.7 Diarrhea, unspecified
CPT/HCPCS: 99214

== ENCOUNTER 2023-07-21 16:51 | Inpatient (IN) | payer MEDICARE, OTHER, SELFPAY ==
--- NOTE | ~2023-07-21 | CT_ITS ---
EXAMINATION: CT ABDOMEN AND PELVIS WITH CONTRAST CLINICAL INFORMATION: abd pain, n/v COMPARISON: 10/13/2022 TECHNIQUE: Multidetector volumetric images were obtained from the superior aspect of the liver through the pubic symphysis following administration 85 mL of Omnipaque 350 intravenous contrast. Sagittal and coronal reformatted images were obtained on the technologist's workstation. Oral contrast: No This CT examination was performed using dose optimization techniques as appropriate, variously including the following: *Automated exposure control *Adjustment of mA and/or kV according to patient size (this includes techniques or standardized protocols for targeted exams where dose is matched to indication/reason for exam; i.e. extremities or head) *Use of iterative reconstruction technique DLP: 391 mGy-cm FINDINGS: LUNG BASES: Reticular interstitial opacities are present in the periphery of the lung bases bilaterally, consistent with fibrotic change. Small sliding-type hiatal hernia. Tortuous thoracic aorta. LIVER, GALLBLADDER, AND BILIARY TREE: The liver is normal in size, shape, and attenuation. There is a fluid attenuation lesion in the left hepatic lobe, most consistent with a cyst, unchanged as compared to prior. No suspicious hepatic lesion. There is mild intrahepatic and extra hepatic biliary ductal dilatation, unchanged as compared to prior and likely related to the prior cholecystectomy. PANCREAS: Unremarkable. SPLEEN: Unremarkable. ADRENAL GLANDS: A 1.5 cm right adrenal nodule is hypoattenuating, measuring -16 Hounsfield units on the prior CT, consistent with a lipid rich adrenal adenoma. No recommended imaging follow-up. KIDNEYS AND URETERS: Mild renal atrophy, left side greater than right. Kidneys enhance symmetrically. Multiple bilateral parapelvic cyst. Small subcentimeter foci of cortical hypoattenuation kidneys are too small to characterize, though statistically favored to correspond to simple cysts. No recommended imaging follow-up. No hydronephrosis, hydroureter, or calculi seen. No perinephric stranding. BLADDER: Mild hyperenhancement of the bladder wall with slight bladder wall thickening laterally. GASTROINTESTINAL TRACT/ABDOMINAL WALL: Moderate-sized hiatal hernia. Stomach, small bowel, and colon are normal in caliber. The appendix is not seen. No appreciable bowel wall thickening or surrounding inflammatory changes. Moderate colonic diverticulosis without evidence of acute diverticulitis. A small left inguinal hernia contains loops of small bowel without appreciable findings of strangulation or obstruction. A small bowel loop also extends into the right inguinal canal without appreciable obstruction or strangulation. LYMPH NODES: Normal. VASCULAR: Calcific atherosclerosis is present in the abdominal aorta and iliac arteries. No aneurysmal dilatation. PELVIC VISCERA: The uterus and adnexa are unremarkable. OSSEOUS STRUCTURES: Severe multilevel degenerative spondylosis in the lumbar spine with left convex lumbar scoliosis. Bones are osteopenic. 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 No acute osseous findings. CT/CT abdomen pelvis w IV con IMPRESSION: 1. No acute intra-abdominal or intrapelvic abnormalities are identified. 2. Moderate-sized hiatal hernia. 3. Bilateral inguinal hernias containing loops of small bowel without evidence of obstruction or strangulation. 4. Moderate colonic diverticulosis without evidence of acute diverticulitis. 5. A 1.5 cm lipid rich right adrenal adenoma. No recommended imaging follow-up. Fleischner guidelines were followed.
--- NOTE | ~2023-07-21 | XR_ITS ---
EXAMINATION: XR HIP, RIGHT CLINICAL INFORMATION: Right hip pain after fall COMPARISON: None available. TECHNIQUE: Two views of the right hip.. AP pelvis. FINDINGS: AP pelvis: There is normal symmetry of both hip joints and SI joints with loss of bilateral hip joint space. No fracture seen involving the pelvic bones. AP and frog-leg views right hip reveals severe loss of right hip joint space with periarticular spurring. There is heterogeneous appearance of the humeral head question seizure osteopenia versus osteonecrosis. No obvious fracture visualized. XR/XR hip RT w PEL1V IMPRESSION: 1. Severe degenerative changes right hip joint. No visible acute fracture or dislocation seen. 2. There is heterogeneous appearance of the right femoral head question osteopenia versus osteonecrosis. 3. There is no acute fracture or dislocation involving the pelvis.
--- NOTE | ~2023-07-21 | CT_ITS ---
EXAMINATION: CT cervical spine wo IV con, CT head/brain wo IV con INDICATION INFORMATION: Reason for Exam Fall COMPARISON: CT head without contrast 05/10/2023, CT cervical spine 10/15/2022 TECHNIQUE: Separate noncontrast CT examinations of the head and cervical spine were performed. Coronal and sagittal images were created for each examination at the technologist workstation. This CT examination was performed using dose optimization techniques as appropriate, variously including the following: *Automated exposure control *Adjustment of mA and/or kV according to patient size (this includes techniques or standardized protocols for targeted exams where dose is matched to indication/reason for exam; i.e. extremities or head) *Use of iterative reconstruction technique DLP: 992.2 mGy-cm FINDINGS: Head: Streak artifact significantly limits evaluation of the posterior fossa. No acute osseous or soft tissue abnormality. The mastoids are clear. Right maxillary sinus retention cyst. Trace scattered paranasal sinus There is no evidence of acute intracranial hemorrhage or territorial infarction. No abnormal mass effect or midline shift is seen. to white matter differentiation is well preserved. No extra-axial fluid collections are identified. No hydrocephalus. Proportional prominence of the ventricles and sulcal spaces is consistent with moderate volume loss. Patchy periventricular and deep white matter hypoattenuation is consistent with moderate small vessel ischemic changes. Cervical spine: Stable alignment of the craniocervical junction with slight posterior subluxation of the lateral masses of C1 relative to C2 related to arthrosis of the atlantodental articulation with thinning and remodeling of the anterior arch of C1 and retrodental pannus formation. Normal alignment of the occipital condyles and C1. There is no evidence of acute cervical spine fracture. Vertebral bodies remain normal in height. Stable stepwise anterolisthesis of C3 on C4 and C4 on C5 as well as anterolisthesis of C7 on T1, on the basis of degenerative facet arthropathy. Stable multilevel cervical spondylosis. No pre- or paravertebral soft tissue abnormality is identified. Emphysematous changes at the lung apices. There are several nodules in the right lobe of the thyroid gland including one measuring up to 1.[address]/CT cervical spine wo IV con IMPRESSION: 1. No acute intracranial abnormality. Please note that streak artifact significantly limits assessment of the posterior fossa. 2. No cervical spine fracture or traumatic malalignment. 3. Multinodular right lobe of the thyroid gland with one nodule measuring 1.6 cm. Consider further assessment with nonemergent thyroid ultrasound if clinically appropriate.
--- NOTE | ~2023-07-21 | XR_ITS ---
EXAMINATION: XR CHEST CLINICAL INFORMATION: Cough. COMPARISON: Chest 05/10/2023. TECHNIQUE: Frontal view of the chest was obtained. FINDINGS: The lungs are well-expanded without acute pneumonic process. Heart size and progress clarities normal. There are multiple small calcified densities seen overlying both mid chest. Heart size is borderline enlarged. Pulmonary vascularity is normal. No gross bony abnormality seen. XR/XR chest 1V IMPRESSION: 1. No acute cardiopulmonary process seen. Multiple small calcified densities overlying both mid chest new since the last exam 05/10/2023, ? Artifact overlying the chest wall. Correlate with clinical exam.
--- NOTE | 2023-07-21 17:15 | ED_ITS ---
HPI - Fall General Chief Complaint: Fall Stated Complaint: FALL,MINOR ABRAISON ON CHEEK Time Seen by Provider: 07/21/23 17:07 Source: patient and EMS Mode of arrival: EMS History of Present Illness HPI Narrative: 88-year-old female who arrives from [facility] via EMS for complaints that she fell and landed on her bottom but is unable to fully recall the incident. Patient denies any blood thinners but states she feels a little bit dizzy, there is a noted superficial abrasion to the right cheek and otherwise reports some right hip pain but denies any pain anywhere else. Related Data Home Medications Medication Instructions Recorded Confirmed calcium carbonate 600 mg-vitamin 1 tab PO DAILY 04/08/22 06/16/23 D3 10 mcg (400 unit) tablet (Calcium 600 + D(3)) multivitamin 1 tab PO DAILY 04/08/22 06/16/23 albuterol sulfate 90 mcg/actuation 2 puff inhalation Q6H PRN wheezing 07/13/22 06/16/23 aerosol inhaler polyethylene glycol 3350 17 17 g PO BID PRN 11/18/22 06/16/23 gram/dose oral powder (Miralax) Previous Rx's Medication Instructions Recorded docusate sodium 100 mg capsule 100 mg PO BID #60 caps 10/10/22 (Colace) lactulose 10 gram/15 mL oral 15 ml PO DAILY PRN laxative effect 10/10/22 solution #90 mL acetaminophen 500 mg tablet 500 mg PO Q6H PRN fever or pain 10/13/22 (Tylenol Extra Strength) #14 tabs lidocaine 5 % topical patch 1 patch topical DAILY PRN pain #30 10/13/22 (Lidoderm) ea cetirizine 10 mg tablet 10 mg PO DAILY #90 tabs 12/10/22 leflunomide 10 mg tablet 10 mg PO DAILY #90 tabs 02/09/23 carvedilol 3.125 mg tablet (Coreg) 3.125 mg PO BID #60 tabs 06/08/23 fluticasone fur. 100 mcg-umeclid 1 ea inhalation DAILY #60 ea 06/08/23 62.5 mcg-vilant 25 mcg inhalat.powder (Trelegy Ellipta) celecoxib 200 mg capsule 200 mg PO BID #180 caps 06/10/23 sulfamethoxazole 800 1 tab PO BID 7 days #14 tabs 07/17/23 mg-trimethoprim 160 mg tablet (Bactrim DS) cefuroxime axetil 500 mg tablet 500 mg PO BID 5 days #10 tabs 07/22/23 Allergies Allergy/AdvReac Type Severity Reaction Status Date / Time Seasonal Allergies Allergy Intermediate congestion Verified 07/21/23 17:38 Review of Systems 2 Review of Systems: Pertinent positives and negatives as stated in HPI [facility] Past Medical History Source: nursing notes reviewed Onset Date is defined in the Problem List Problems that require an onset date and time if occurred within 24 hrs of arrival to the ED Aortic Dissection and Rupture; Neurologic impairment; Cardiopulmonary Arrest; Endotracheal Intubation; Insertion or Replacement of Mechanical Circulatory Assist Device Medical History Right hip pain Rheumatoid arthritis FHx: cholecystectomy Family History Family History Mother Acute arthritis Father No problems noted. Mother Acute arthritis Social History Social History Household Members Other:: Resident [facility] Housing: Other Housing Other:: [facility] Alcohol intake: current Alcohol intake frequency: holidays/special occasions only Alcohol type: wine Patient Tobacco Use Status: Former Tobacco user e-Cigarette/Vaping Use: Never Used Advance Directives: No Advance Directives Information Provided: No service: No Current occupational status: retired Current occupation: Former PT Cognitive needs: No Hearing needs: No Vision needs: Yes Physical Exam 2 Vital Signs: Vital Signs: Last Vital Signs Temp 98.0 F 07/21/23 23:40 Pulse 80 07/21/23 23:40 Resp 20 07/21/23 23:40 BP 109/64 07/21/23 23:40 Pulse Ox 94 07/21/23 23:40 O2 Del Method Room Air, Nasal C annula 07/21/23 23:40 O2 Flow Rate 2 07/21/23 23:40 Oxygen Flow Rate 2 07/21/23 17:33 BMI result Body Mass Index 22.7 VITAL SIGNS: Reviewed. GENERAL: Well developed, well nourished, in no acute distress. HEAD: Normocephalic/atraumatic EYES: PERRLA, EOMI EARS: Ext canals without abnormality NOSE: Nares patent bilateral OROPHARYNX: no oral lesions noted, posterior pharynx clear NECK: C-collar in place, no midline cervical spine tenderness to palpation or step-offs noted LUNGS: Normal breath sounds. No adventitious sounds or accessory muscle use. SpO2<90>2L nasal cannula at baseline; CHEST WALL: No crepitus, no deformity, no tenderness to palpation CARDIOVASCULAR: Regular rate and rhythm without noted murmurs, no JVD or lower extremity edema. ABDOMEN: Soft, non-tender, non-distended with bowel sounds. PELVIS: Stable, some tenderness noted at the iliac crest of the right hip MUSCULOSKELETAL: No tenderness, deformities, or effusions noted on gross inspection. EXTREMITIES: No cyanosis, clubbing or edema. SKIN: Inspection of the skin reveals no rashes NEUROLOGIC: Alert and oriented x 3. Strength and sensation to light touch were grossly intact x 4. Medications Administered Discontinued Medications Generic Name Dose Route Start Last Admin Trade Name Freq PRN Reason Stop Dose Admin Sodium Chloride 500 mls @ 999 mls/hr 07/21/23 21:30 07/21/23 22:20 Ns IV 07/21/23 22:00 Infused .Q31M LONNY Infusion Iohexol 85 ml 07/21/23 23:29 07/21/23 23:30 Iohexol 350 Mg/Ml 100 Ml Infus..Btl IV 07/21/23 23:30 85 ml ONCE ONE Administration Ondansetron HCl 4 mg 07/21/23 17:58 07/21/23 18:43 Ondansetron Odt 4 Mg Tab.Rapdis TRANSLINGU 07/21/23 17:59 4 mg ONCE ONE Administration Medical Decision Making Medical Decision Making [facility] Narrative: 88-year-old female with history and clinical presentation, DDX: Mechanical fall, possible hip fracture, will rule out intracranial hemorrhage or cervical spine injury. There are no focal findings. 1756: Nausea and vomiting 2039: Informed by nursing staff the patient is exceedingly unsteady on her feet and clearly is not a good candidate for return to the assisted care facility. I reviewed all investigations and hematologic indices are negative for leukocytosis or left shift, there is no anemia or thrombocytopenia. Chemistry indices do not demonstrate an ROSAURA and there is no electrolyte or liver enzyme derangements, there is a slight elevation of BNP and although patient has a history of COPD and is oxygen dependent she has not appear to be experiencing acute exacerbation at this time. On review of patient's documentation I have identify that she was diagnosed with urinary tract an infection on 07/15 and was started on Bactrim. Although on review of urine culture there was no growth. Viral testing today is negative for COVID-19/influenza. CT scan of the head negative for intracranial hemorrhage or mass effect and C- spine negative for any fracture or subluxation and otherwise my interpretation is in agreement with radiology's impression. Hip and pelvis x-ray negative for fracture or dislocation an abdomen pelvis CT scan given the patient continued to have nausea and vomiting episodes is negative for any acute findings to suggest obstruction or other intra-abdominal pathology. I suspect patient has a urinary tract infection and I am awaiting the straight cath results. 0145: Patient is noted to have urinary tract infection without SIRS reaction and started on cefuroxime, but given the degree of unsteadiness I have put in a case management consult for possible STI OR and have included a physical therapy consult as well. Differential Diagnosis Differential Diagnoses: The differential diagnosis associated with the presentation includes Please see the discussion above Admission/Observation Consideration of admission/observation: Escalation of care including admission/observation considered Please see the discussion above Consult Healthcare Provider Management of the patient was discussed with: Book Agent Please see the discussion above Lab Data MDM Lab Attestation statement: I reviewed the patient's lab results. Please see the discussion above 07/21/23 21:14 07/21/23 21:14 Labs: Lab Results 07/21/23 07/21/23 07/22/23 Range/Units 18:55 21:14 01:32 WBC 8.3 (4.8-10.8) X10*3/uL RBC 4.33 (4.20-5.50) X10*6/uL Hgb 13.2 (12.0-16.0) g/dl Hct 41.2 (37.0-47.0) % MCV 95.2 (80.0-98.0) fL MCH 30.5 (27.0-33.0) pg MCHC 32.0 (31.0-35.0) g/dl RDW 14.2 (11.0-16.0) % Plt Count 213 (160-400) X10*3/uL MPV 10.6 (9.4-12.3) fL Immature Gran % (Auto) 0.2 (0.0-0.4) % Neut % (Auto) 63.7 (45-73) % Lymph % (Auto) 15.4 L (20-40) % [place] % (Auto) 12.5 H (2-11) % Eos % (Auto) 7.6 H (0-4) % Baso % (Auto) 0.6 (0-2) % Lymph # (Auto) 1.3 (1.2-4.9) X10*3/uL [place] # (Auto) 1.0 (0.1-1.2) X10*3/uL Eos # (Auto) 0.6 H (0.0-0.4) X10*3/uL Baso # (Auto) 0.1 (0.0-0.2) X10*3/uL Abs Immat Gran (auto) 0.02 (0.00-0.03) X10*3/uL Absolute Neuts (auto) 5.3 (2.0-8.3) x10*3/uL Absolute Nucleated RBC 0.000 (0.0-0.012) X10*3/uL Nucleated RBC % (auto) 0.0 (0.0-0.2) /100WBC Sodium 141 (135-145) mmol/L Potassium 4.6 (3.3-5.1) mmol/L Chloride 107 (96-108) mmol/L Carbon Dioxide 25 (22-29) mmol/L Anion Gap 14 (12-20) BUN 19 H (9-16) mg/dL Creatinine 0.89 (0.5-1.4) mg/dL Estim Creat Clear Calc 32.9 Estimated GFR 60 Random Glucose 119 H (60-115) mg/dL Calcium 9.4 (8.4-10.2) mg/dL Total Bilirubin 0.3 (0.0-1.0) mg/dL AST 23 (5-31) U/L ALT 12 (0-31) U/L Alkaline Phosphatase 80 (39-117) U/L Troponin I High Sens 8.3 D (<3.5-17.0) ng/L B-Natriuretic Peptide 106 H (<100) pg/mL Total Protein 6.9 (6.5-8.0) g/dL Albumin 3.9 (3.5-5.0) g/dL Urine Color Yellow Urine Appearance Clear Urine pH 7.0 (5.0-9.0) Ur Specific [place] >= 1.030 H (1.005-1.025) Urine Protein Negative (Neg-Trace) mg/dL Urine Glucose (UA) Negative (Negative) mg/dL Urine Ketones Trace (Negative) mg/dL Urine Blood Negative (Negative) Urine Nitrite Negative (Negative) Ur Leukocyte Esterase Moderate (2+) H (Negative) COVID-19 (JOHNATHAN) Negative (Negative) COVID-19 Clin Com See Note Influenza Type A (GLYNN) Negative (Negative) Influenza Type B (GLYNN) Negative (Negative) Influenza A & B Note See Note Independent Interpretation I performed an independent interpretation of an: EKG Interpretation: Sinus rhythm with PACs, HR-76, no STEMI, MI/QRS/QTC is within normal limits. Radiology Impression Discussion of test interpretation with radiology: I have reviewed the radiologist's reading. Radiologist Impression: Please see the discussion above External Record Review External record reviewed: Outpatient record, Prior outpatient labs and Prior outpatient radiology Chronic Conditions Patient?s care impacted by: Other COPD Critical Care Time Critical Care Time Critical Care Time: Yes Total Critical Care Time: 45 Attestation: I personally attest to this time spent taking care of the patient. Discharge Plan Discharge Clinical Impression: Fall, Urinary tract infection Patient Disposition: Still a Patient Instructions: Fall Prevention for Older Adults (ED), Urinary Tract Infection in Older Adults (ED) Prescriptions: New cefuroxime axetil 500 mg tablet 500 mg PO BID 5 Days Qty: 10 0RF No Action cetirizine 10 mg tablet 10 mg PO DAILY Qty: 90 3RF leflunomide 10 mg tablet 10 mg PO DAILY Qty: 90 1RF celecoxib 200 mg capsule 200 mg PO BID Qty: 180 1RF sulfamethoxazole-trimethoprim [Bactrim DS] 800-160 mg tablet 1 tab PO BID 7 Days Qty: 14 0RF acetaminophen [Tylenol Extra Strength] 500 mg tablet 500 mg PO Q6H PRN (Reason: fever or pain) Qty: 14 0RF lidocaine [Lidoderm] 5 % adhesive patch,medicated 1 patch topical DAILY MDD remove after 12 hours PRN (Reason: pain) Qty: 30 0RF Rx Instructions: leave on most painful area for up to 12 hrs docusate sodium [Colace] 100 mg capsule 100 mg PO BID Qty: 60 0RF lactulose 10 gram/15 mL solution 15 ml PO DAILY PRN (Reason: laxative effect) Qty: 90 0RF carvedilol [Coreg] 3.125 mg tablet 3.125 mg PO BID Qty: 60 5RF Rx Instructions: must administer with a meal/food Trelegy Ellipta 100-62.5-25 mcg blister with device 1 ea inhalation DAILY Qty: 60 6RF multivitamin Tablet 1 tab PO DAILY calcium carbonate-vitamin D3 [Calcium 600 + D(3)] 600 mg-10 mcg (400 unit) tablet 1 tab PO DAILY albuterol sulfate 90 mcg/actuation HFA aerosol inhaler 2 puff inhalation Q6H PRN (Reason: wheezing) polyethylene glycol 3350 [Miralax] 17 gram/dose powder 17 g PO BID PRN
[2023-07-21 17:18] VITALS: BP 113/62; PULSE 80; O2SAT 94
[2023-07-21 17:33] VITALS: BP 132/67; PULSE 71; RESP 16; TEMP 36.6; O2SAT 94; BMI 22.7
--- NOTE | 2023-07-21 17:58 | ECG_ITS ---
Test Reason : FALL Blood Pressure : / mmHG Vent. Rate : 076 BPM Atrial Rate : 076 BPM P-R Int : 156 ms QRS Dur : 082 ms QT Int : 410 ms P-R-T Axes : 035 -24 019 degrees QTc Int : 461 ms Sinus rhythm with Premature atrial complexes Cannot rule out Anterior infarct (cited on or before 21-JUL-2023) Abnormal ECG When compared with ECG of 10-MAY-2023 19:17, Premature atrial complexes are now Present Questionable change in initial forces of Septal leads Nonspecific T wave abnormality, improved in Anterolateral leads QT has lengthened Referred By: Iris Hernandez Electronically Signed By:MACEY VILLALOBOS MD
[2023-07-21] MEDS: Ondansetron ODT 4 MG TAB.RAPDIS TRANSLINGU (18:43)
[2023-07-21 19:20] LABS: COVID-19 Test Negative (Negative); IDNOW Serial# 08D9AD1C; IDNOW Serial# 152EDE1D; Influenza A Negative (Negative); Influenza B2 Negative (Negative)
[2023-07-21 19:45] VITALS: BP 143/80; PULSE 79; RESP 19; TEMP 36.9; O2SAT 90
--- NOTE | 2023-07-21 20:54 | MHC.EDTECH ---
Patient inc so patient changed and repositioned
[2023-07-21 21:18] LABS: MANUAL DIFF FLAG NO
[2023-07-21 21:20] LABS: Basophils Absolute Auto 0.1 X10*3/uL (0.0-0.2); Basophils Percent Auto 0.6 % (0-2); Eosinophils Absolute Auto 0.6 X10*3/uL (0.0-0.4); Eosinophils Percent Auto 7.6 % (0-4); Hematocrit 41.2 % (37.0-47.0); Hemoglobin 13.2 g/dl (12.0-16.0); Imm Gran Abs Auto 0.02 X10*3/uL (0.00-0.03); Imm Gran Pct Auto 0.2 % (0.0-0.4); Lymphocytes Absolute Auto 1.3 X10*3/uL (1.2-4.9); Lymphocytes Percent Auto 15.4 % (20-40); Mean Corpuscular Hemoglobin 30.5 pg (27.0-33.0); Mean Corpuscular Volume 95.2 fL (80.0-98.0); Mean Platelet Volume 10.6 fL (9.4-12.3); Monocytes Percent Auto 12.5 % (2-11); Neutrophils Absolute Auto 5.3 x10*3/uL (2.0-8.3); Neutrophils Percent Auto 63.7 % (45-73); Platelet Count 213 X10*3/uL (160-400); Red Blood Count 4.33 X10*6/uL (4.20-5.50); Red Cell Distribution Width 14.2 % (11.0-16.0); White Blood Count 8.3 X10*3/uL (4.8-10.8)
[2023-07-21] MEDS: 0.9 % Sodium Chloride 500 ML 999 ML IV (21:36)
--- NOTE | 2023-07-21 21:40 | MHC.EDTECH ---
Patient put on camera 34 due to fall risk
[2023-07-21 21:41] LABS: Alanine Aminotransferase 12 U/L (0-31); Albumin Level 3.9 g/dL (3.5-5.0); Alkaline Phosphatase 80 U/L (39-117); Anion Gap 14 (12-20); Aspartate Amino Transferase 23 U/L (5-31); Bilirubin Total 0.3 mg/dL (0.0-1.0); Blood Urea Nitrogen 19 mg/dL (9-16); Calcium 9.4 mg/dL (8.4-10.2); Carbon Dioxide 25 mmol/L (22-29); Chloride 107 mmol/L (96-108); Creatinine Clr Calc Pharmacy 32.9; Estimated Glomerular Filt Rate 60; Glucose Random 119 mg/dL (60-115); Potassium 4.6 mmol/L (3.3-5.1); Sodium 141 mmol/L (135-145); Total Protein 6.9 g/dL (6.5-8.0)
[2023-07-21 21:44] LABS: B Type Natriuretic Peptide 106 pg/mL (<100)
[2023-07-21 21:48] LABS: Troponin-I High Sensitivity 8.3 ng/L (<3.5-17.0)
--- NOTE | 2023-07-21 23:15 | PC.NURSE ---
This appeals writer assumed care of this Pt at 2300. Pt A&O to self, denies any pain. Pt was placed on 2L via NC, pt purse lip breathing, SpO2 95%, RR 20, lung sounds clear. Pt high fall risk, Camera in place.
[2023-07-21] MEDS: iohexoL 350 MG/ML 100 ML INFUS..BTL 85 ML IV (23:30)
[2023-07-21 23:40] VITALS: BP 109/64; PULSE 80; RESP 20; TEMP 36.7; O2SAT 94
[2023-07-22] VITALS (8 sets, daily range): BP systolic 98–165; BP diastolic 56–96; PULSE 69–100; RESP 16–22; TEMP 36.5–37; O2SAT 91–96
--- NOTE | 2023-07-22 01:38 | PC.NURSE ---
Urine sample collected and sent to lab.
[2023-07-22 01:40] LABS: Appearance Urine Clear; Color Urine Yellow; Glucose Urine UA Negative (Negative); Leukocyte Esterase Urine Moderate (2+) (Negative); Nitrite Urine Negative (Negative); Specific Gravity - Urine >= 1.030 (1.005-1.025); UMIC TRIGGER UACC YES; Urine Blood Negative (Negative); Urine Ketones Trace mg/dL (Negative); Urine Protein Negative (Neg-Trace)
[2023-07-22 01:45] LABS: Bacteria Urine None Seen (None Seen); Hyaline Casts Urine 0-2 /LPF (0-2); RBC Urine 0-2 /HPF (0-2); Squamous Epithelial Cell Urine 0-2 /HPF (0-2); UACC Culture Trigger YES; WBC Urine 21-50 /HPF (0-5)
[2023-07-22] MEDS: cefuroxime axetiL 500 MG TABLET PO (02:25)
--- NOTE | 2023-07-22 02:28 | PC.NURSE ---
Med rec not able to be done at this time, T/W called [facility], spoke to Ramona who fill relay message to morning nurse (Nicol Hollis), states Pt is in the independent living.
--- NOTE | 2023-07-22 03:26 | P.HPHOSP_ITS ---
History of Present Illness Date of Service: 07/22/23 Attending physician on admission: Barrie Jordan Chief Complaint: Fall Heidy Munoz is an 88 years old woman with past medical history significant for COPD on home O2, RA and chronic systolic congestive heart failure ulcers she sustained a fall. HPI was limited as the patient is quite confused. HPI was obtained from chart and ED provider.. She seems to be upset. I do not see history of dementia. Patient did not report head trauma. She does complain of generalized muscular pain. According to notes the patient was having nausea and vomiting. Also, patient was found by staff very unsteady on her feet. In the ED, she was found to have normal vital signs. She is on 2 L of supplemental oxygen via nasal cannula. Blood workup showed no leukocytosis. Creatinine is normal. There are no significant electrolyte imbalances. Urinalysis consistent with urinary tract infection. She underwent CT scans of the abdomen, pelvis, chest, head and C-spine. They are all unremarkable except for much of the lower right lobe of the thyroid gland(1.6). ED tx: Zofran IV and Ceftin 500 mg p.o. x1. Review of Systems 2 Review of Systems: Limited due to patient's confusion. [facility] Medical History Right hip pain Rheumatoid arthritis FHx: cholecystectomy Family History Mother Acute arthritis Father No problems noted. Mother Acute arthritis Social History Household Members Other:: Resident [place] [facility] Housing: Other Housing Other:: [facility] Alcohol intake: current Alcohol intake frequency: holidays/special occasions only Alcohol type: wine Patient Tobacco Use Status: Former Tobacco user e-Cigarette/Vaping Use: Never Used Advance Directives: No Advance Directives Information Provided: No service: No Current occupational status: retired Current occupation: Former PT Cognitive needs: No Hearing needs: No Vision needs: Yes Meds Allergies Allergy/AdvReac Type Severity Reaction Status Date / Time Seasonal Allergies Allergy Intermediate congestion Verified 07/21/23 17:38 Active Medications: Current Medications Acetaminophen (Acetaminophen 325 Mg Tablet) 650 mg PO Q6H PRN PRN Reason: Pain, Mild (Pain Scale 1-3) Heparin Sodium (Porcine) (Heparin Sodium,Porcine 5,000 Unit/Ml Vial) 5,000 unit SUBCUT Q12H [facility] Ceftriaxone Sodium 1 gm/ (Sodium Chloride) 50 mls @ 100 mls/hr IV DAILY [facility] Sodium Chloride (0.9 % Sodium Chloride Flush 3 Ml Syringe) 3 ml IVFLUSH QSHIFT [facility] Home Medications Medication Instructions Recorded Confirmed Last Taken Type calcium carbonate 600 mg-vitamin 1 tab PO DAILY 04/08/22 06/16/23 Unknown History D3 10 mcg (400 unit) tablet (Calcium 600 + D(3)) multivitamin 1 tab PO DAILY 04/08/22 06/16/23 Unknown History albuterol sulfate 90 mcg/actuation 2 puff inhalation Q6H PRN wheezing 07/13/22 06/16/23 Unknown History aerosol inhaler polyethylene glycol 3350 17 17 g PO BID PRN 11/18/22 06/16/23 Unknown History gram/dose oral powder (Miralax) Physical Exam 2 Vital Signs and Narrative: Vital Signs: Last Vital Signs Temp 97.9 F 07/22/23 02:00 Pulse 85 07/22/23 02:00 Resp 20 07/22/23 02:00 BP 131/80 07/22/23 02:00 Pulse Ox 95 07/22/23 02:00 O2 Del Method Nasal Cannula 07/22/23 02:00 O2 Flow Rate 2 07/22/23 02:00 Oxygen Flow Rate 2 07/21/23 17:33 BMI result Body Mass Index 22.7 Constitutional - Awake and Alert, No apparent distress, confused. Eyes - PERRL, EOMI Heart - RRR, positive murmur. Respiratory - Decreased breath sound bilaterally. No wheezing, rhonchi or crackles. Gastrointestinal - NT / ND; +BS; No rebound or guarding Extremities - no calf tenderness bilaterally, no swelling Musculoskeletal - Normal inspection, normal ROM Skin - Warm/Dry Neurological - Alert & oriented x1. Results Labs 07/21/23 21:14 07/21/23 21:14 Labs: Laboratory Results - last 24 hr 07/21/23 07/21/23 07/22/23 18:55 21:14 01:32 MCV 95.2 MCH 30.5 MCHC 32.0 RDW 14.2 Plt Count 213 MPV 10.6 Immature Gran % (Auto) 0.2 Neut % (Auto) 63.7 Lymph % (Auto) 15.4 L [place] % (Auto) 12.5 H Eos % (Auto) 7.6 H Baso % (Auto) 0.6 Lymph # (Auto) 1.3 [place] # (Auto) 1.0 Eos # (Auto) 0.6 H Baso # (Auto) 0.1 Abs Immat Gran (auto) 0.02 Absolute Neuts (auto) 5.3 Absolute Nucleated RBC 0.000 Nucleated RBC % (auto) 0.0 Anion Gap 14 Estim Creat Clear Calc 32.9 Estimated GFR 60 Random Glucose 119 H Calcium 9.4 Total Bilirubin 0.3 AST 23 ALT 12 Alkaline Phosphatase 80 B-Natriuretic Peptide 106 H Total Protein 6.9 Albumin 3.9 Urine Color Yellow Urine Appearance Clear Urine pH 7.0 Ur Specific [place] >= 1.030 H Urine Protein Negative Urine Glucose (UA) Negative Urine Ketones Trace Urine Blood Negative Urine Nitrite Negative Ur Leukocyte Esterase Moderate (2+) H Urine RBC 0-2 Urine WBC 21-50 H Ur Squamous Epith Cells 0-2 Urine Bacteria None Seen Hyaline Casts 0-2 COVID-19 (JOHNATHAN) Negative COVID-19 Clin Com See Note Influenza Type A (GLYNN) Negative Influenza Type B (GLYNN) Negative Influenza A & B Note See Note Imaging Radiologist's Impressions: Impressions Cervical Spine CT 07/21/23 17:43 IMPRESSION: 1. No acute intracranial abnormality. Please note that streak artifact significantly limits assessment of the posterior fossa. 2. No cervical spine fracture or traumatic malalignment. 3. Multinodular right lobe of the thyroid gland with one nodule measuring 1.6 cm. Consider further assessment with nonemergent thyroid ultrasound if clinically appropriate. Head CT 07/21/23 17:43 IMPRESSION: 1. No acute intracranial abnormality. Please note that streak artifact significantly limits assessment of the posterior fossa. 2. No cervical spine fracture or traumatic malalignment. 3. Multinodular right lobe of the thyroid gland with one nodule measuring 1.6 cm. Consider further assessment with nonemergent thyroid ultrasound if clinically appropriate. Hip/Pelvis X-Ray 07/21/23 18:27 IMPRESSION: 1. Severe degenerative changes right hip joint. No visible acute fracture or dislocation seen. 2. There is heterogeneous appearance of the right femoral head question osteopenia versus osteonecrosis. 3. There is no acute fracture or dislocation involving the pelvis. Chest X-Ray 07/21/23 21:20 IMPRESSION: 1. No acute cardiopulmonary process seen. Multiple small calcified densities overlying both mid chest new since the last exam 05/10/2023, ? Artifact overlying the chest wall. Correlate with clinical exam. Abdomen/Pelvis CT 07/21/23 23:31 IMPRESSION: 1. No acute intra-abdominal or intrapelvic abnormalities are identified. 2. Moderate-sized hiatal hernia. 3. Bilateral inguinal hernias containing loops of small bowel without evidence of obstruction or strangulation. 4. Moderate colonic diverticulosis without evidence of acute diverticulitis. 5. A 1.5 cm lipid rich right adrenal adenoma. No recommended imaging follow-up. Fleischner guidelines were followed. Assessment and Plan (1) Urinary tract infection: Qualifiers: Urinary tract infection type: acute cystitis Hematuria presence: w ithout hematuria Qualified Code(s): N30.00 - Acute cystitis without hematuria Status: Acute (2) Fall: Qualifiers: Encounter type: initial encounter Qualified Code(s): W19.XXXA - Unspecified fall, initial encounter Status: Acute Plan Heidy Munoz is an 88 years old woman admitted with: * Acute encephalopathy secondary to urinary tract infection. Admit to hospitalist service. Start empiric IV antibiotic therapy. Blood and urine cultures were obtained -will follow results. * S/p fall. Fall precautions. PT evaluation. * Chronic obstructive pulmonary disease, no exacerbation. Continue supplemental oxygen to keep oxygen saturation above 90%. Bronchodilator therapy as needed. Continue Trelegy (or alternative). * Chronic systolic congestive heart failure, not decompensated. Continue Coreg (pt takes diuretics at home? -will await for home confirmation by pharmacy). * Rheumatoid arthritis. Continue Celebrex. DVT prophylaxis: Heparin subcu Code Status: Presumed full code. Patient when the hospitalization for least 2 midnight for urinary tract infection treatment in the setting of acute encephalopathy. Patient will need empiric IV antibiotic therapy a physical therapy evaluation. Quality Stroke Does the patient have a stroke diagnosis?: No VTE Prior VTE?: No VTE Risk Level:: Medical - moderate - high VTE Device Contraindication: N/A - Device Ordered VTE Drug Contraindication: N/A - Med Ordered
[2023-07-22 03:40] LABS: Lactic Acid 1.1 mmol/L (0.5-2.0)
--- NOTE | 2023-07-22 03:48 | PC.NURSE ---
Pt incontinent of urine, dime size red area noted to coccyx area. Incontinent care provided, Pt repositioned. Report given to Tonie, Pt will be transported by corrosion control technician to ED overflow bed 9.
--- NOTE | 2023-07-22 07:30 | PC.NURSE ---
PT IS A/O. PT DISLODGED HER #20 IV WHICH WAS FOUND ON THE FLOOR. PT WAS ATTEMPTING TO GET OOB TO USE THE BATHROOM. PT ASSISTED X 1 WITH WALKER TO COMMODE. SM AMT OF SLIGHLY GREENISH COLOR BM NOTED. PT WAS GIVEN ADL'S AND RETURNED TO BED WITH BED ALARM AND CAMERA IN USE.
[2023-07-22] MEDS: carvediloL 3.125 MG TABLET PO ×2 (08:09→16:51)
[2023-07-22] MEDS: Heparin Sodium,Porcine 5,000 UNIT/ML VIAL 5000 UNIT SUBCUT ×2 (08:09→19:34)
[2023-07-22] MEDS: Celecoxib 200 MG CAPSULE PO ×2 (08:09→19:35)
--- NOTE | 2023-07-22 08:23 | PC.NURSE ---
PT AT 50% OF BREAKFAST. HOB UP. WILL CONTINUE TO MONITOR.
--- NOTE | 2023-07-22 09:00 | PC.NURSE ---
PT IS A/O X 1 NO SOB/JUDAH NOTED SPEAKS IN FULL SENTENCES. BED ALARM AND CAMERA IN USE. PT IS ADMITTED TO HOSP.
[2023-07-22] MEDS: Fluticasone/Umeclidinium/Vilanterol 100/62.5/25 BLST.W.DEV 1 PUFF INHALE (09:03)
--- NOTE | 2023-07-22 09:50 | PC.NURSE ---
PT'S DAUGHTER AND SON-IN-LAW AT BEDSIDE.
--- NOTE | 2023-07-22 10:00 | PC.NURSE ---
SMALL OPEN AREA NOTED ON L SIDE OF PT'S BUTTOCKS. DAUGHTER AT BEDSIDE STATES THAT THE PT CAME FROM HOME WITH THIS OPEN AREA AND AT HOME THEY NORMALLY USE DESITIN CREAM ON OPEN AREA. PICTURE TAKEN OF OPEN AREA.
--- NOTE | 2023-07-22 10:51 | PHA.MEDREC ---
Pharmacy Consult ? Medication Reconciliation Pharmacy has completed the medication reconciliation. Pt poor historian of medications; doesn't answer questions appropriately. Called patient's daughter Tonie and was given a home med list.
[2023-07-22] MEDS: cefEPime HCl 1 GM in 0.9 % Sodium Chloride 50 ML IV ×2 (10:54→19:34)
--- NOTE | 2023-07-22 11:24 | PC.NURSE ---
DR. Wilson IS AT BEDSIDE UPDATING FAMILY MEMBERS ON PT CARE/ADMISSION.
--- NOTE | 2023-07-22 12:07 | PM.EVENT ---
Event Note Date of Service: 07/22/23 Event Note: Seen and evaluated this morning with family at [facility] Denies any feve ror chills More alert and interactive but still confused Pending urine and blood cultures Change Abx to Cefepime. Time Spent With Patient Time: Total time managing care of this patient today ____ minutes.
--- NOTE | 2023-07-22 12:25 | MHC.CM.PN ---
Met with patient, daughter Tonie and son in law Bryan. Patient lives at [facility], ambulates with a cane/walker, and has home health aides 2-3 times per day. PCP verified. Patient has a HCP. May have a copy at PCP's office. Patient received 6 Moderna and 1 Pfizer vaccines. IMM explained and signed. Physical therapy eval is pending. If STR is rec, [place] would be 1st choice. Referral made via [facility] so they can follow. Continue to monitor for d/c needs.
--- NOTE | 2023-07-22 13:05 | PC.NURSE ---
PHYSICAL THERAPY AT BEDSIDE.
--- NOTE | 2023-07-22 13:39 | PC.NURSE ---
while with physical therapy, pt had a BM and was cleaned up. brief was disposed before this RN was able to examine it to determine if a sample was needed for c. diff testing. Key RN also aware. will wait on next BM from pt.
--- NOTE | 2023-07-22 14:31 | PC.NURSE ---
PT ATE 40% OF LUNCH AFTER WHICH PT REQUESTED TO GO BACK TO BED. FAMILY CONTINUES TO BE AT BEDSIDE. BED ALARM/CAMERA ARE IN USE. WILL CONTINUE TO MONITOR
--- NOTE | 2023-07-22 14:42 | MHC.EDTECH ---
PT vitals done, PT trying to get up out of bed, slight confusion. Family present with her
--- NOTE | 2023-07-22 15:22 | PC.NURSE ---
pt attempting 2 times to get out of bed. bed alarm and sitter camera went off. pt pleasantly confused, thinks she needs to get the house ready for company. pt redirectable, sitting at side of bed now with family and tech at bedside.
--- NOTE | 2023-07-22 15:26 | MHC.EDTECH ---
pt tried getting out of bed sat and spoke with her for a few minutes and pt layed back down..bed alarm was put back on.
--- NOTE | 2023-07-22 15:33 | PC.NURSE ---
admission report complete, pt awaiting transport to inpatient room.
[2023-07-22] MEDS: 0.9 % Sodium Chloride Flush 3 ML SYRINGE IVFLUSH ×2 (16:50→19:35)
--- NOTE | 2023-07-22 17:20 | HO.WOUND ---
Wound Consult: Initial 88yr old F?admitted to [facility] on 07/22 - See progress notes and H&P for detailed history.? Wound consult placed for sacral wound POA .? Patient agreeable to assessment and photo documentation.? Arrival to bedside pt is pleasant and appears to be pleasantly restless in bed. She was noted to be wearing a brief and noted to have incontinence of stool - incontinence care provided and brief removed. Coccyx wound assessed and pictured and detailed below. Patients daughter at bedside she reports her sister in law who is also a nurse treats her mothers coccyx wound with what she described as Desitin / Zinc cream. Discussed Purewick with direct care nurse - advised direct care team may attempt use but given patients restless state in bed and frequent movement may not be candidate - option for barrier cream for prevention and dry flow pads between legs and under patient. Coccyx Etiology:Sacrum Stage 2 Pressure Injury??Present on Admission Measurements: see charting for details Wound Bed: dry red partial thickness tissue loss Drainage / Odor: None noted Edges: ? irregular and dry desquamation [place] wound: Red pink intact tissue - slow to zac - ? No Induration, Fluctuance or Warmth noted Pain: denies Goals of Treatment: ? Off Load Pressure - protect from moisture and friction with foam dressing and barrier cream Recommendations: 1. Turn and Reposition every 2 hours and as needed for patient comfort.? Use pillows or wedges to support off loading positions. 2. Off Load all bony prominences with use of pillows and heel boots if needed.? Apply Preventative foams where needed. ? 3. Monitor for incontinence and moisture control, use barrier creams when needed for prevention and treatment. 4. Provide adequate and supplemental nutrition.? 5. Order or Continue low air loss mattress. 6. Perineal and Perianal - Discontinue Brief Use - Cleanse with PH balance spray or wipes, pat dry. ?Apply thin layer of Clear barrier cream [employer] to perineum and perianal tissue for prevention - Reapply thin layer PRN after each episode of incontinence. 7. Coccyx - Off Load Pressure - Apply Sacral foam dressing peel back and assess Q shift and change every 3 days and PRN. Re-consult wound care Nurse for wound deterioration or wound changes.
[2023-07-22] MEDS: ondansetron HCL 4 MG/2 ML VIAL IVPUSH (18:06)
[2023-07-22] MEDS: Acetaminophen 325 MG TABLET 650 MG PO (19:40)
[2023-07-23] MEDS: OLANZapine 10 MG VIAL 2.5 MG IM (00:20)
[2023-07-23] MEDS: Haloperidol Lactate 5 MG/ML VIAL 2 MG IM (02:09)
[2023-07-23] MEDS: Acetaminophen 325 MG TABLET 650 MG PO (03:46)
[2023-07-23 04:00] VITALS: BP 142/82; PULSE 85; RESP 16; TEMP 36.2; O2SAT 97
--- NOTE | 2023-07-23 04:23 | PC.NURSE ---
Pt seen at start of the shift alert and oriented to self only, confused and impulsive, redirected, reassured and rounded frequently, needs met, meds given, bed alarm on. At 2300, pt become more and more impulsive and unredirectible, Dr. Olson was notified, Zyprexa IM given, pt was encouraged to sleep. At 0149 , pt still hasn't settled down, restless and impulsive, Dr. Olson was updated, Haldol IM given, no effect at all, frequent rounding done, sitter placed.
[2023-07-23 06:17] LABS: MANUAL DIFF FLAG NO
[2023-07-23 06:43] LABS: Basophils Absolute Auto 0.1 X10*3/uL (0.0-0.2); Basophils Percent Auto 0.6 % (0-2); Eosinophils Absolute Auto 1.1 X10*3/uL (0.0-0.4); Eosinophils Percent Auto 14.3 % (0-4); Hematocrit 39.8 % (37.0-47.0); Hemoglobin 12.8 g/dl (12.0-16.0); Imm Gran Abs Auto 0.01 X10*3/uL (0.00-0.03); Imm Gran Pct Auto 0.1 % (0.0-0.4); Lymphocytes Percent Auto 25.4 % (20-40); Mean Corpuscular HGB Conc 32.2 g/dl (31.0-35.0); Mean Corpuscular Hemoglobin 30.8 pg (27.0-33.0); Mean Corpuscular Volume 95.7 fL (80.0-98.0); Mean Platelet Volume 11.4 fL (9.4-12.3); Monocytes Absolute Auto 1.4 X10*3/uL (0.1-1.2); Neutrophils Absolute Auto 3.2 x10*3/uL (2.0-8.3); Neutrophils Percent Auto 41.6 % (45-73); Platelet Count 210 X10*3/uL (160-400); Red Blood Count 4.16 X10*6/uL (4.20-5.50); Red Cell Distribution Width 14.3 % (11.0-16.0); White Blood Count 7.8 X10*3/uL (4.8-10.8)
[2023-07-23 06:48] LABS: Alanine Aminotransferase 13 U/L (0-31); Albumin Level 3.6 g/dL (3.5-5.0); Alkaline Phosphatase 80 U/L (39-117); Anion Gap 11 (12-20); Aspartate Amino Transferase 24 U/L (5-31); Bilirubin Total 0.3 mg/dL (0.0-1.0); Blood Urea Nitrogen 15 mg/dL (9-16); Calcium 8.8 mg/dL (8.4-10.2); Carbon Dioxide 28 mmol/L (22-29); Chloride 107 mmol/L (96-108); Creatinine Clr Calc Pharmacy 32.9; Estimated Glomerular Filt Rate 60; Glucose Random 79 mg/dL (60-115); Potassium 3.7 mmol/L (3.3-5.1); Sodium 142 mmol/L (135-145); Total Protein 6.4 g/dL (6.5-8.0)
--- NOTE | 2023-07-23 07:06 | P.CDIM_ITS ---
PROVIDER RESPONSE TEXT: To clarify, the appropriate diagnosis supported by the clinical indicators: O2 dependent QUERY TEXT: PHYSICIAN'S DOCUMENTATION REQUEST Date of Query: 07/22/2023 12:27 PM EST Patient Name: Heidy Munoz Admit Date: 07/22/2023 Dear Mary Kay Contreras, A review of the medical record indicates additional documentation may be needed. Please review below and update the documentation accordingly. Clinical Indicators: H&P: COPD on home O2 placed on 2L of supplemental oxygen via nasal cannula. Decreased breath sound bilaterally. Please clarify which of the following accurately represents the patient's respiratory status: Chronic respiratory failure O2 dependent Other (explain) Clinically unable to determine (explain) Thank you, Joanne Gonzales, CCS, CDIS Use of terms such as suspected, likely, concern for, or probable (associated with a specific diagnosi s that is being evaluated, monitored, or treated as if it exists) are acceptable and can be coded in the inpatient se tting, when documented at the time of discharge. Please use your independent medical judgment in providing your response. THIS QUERY IS PART OF THE PERMANENT MEDICAL RECORD
--- NOTE | 2023-07-23 07:06 | P.CDIM_ITS ---
PROVIDER RESPONSE TEXT: To clarify, the appropriate diagnosis supported by the clinical indicators: Toxic QUERY TEXT: PHYSICIAN'S DOCUMENTATION REQUEST Date of Query: 07/22/2023 12:32 PM EST Patient Name: Heidy Munoz Admit Date: 07/22/2023 Dear Mary Kay Contreras, A review of the medical record indicates additional documentation may be needed. Please review below and update the documentation accordingly. Clinical Indicators: H&P: Acute encephalopathy secondary to urinary tract infection Start IV empiric IV antibiotic therapy. Patient is confused, weak. Based on the above, please further specify, in the Progress Notes, the known or suspected type of the documented encephalopathy: Metabolic Toxic Toxic metabolic Other (explain) Clinically unable to determine (explain) Thank you, Joanne Gonzales, CCS, CDIS Use of terms such as suspected, likely, concern for, or probable (associated with a specific diagnosi s that is being evaluated, monitored, or treated as if it exists) are acceptable and can be coded in the inpatient se tting, when documented at the time of discharge. Please use your independent medical judgment in providing your response. THIS QUERY IS PART OF THE PERMANENT MEDICAL RECORD
[2023-07-23 07:18] VITALS: BP 136/79; PULSE 80; RESP 16; TEMP 36.4; O2SAT 94
[2023-07-23] MEDS: Fluticasone/Umeclidinium/Vilanterol 100/62.5/25 BLST.W.DEV 1 PUFF INHALE (08:22)
[2023-07-23 08:24] VITALS: PULSE 74; RESP 16; O2SAT 93
[2023-07-23] MEDS: cefEPime HCl 1 GM in 0.9 % Sodium Chloride 50 ML IV (08:45)
[2023-07-23] MEDS: 0.9 % Sodium Chloride Flush 3 ML SYRINGE IVFLUSH ×3 (08:45→19:49)
[2023-07-23] MEDS: Multivitamin TABLET 1 TAB PO (08:46)
[2023-07-23] MEDS: Celecoxib 200 MG CAPSULE PO ×2 (08:46→19:49)
[2023-07-23] MEDS: carvediloL 3.125 MG TABLET PO ×2 (08:46→17:07)
[2023-07-23] MEDS: Leflunomide 10 MG TABLET PO (08:46)
[2023-07-23] MEDS: Heparin Sodium,Porcine 5,000 UNIT/ML VIAL 5000 UNIT SUBCUT ×2 (08:46→19:49)
--- NOTE | 2023-07-23 11:39 | P.PNIM_ITS ---
Subjective Subjective Date of Service: 07/23/23 Interval History: Seen and evaluated this morning Alert and interactive Confused about hospital stay Urine and blood cultures negative did not sleep much overnight Review of Systems Review of Systems: Yes all other systems are reviewed and are negative Physical Exam 2 Vital Signs: Vital Signs: Last Vital Signs Temp 97.6 F 07/23/23 07:18 Pulse 74 07/23/23 08:24 Resp 16 07/23/23 08:24 BP 136/79 07/23/23 07:18 Pulse Ox 94 07/23/23 07:18 O2 Del Method Nasal Cannula 07/23/23 07:18 O2 Flow Rate 2 07/23/23 07:18 Oxygen Flow Rate 2 07/21/23 17:33 BMI result Body Mass Index 22.7 Const: Other: Constitutional : Awake, interactive, not in distress Neck : Normal inspection, Supple Cardiovascular : RRR, no JVP, no lower extremity edema Respiratory : good bilateral air entry, no crackles, wheezes or rhonchi Gastrointestinal: soft, lax, Normal bowel sounds, Non tender Skin : Warm, Dry Neurological : Alert & oriented to self only but otherwise confused, No focal deficit Objective Data Active Medications Acetaminophen (Acetaminophen 325 Mg Tablet) 650 mg PO Q6H PRN PRN Reason: Pain, Mild (Pain Scale 1-3) Last Admin: 07/23/23 03:46 Dose: 650 mg Documented By: CASTILRacheal Albuterol/Ipratropium (Albuterol/Iprat 2.5/0.5mg 3 Ml Ampul.Neb) 3 ml INHALE RQ4H WHILE AWAKE PRN PRN Reason: Shortness of Breath/Wheezing Carvedilol (Carvedilol 3.125 Mg Tablet) 3.125 mg PO BIDWM [facility]; Protocol Last Admin: 07/23/23 08:46 Dose: 3.125 mg Documented By: KENNETH Celecoxib (Celecoxib 200 Mg Capsule) 200 mg PO BID [facility] Last Admin: 07/23/23 08:46 Dose: 200 mg Documented By: KENNETH Docusate Sodium (Docusate Sodium 100 Mg Capsule) 100 mg PO SUWE@0900 [facility] Fluticasone/Umeclidinium/Vilanterol (Fluticasone/Umeclidinium/Vilanterol 100/62.5/25 Blst.W.Dev) 1 puff INHALE DAILY [facility] Last Admin: 07/23/23 08:22 Dose: 1 puff Documented By: JILLIAN Heparin Sodium (Porcine) (Heparin Sodium,Porcine 5,000 Unit/Ml Vial) 5,000 unit SUBCUT Q12H [facility] Last Admin: 07/23/23 08:46 Dose: 5,000 unit Documented By: KENNETH Cefepime HCl 1 gm/ Sodium (Chloride) 50 mls @ 100 mls/hr IV Q12H [facility] Last Infusion: 07/23/23 09:37 Dose: Infused Documented By: KENNETH Leflunomide (Leflunomide 10 Mg Tablet) 10 mg PO DAILY [facility] Last Admin: 07/23/23 08:46 Dose: 10 mg Documented By: KENNETH Multivitamins/Vitamin C (Multivitamin Tablet) 1 tab PO DAILY [facility] Last Admin: 07/23/23 08:46 Dose: 1 tab Documented By: KENNETH Ondansetron HCl (Ondansetron Hcl 4 Mg/2 Ml Vial) 4 mg IVPUSH Q8H PRN PRN Reason: Nausea and Vomiting Last Admin: 07/22/23 18:06 Dose: 4 mg Documented By: FALLON Sodium Chloride (0.9 % Sodium Chloride Flush 3 Ml Syringe) 3 ml IVFLUSH QSHIFT [facility] Last Admin: 07/23/23 08:45 Dose: 3 ml Documented By: KENNETH Labs 07/23/23 05:48 07/23/23 05:48 Labs: Laboratory Results - last 24 hr 07/23/23 05:48 MCV 95.7 MCH 30.8 MCHC 32.2 RDW 14.3 Plt Count 210 MPV 11.4 Immature Gran % (Auto) 0.1 Neut % (Auto) 41.6 L Lymph % (Auto) 25.4 [place] % (Auto) 18.0 H Eos % (Auto) 14.3 H Baso % (Auto) 0.6 Lymph # (Auto) 2.0 [place] # (Auto) 1.4 H Eos # (Auto) 1.1 H Baso # (Auto) 0.1 Abs Immat Gran (auto) 0.01 Absolute Neuts (auto) 3.2 Absolute Nucleated RBC 0.000 Nucleated RBC % (auto) 0.0 Anion Gap 11 L Estim Creat Clear Calc 32.9 Estimated GFR 60 Random Glucose 79 Calcium 8.8 D Total Bilirubin 0.3 AST 24 ALT 13 Alkaline Phosphatase 80 Total Protein 6.4 L Albumin 3.6 Microbiology Microbiology Results: Microbiology 07/22/23 Unknown Urine Culture - Final Urine clean catch - Clean Catch Midstream No growth. 07/22/23 03:37 Blood Culture - Preliminary Blood - Arterial No growth after 24 hours. 07/22/23 03:16 Blood Culture - Preliminary Blood - Arterial No growth after 24 hours. Assessment and Plan (1) Fall: Status: Acute (2) Physical deconditioning: Status: Acute (3) Toxic metabolic encephalopathy: Status: Acute Plan Heidy Munoz is an 88 years old woman admitted with # Acute encephalopathy secondary to recent UTI and medication in elderly with mild congnitive decline Likely related to Bactrim usage Urine and blood cultures negative DC IV antibiotic therapy recurrent reorientation # Acute delerium Likely 2/2 inpatient hospital stay Had Haldol and Zyprexa overnight Start Seroquel bedtime recurrent reorientation # S/p fall. Fall precautions. PT rec STR # Chronic obstructive pulmonary disease, Continue supplemental oxygen to keep oxygen saturation above 90%. Bronchodilator therapy as needed. Continue Trelegy (or alternative). # Chronic systolic congestive heart failure, not decompensated. Continue Coreg (pt takes diuretics at home? -will await for home confirmation by pharmacy). # Rheumatoid arthritis. Continue Celebrex. DVT prophylaxis: Heparin subcu Code Status: Presumed full code. Patient when the hospitalization overnight for Delerium in the setting of acute encephalopathy and physical deconditioning requiring placement at SNF facility Quality Stroke Does the patient have a stroke diagnosis?: No VTE Prior VTE?: No VTE Risk Level:: Medical - moderate - high VTE Device Contraindication: N/A - Device Ordered VTE Drug Contraindication: N/A - Med Ordered
[2023-07-23 15:47] VITALS: BP 104/66; PULSE 94; RESP 20; TEMP 36.8; O2SAT 91
[2023-07-23 18:52] VITALS: BP 129/76; PULSE 97; RESP 15; TEMP 36.3; O2SAT 94
[2023-07-23] MEDS: QUEtiapine Fumarate 25 MG TABLET PO (19:49)
[2023-07-24 04:00] VITALS: BP 103/68; PULSE 77; RESP 18; TEMP 36.6; O2SAT 93
[2023-07-24 07:42] VITALS: BP 110/56; PULSE 60; RESP 16; TEMP 36.7; O2SAT 96
[2023-07-24] MEDS: Heparin Sodium,Porcine 5,000 UNIT/ML VIAL 5000 UNIT SUBCUT ×2 (07:52→21:50)
[2023-07-24] MEDS: 0.9 % Sodium Chloride Flush 3 ML SYRINGE IVFLUSH ×3 (07:52→23:41)
[2023-07-24] MEDS: Celecoxib 200 MG CAPSULE PO ×2 (07:53→21:50)
[2023-07-24] MEDS: Multivitamin TABLET 1 TAB PO (07:53)
[2023-07-24] MEDS: Leflunomide 10 MG TABLET PO (07:53)
[2023-07-24] MEDS: Docusate Sodium 100 MG CAPSULE PO (07:53)
[2023-07-24] MEDS: carvediloL 3.125 MG TABLET PO ×2 (07:54→16:32)
--- NOTE | 2023-07-24 10:48 | HO.PM.IMPN ---
Subjective Subjective Date of Service: 07/24/23 Interval History: Seen and evaluated this morning Alert and interactive had a better night sleep Review of Systems Review of Systems: Yes all other systems are reviewed and are negative Physical Exam Vital Signs: Vital Signs: Last Vital Signs Temp 98.1 F 07/24/23 07:42 Pulse 60 07/24/23 07:42 Resp 16 07/24/23 07:42 BP 110/56 L 07/24/23 07:42 Pulse Ox 96 07/24/23 07:42 O2 Del Method Nasal Cannula 07/24/23 07:42 O2 Flow Rate 2 07/24/23 07:42 Oxygen Flow Rate 2 07/21/23 17:33 BMI result Body Mass Index 22.7 Const: Other: Constitutional : Awake, interactive, not in distress Neck : Normal inspection, Supple Cardiovascular : RRR, no JVP, no lower extremity edema Respiratory : good bilateral air entry, no crackles, wheezes or rhonchi Gastrointestinal: soft, lax, Normal bowel sounds, Non tender Skin : Warm, Dry Neurological : Alert & oriented to self only but otherwise confused, No focal deficit Objective Data Active Medications Acetaminophen (Acetaminophen 325 Mg Tablet) 650 mg PO Q6H PRN PRN Reason: Pain, Mild (Pain Scale 1-3) Last Admin: 07/23/23 03:46 Dose: 650 mg Documented By: CASTILRacheal Albuterol/Ipratropium (Albuterol/Iprat 2.5/0.5mg 3 Ml Ampul.Neb) 3 ml INHALE RQ4H WHILE AWAKE PRN PRN Reason: Shortness of Breath/Wheezing Carvedilol (Carvedilol 3.125 Mg Tablet) 3.125 mg PO BIDWM [facility]; Protocol Last Admin: 07/24/23 07:54 Dose: 3.125 mg Documented By: KENNETH Celecoxib (Celecoxib 200 Mg Capsule) 200 mg PO BID [facility] Last Admin: 07/24/23 07:53 Dose: 200 mg Documented By: KENNETH Docusate Sodium (Docusate Sodium 100 Mg Capsule) 100 mg PO SUWE@0900 [facility] Last Admin: 07/24/23 07:53 Dose: 100 mg Documented By: KENNETH Fluticasone/Umeclidinium/Vilanterol (Fluticasone/Umeclidinium/Vilanterol 100/62.5/25 Blst.W.Dev) 1 puff INHALE DAILY [facility] Last Admin: 07/24/23 08:18 Dose: Not Given Documented By: JILLIAN Non-Admin Reason: See Note Heparin Sodium (Porcine) (Heparin Sodium,Porcine 5,000 Unit/Ml Vial) 5,000 unit SUBCUT Q12H [facility] Last Admin: 07/24/23 07:52 Dose: 5,000 unit Documented By: KENNETH Leflunomide (Leflunomide 10 Mg Tablet) 10 mg PO DAILY [facility] Last Admin: 07/24/23 07:53 Dose: 10 mg Documented By: KENNETH Multivitamins/Vitamin C (Multivitamin Tablet) 1 tab PO DAILY [facility] Last Admin: 07/24/23 07:53 Dose: 1 tab Documented By: KENNETH Ondansetron HCl (Ondansetron Hcl 4 Mg/2 Ml Vial) 4 mg IVPUSH Q8H PRN PRN Reason: Nausea and Vomiting Last Admin: 07/22/23 18:06 Dose: 4 mg Documented By: FALLON Quetiapine Fumarate (Quetiapine Fumarate 25 Mg Tablet) 25 mg PO BEDTIME [facility] Last Admin: 07/23/23 19:49 Dose: 25 mg Documented By: CASTILRacheal Sodium Chloride (0.9 % Sodium Chloride Flush 3 Ml Syringe) 3 ml IVFLUSH QSHIFT [facility] Last Admin: 07/24/23 07:52 Dose: 3 ml Documented By: KENNETH Labs 07/23/23 05:48 07/23/23 05:48 Microbiology Microbiology Results: Microbiology 07/22/23 03:37 Blood Culture - Preliminary Blood - Arterial No growth after 48 hours. 07/22/23 03:16 Blood Culture - Preliminary Blood - Arterial No growth after 48 hours. 07/22/23 Unknown Urine Culture - Final Urine clean catch - Clean Catch Midstream No growth. Assessment and Plan (1) Toxic metabolic encephalopathy: Status: Acute (2) Physical deconditioning: Status: Acute Plan Heidy Munoz is an 88 years old woman admitted with # Acute encephalopathy secondary to recent UTI and medication in elderly with mild congnitive decline Likely related to Bactrim usage Urine and blood cultures negative DC IV antibiotic therapy recurrent reorientation # Acute delerium Likely 2/2 inpatient hospital stay Had Haldol and Zyprexa overnight Seroquel bedtime recurrent reorientation # S/p fall. Fall precautions. PT rec STR # Chronic obstructive pulmonary disease, Continue supplemental oxygen to keep oxygen saturation above 90%. Bronchodilator therapy as needed. Continue Trelegy (or alternative). # Chronic systolic congestive heart failure, not decompensated. Continue Coreg (pt takes diuretics at home? -will await for home confirmation by pharmacy). # Rheumatoid arthritis. Continue Celebrex. DVT prophylaxis: Heparin subcu Code Status: Presumed full code. Patient when the hospitalization overnight for Delerium in the setting of acute encephalopathy and physical deconditioning requiring placement at SNF facility Quality Stroke Does the patient have a stroke diagnosis?: No VTE Prior VTE?: No VTE Risk Level:: Medical - moderate - high VTE Device Contraindication: N/A - Device Ordered VTE Drug Contraindication: N/A - Med Ordered
--- NOTE | 2023-07-24 12:16 | MHC.CM.PN ---
CM SPOKE TO PTS DAUGHTER, CELE [phone] SHE CONFIRMS THE PREFERENCE IS FOR PT TO GO TO STR AT [facility] SHE SAYS WHILE PT IS THERE, THEY WILL BE WORKING ON MOVING HER TO ASSISTED LIVING SHE IS AWARE PT IS EXPECTED TO DC TOMORROW AND ASKS THAT IT BE ARRANGED FOR 1300 HOURS SO SHE CAN BE PRESENT
[2023-07-24 15:03] VITALS: BP 160/65; PULSE 90; RESP 18; TEMP 36.3; O2SAT 92
[2023-07-24 19:27] VITALS: BP 131/67; PULSE 79; RESP 16; TEMP 36.4; O2SAT 95
[2023-07-24] MEDS: QUEtiapine Fumarate 25 MG TABLET PO (21:49)
[2023-07-24] MEDS: Acetaminophen 325 MG TABLET 650 MG PO (21:49)
[2023-07-25 00:21] VITALS: BP 104/62; PULSE 107; RESP 18; TEMP 36.9; O2SAT 94
[2023-07-25 05:11] LABS: Hematocrit 38.5 % (37.0-47.0); Mean Corpuscular HGB Conc 31.2 g/dl (31.0-35.0); Mean Corpuscular Hemoglobin 30.2 pg (27.0-33.0); Mean Corpuscular Volume 96.7 fL (80.0-98.0); Mean Platelet Volume 11.7 fL (9.4-12.3); Platelet Count 195 X10*3/uL (160-400); Red Blood Count 3.98 X10*6/uL (4.20-5.50); Red Cell Distribution Width 14.2 % (11.0-16.0)
[2023-07-25 05:25] LABS: Anion Gap 11 (12-20); Blood Urea Nitrogen 18 mg/dL (9-16); Calcium 8.5 mg/dL (8.4-10.2); Carbon Dioxide 25 mmol/L (22-29); Chloride 111 mmol/L (96-108); Creatinine Clr Calc Pharmacy 38.6; Estimated Glomerular Filt Rate > 60; Glucose Random 76 mg/dL (60-115); Sodium 143 mmol/L (135-145)
[2023-07-25 07:16] VITALS: BP 123/61; PULSE 65; RESP 14; TEMP 36.3; O2SAT 98
[2023-07-25] MEDS: Fluticasone/Umeclidinium/Vilanterol 100/62.5/25 BLST.W.DEV 1 PUFF INHALE (07:49)
[2023-07-25 07:55] VITALS: PULSE 67; RESP 16; O2SAT 97
[2023-07-25] MEDS: Leflunomide 10 MG TABLET PO (08:29)
[2023-07-25] MEDS: Heparin Sodium,Porcine 5,000 UNIT/ML VIAL 5000 UNIT SUBCUT (08:30)
[2023-07-25] MEDS: Celecoxib 200 MG CAPSULE PO (08:30)
[2023-07-25] MEDS: carvediloL 3.125 MG TABLET PO (08:30)
[2023-07-25] MEDS: Multivitamin TABLET 1 TAB PO (08:30)
[2023-07-25] MEDS: 0.9 % Sodium Chloride Flush 3 ML SYRINGE IVFLUSH (08:30)
[2023-07-25 10:30] VITALS: BMI 22.7
--- NOTE | 2023-07-25 11:22 | MHC.CM.PN ---
DP: PT HAS BEEN MEDICALLY CLEARED FOR DC TO STR AT [facility]. RN/MD AWARE. HCP/DAUGHTER CELE IS AWARE AND IN AGREEMENT WITH PLAN. IMM ADDRESSED. BLS TRANSPORT BOOKED FOR 1:30 PM VIA [employer]. CENTER AWARE
--- NOTE | 2023-07-25 11:30 | PM.DS ---
DS: Providers Provider Date of Service: 07/25/23 Date of admission: 07/22/23 02:56 Primary care physician: Lubna Carmichael MD Consults: 07/22/23 13:03 Consult to Wound Care Routine Reason for consultation: Sacral skin tear DS: Diagnosis Discharge Diagnosis (1) Toxic metabolic encephalopathy: Status: Resolved (2) Physical deconditioning: Status: Resolved (3) Fall: Status: Resolved (4) Urinary tract infection: Status: Resolved DS: Summary Hospital Course Hospital Course: Admission note HPI Heidy Munoz is an 88 years old woman with past medical history significant for COPD on home O2, RA and chronic systolic congestive heart failure ulcers she sustained a fall. HPI was limited as the patient is quite confused. HPI was obtained from chart and ED provider.. She seems to be upset. I do not see history of dementia. Patient did not report head trauma. She does complain of generalized muscular pain. According to notes the patient was having nausea and vomiting. Also, patient was found by staff very unsteady on her feet. In the ED, she was found to have normal vital signs. She is on 2 L of supplemental oxygen via nasal cannula. Blood workup showed no leukocytosis. Creatinine is normal. There are no significant electrolyte imbalances. Urinalysis consistent with urinary tract infection. She underwent CT scans of the abdomen, pelvis, chest, head and C-spine. They are all unremarkable except for much of the lower right lobe of the thyroid gland(1.6). ED tx: Zofran IV and Ceftin 500 mg p.o. x1. Hospital course # Acute encephalopathy secondary to recent UTI and medication in elderly with mild congnitive decline Likely related to Bactrim usage as Urine and blood cultures negative. IV antibiotic discontinued and the patient continued to improve. # Acute delerium A result of encephalopathy on admission from Bactrim complicated by inpatient hospital stay as she required Haldol and Zyprexa to control her symptoms. improved with recurrent reorientation and usage of Seroquel at bedtime. # S/p fall. Fall precautions. PT recommended short term rehab. # Thyroid nodule Multinodular right lobe of the thyroid gland with one nodule measuring 1.6 cm. Consider further assessment with nonemergent thyroid ultrasound as outpatient. Plan Seroquel at bedtime to help ease anxiety and delerium recurrent orientation increase physical activity Outpatient follow up with PCP to discuss Thyroid nodule evaluation Time Attestation Discharge coordination time: Greater than 30 minutes Quality: Safe Use of Opioids Does Pt have an Active Cancer Diagnosis on the Problem List?: No Quality: Stroke Does the patient have a stroke diagnosis?: No Physical Exam Vital Signs: Vital Signs: Last Vital Signs Temp 97.4 F 07/25/23 07:16 Pulse 67 07/25/23 07:55 Resp 16 07/25/23 07:55 BP 123/61 07/25/23 07:16 Pulse Ox 98 07/25/23 07:16 O2 Del Method Nasal Cannula 07/25/23 07:16 O2 Flow Rate 2 07/25/23 07:16 Oxygen Flow Rate 2 07/21/23 17:33 BMI result Body Mass Index 22.7 Const: Other: Constitutional : Awake, interactive, not in distress Neck : Normal inspection, Supple Cardiovascular : RRR, no JVP, no lower extremity edema Respiratory : good bilateral air entry, no crackles, wheezes or rhonchi Gastrointestinal: soft, lax, Normal bowel sounds, Non tender Skin : Warm, Dry Neurological : Alert & oriented to self only but otherwise confused, No focal deficit DS: Data Data Completed and Pending Labs on day of discharge: Laboratory Results - last 24 hr 07/25/23 03:33 WBC 8.0 RBC 3.98 L Hgb 12.0 Hct 38.5 MCV 96.7 MCH 30.2 MCHC 31.2 RDW 14.2 Plt Count 195 MPV 11.7 Absolute Nucleated RBC 0.000 Nucleated RBC % (auto) 0.0 Sodium 143 Potassium 4.0 Chloride 111 H Carbon Dioxide 25 Anion Gap 11 L BUN 18 H Creatinine 0.76 Estim Creat Clear Calc 38.6 Estimated GFR > 60 Random Glucose 76 Calcium 8.5 Preliminary micro results at discharge 07/22/23 03:37 Blood Culture - Preliminary Blood - Arterial No growth after 48 hours. 07/22/23 03:16 Blood Culture - Preliminary Blood - Arterial No growth after 48 hours. Imaging Chest x-ray: Radiologist's impression: ITS Impressions Cervical Spine CT 07/21/23 17:43 IMPRESSION: 1. No acute intracranial abnormality. Please note that streak artifact significantly limits assessment of the posterior fossa. 2. No cervical spine fracture or traumatic malalignment. 3. Multinodular right lobe of the thyroid gland with one nodule measuring 1.6 cm. Consider further assessment with nonemergent thyroid ultrasound if clinically appropriate. Head CT 07/21/23 17:43 IMPRESSION: 1. No acute intracranial abnormality. Please note that streak artifact significantly limits assessment of the posterior fossa. 2. No cervical spine fracture or traumatic malalignment. 3. Multinodular right lobe of the thyroid gland with one nodule measuring 1.6 cm. Consider further assessment with nonemergent thyroid ultrasound if clinically appropriate. Hip/Pelvis X-Ray 07/21/23 18:27 IMPRESSION: 1. Severe degenerative changes right hip joint. No visible acute fracture or dislocation seen. 2. There is heterogeneous appearance of the right femoral head question osteopenia versus osteonecrosis. 3. There is no acute fracture or dislocation involving the pelvis. Chest X-Ray 07/21/23 21:20 IMPRESSION: 1. No acute cardiopulmonary process seen. Multiple small calcified densities overlying both mid chest new since the last exam 05/10/2023, ? Artifact overlying the chest wall. Correlate with clinical exam. Abdomen/Pelvis CT 07/21/23 23:31 IMPRESSION: 1. No acute intra-abdominal or intrapelvic abnormalities are identified. 2. Moderate-sized hiatal hernia. 3. Bilateral inguinal hernias containing loops of small bowel without evidence of obstruction or strangulation. 4. Moderate colonic diverticulosis without evidence of acute diverticulitis. 5. A 1.5 cm lipid rich right adrenal adenoma. No recommended imaging follow-up. Fleischner guidelines were followed. Discharge Plan Discharge Anticipated Discharge Date/Time: 07/25/23 11:22 Patient Disposition: Xfer SNF Discharge Diagnosis: Encephalopathy from Urine infection Referrals: Rachel Quevedo [Outside] - 1 Week (TRANSFER FOR SHORT TERM REHAB) Lubna Carmichael MD [Primary Care Provider] - 1 Week Discharge Medications: New quetiapine 25 mg Tablet 25 mg PO BEDTIME Qty: 14 0RF Continued cetirizine 10 mg tablet 10 mg PO DAILY Qty: 90 3RF leflunomide 10 mg tablet 10 mg PO DAILY Qty: 90 1RF celecoxib 200 mg capsule 200 mg PO BID Qty: 180 1RF carvedilol [Coreg] 3.125 mg tablet 3.125 mg PO BIDWM Rx Instructions: must administer with a meal/food multivitamin Tablet 1 tab PO DAILY docusate sodium 100 mg Capsule 100 mg PO SUWE@0900 Calcium 600 + D(3) 600 mg-5 mcg (200 unit) Capsule 1 cap PO BEDTIME Trelety Ellipta 100-62.5-25 mcg blister with device 1 ea inhalation DAILY Qty: 60 6RF Discontinued sulfamethoxazole-trimethoprim [Bactrim DS] 800-160 mg tablet 1 tab PO BID 7 Days Qty: 14 0RF Rx Instructions: END DATE: 07/24/23 Discharge Orders: Discharge Order (Routine); Ordered 07/25/23 Ordered By: Mary Kay Contreras Diet: Advance to usual diet Activity on Discharge: As tolerated Stand Alone Forms: Patient Portal Discharge page Care Plan Goals: Read below Health Concerns: Read below Plan of Treatment: Read below Assessment: You were admitted for evaluation of altered mentation. testing did not show any acute infection. it was believed to be a result of recent urine infection and the antibiotic usage. Improved with recurrent orientation. Seroquel at bedtime to help ease anxiety and delerium recurrent orientation increase physical activity Patient Instructions: Fall Prevention for Older Adults (ED), Urinary Tract Infection in Older Adults (ED) Discharge Date/Time: 07/25/23 13:38
== END 2023-07-25 13:38 | disposition skilled nursing facility (03) | DRG 689 ==
LOC: HO.ED 07-22 01:49 → HO.EDOVER 07-22 03:02 → HO.S3 07-22 15:09
PROVIDERS: Emergency Medicine; Admitting Provider Internal Medicine; Emergency Provider Student in an Organized Health Care Education/Training Program; PCP Internal Medicine; Visit Provider Student in an Organized Health Care Education/Training Program
DX: N39.0 Urinary tract infection, site not specified (principal); G92.8 Other toxic encephalopathy; I50.22 Chronic systolic (congestive) heart failure; F05 Delirium due to known physiological condition; J44.9 Chronic obstructive pulmonary disease, unspecified; M06.9 Rheumatoid arthritis, unspecified; E04.1 Nontoxic single thyroid nodule; W19.XXXA Unspecified fall, initial encounter; Z20.822 Contact with and (suspected) exposure to COVID-19; Z87.891 Personal history of nicotine dependence; Z99.81 Dependence on supplemental oxygen; Z79.51 Long term (current) use of inhaled steroids; Z79.899 Other long term (current) drug therapy
CPT/HCPCS: 36415; 70450; 71045; 72125; 73502; 74177; 80048; 80053; 81001; 83605; 83880; 84443; 84484; 85025; 85027; 87040; 87086; 87502; 87635; 93005; 94640; 97162; 99285; J0692; J1630; J1644; J2359; J2405; Q9967

== ENCOUNTER → 2023-07-21 17:58 | Outpatient (BNV) | payer MEDICARE, OTHER, SELFPAY | PROVIDERS: Admitting Provider Internal Medicine; Emergency Provider Student in an Organized Health Care Education/Training Program; Visit Provider Internal Medicine Cardiovascular Disease | DX: R94.31 Abnormal electrocardiogram [ECG] [EKG] (principal) | CPT/HCPCS: 93010 ==

== ENCOUNTER → 2023-07-22 02:56 | Outpatient (BNV) | payer MEDICARE, OTHER, SELFPAY | PROVIDERS: Admitting Provider Internal Medicine; Emergency Provider Student in an Organized Health Care Education/Training Program; Visit Provider Internal Medicine | DX: G92.8 Other toxic encephalopathy (principal); N30.00 Acute cystitis without hematuria; I50.22 Chronic systolic (congestive) heart failure; J44.9 Chronic obstructive pulmonary disease, unspecified; R53.81 Other malaise; G31.84 Mild cognitive impairment of uncertain or unknown etiology; W19.XXXA Unspecified fall, initial encounter | CPT/HCPCS: 99223; 99232; 99239; 99499 ==

== ENCOUNTER 2023-10-31 13:38 | Outpatient (AMB) | payer MEDICARE, OTHER, SELFPAY ==
[2023-10-31 13:50] VITALS: BP 122/68; PULSE 68; O2SAT 92; BMI 19.5
--- NOTE | 2023-10-31 13:50 | A.OFFVIS_ITS ---
Vital Signs 10/31/23 13:50 Height 5 ft 1 in Weight 103 lb 6.349 oz BMI 19.5 BP 122/68 Blood Pressure Location Lt brachial Position Sitting Pulse 68 Pulse Source Pulse Oximeter Pulse Oximetry (%) 92 Oxygen Delivery Method Room Air Intake Visit Reasons: RA Intake Note: Pt last seen by Dr Galeano 06/16/23 presents today for follow up. Pt is with her son who states she is living at the [facility] in [place]. Reports being seen at [facility] several times since last visit. Family is concerned with meds- Leflunomide causing diarrhea? Resident Director Required: No Accompanied by: Son Jamil Allergies Seasonal Allergies Allergy (Intermediate, Verified 10/31/23 13:54) congestion Medication List - Last Reconciled 10/31/23 by Della Winston MD albuterol sulfate 90 mcg/actuation 2 puffs inhalation Q6H PRN calcium carbonate-vitamin D3 600 mg-5 mcg (200 unit) (Calcium 600 + D(3)) 1 cap PO BEDTIME carvedilol (Coreg) 3.125 mg PO BIDWM celecoxib 200 mg PO BID cetirizine 10 mg PO DAILY docusate sodium 100 mg PO SUWE@0900 fluticasone propionate 50 mcg/actuation (Flonase Allergy Relief) 1 spray intranasal DAILY [id number]-kplkbbva 100-62.5-25 mcg (Trelegy Ellipta) 1 ea inhalation DAILY leflunomide 10 mg PO DAILY mirtazapine 7.5 mg PO DAILY multivitamin 1 tab PO DAILY quetiapine 25 mg PO BEDTIME trazodone mg PO HPI Comments Details: 88-year-old female with seropositive erosive RA returns for follow-up. She is here with her son. This is her 1st visit with me. She used to follow-up with Dr. Galeano. She remains on leflunomide 10 mg daily. Her son patient was admitted a few times over the last few months for different complaints. Including diarrhea, UTI. States that last week she was admitted for impacted stool which was disimpacted. States that other doctor suspect leflunomide because of diarrhea. Continues to have hip pain. Continues to have weight loss. Incontinent of urine and stool. Most recent history by Dr. Galeano 06/2023.: The patient returns today for evaluation of her rheumatoid arthritis and osteoarthritis. Her son accompanies her. She also has some interstitial lung disease from the RA. Most problematic this year has been right hip pain. This shows on x-ray to be due to fairly severe osteoarthritis. She has pain with any weight-bearing activity but seems relatively comfortable at night. She is not the greatest surgical candidate so there was an attempt at a intra-articular corticosteroid injection back in April. She does not recall that it helped much. After that she developed a UTI with some confusion so there is reluctance to proceed with that treatment a gain in the future. She has remained on the leflunomide 10 mg daily and Celebrex 200 mg twice a day. She does not seem to have any problems with nausea, vomiting, constipation or diarrhea. She is in an assisted living center and has someone monitoring her medications for her. She does have oxygen that she uses at night for her ILD. She does not seem to use it are needed much during the day. She has a Pulmonary appointment in the next week or so. [facility] Medical History Right hip pain Rheumatoid arthritis FHx: cholecystectomy Family History Mother Acute arthritis Father No problems noted. 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[employer]) Alcohol intake: never Comment: 1:1 sitter Patient Tobacco Use Status: Former Tobacco user e-Cigarette/Vaping Use: Never Used service: No Current occupational status: retired Current occupation: Former PT Cognitive needs: No Hearing needs: No Vision needs: Yes Review of Systems GI Reports fecal incontinence, Reports diarrhea and Reports loose stools Reports urinary incontinence Musc Reports deformity, Reports arthralgias and Denies joint swelling Physical Exam Vital Signs: Last Vital Signs Pulse 68 10/31/23 13:50 BP 122/68 10/31/23 13:50 Pulse Ox 92 10/31/23 13:50 Oxygen Delivery Method Room Air 10/31/23 13:50 BMI result Body Mass Index 19.5 Const General: cooperative, healthy appearing, comfortable and no acute distress Orientation/consciousness: oriented to person Limitations: wheelchair HEENT Head: Yes normocephalic and Yes atraumatic Mouth: moist mucous membranes Resp Effort & Inspection: normal respiratory effort and able to speak in complete sentences Auscultation: rales bilateral at the base Cardio Rate: regular rate Skin General skin exam: no rashes or lesions noted Neuro General: oriented to person Extrem Other: Signs of chronic RA deformities. No active synovitis both hands and wrists. Normal range of motion of elbows and shoulders without pain Normal range of motion of knees without pain Soft nodular swelling on the extensor aspect of left 5th MCP, potentially a rheumatoid nodule. Assessment & Plan Assessment & Plan (1) Seropositive rheumatoid arthritis: Comment: +++ RF deforming Methotrexate in 1999 - stopped 03/22/08 due to infiltrates, Leflunomide since 05/18 Code(s): M05.9 - Rheumatoid arthritis with rheumatoid factor, unspecified Category: Medical Plan: 88-year-old female with seropositive deforming RA presents as a new patient for me. She used to follow-up with Dr. Galeano. She remains on leflunomide 10 mg daily. There is no active synovitis on exam. Per son patient has been and out of the hospital over the last few months. She has been having diarrhea as well as fecal and urinary incontinence. She also had developed a UTI and had fecal impaction. States that is concerned about leflunomide causing diarrhea and weight loss. At this point, we can hold leflunomide and reassess. Advised patient's son to call the office if patient starts to develop signs of active RA. 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: Comment: Bilateral lower lobe ILD, some COPD Code(s): M05.10 - Rheumatoid lung disease with rheumatoid arthritis of unspecified site Category: Medical Plan: Follow-up with Pulmonary (3) detention use of drug: Code(s): Z79.899 - Other dedicated intermodal truck driver (current) drug therapy Category: Medical Plan: Monitor safety labs for leflunomide (4) Osteoarthritis of right hip: Comment: Advanced osteoarthritis, cortisone injection without relief 06/02 Code(s): M16.11 - Unilateral primary osteoarthritis, right hip Category: Medical Qualifiers: Osteoarthritis type: primary Qualified Code(s): M16.11 - Unilateral primary osteoarthritis, right hip Plan I spent 35 minutes reviewing patient's chart, evaluating patient, ordering diagnostic workup, counseling patient and documenting in the chart Orders: Orders Comprehensive Met. Panel 3 Months M05.10 - Rheumatoid lung disease with rheumatoid arthritis of unspecified site, Z79.899 - Other residential (current) drug therapy C Reactive Protein 3 Months M05.10 - Rheumatoid lung disease with rheumatoid arthritis of unspecified site, Z79.899 - Other dedicated intermodal truck driver (current) drug therapy Complete Blood Count Auto Diff 3 Months M05.10 - Rheumatoid lung disease with rheumatoid arthritis of unspecified site, Z79.899 - Other residential (current) drug therapy Erythrocyte Sedimentation Rate 3 Months M05.10 - Rheumatoid lung disease with rheumatoid arthritis of unspecified site, Z79.899 - Other residential (current) drug therapy Medications: On Hold leflunomide Hold Comment: Doctor's Order 10 mg PO DAILY 90 tabs 1RF M05.10 - Rheumatoid lung disease with rheumatoid arthritis of unspecified site
== END 2023-10-31 14:18 | disposition home or self-care (01) ==
LOC: HO.RHE 13:38
PROVIDERS: PCP Internal Medicine; Visit Provider Student in an Organized Health Care Education/Training Program
DX: M05.79 Rheumatoid arthritis with rheumatoid factor of multiple sites without organ or systems involvement (principal); M05.10 Rheumatoid lung disease with rheumatoid arthritis of unspecified site; Z79.899 Other long term (current) drug therapy; M16.11 Unilateral primary osteoarthritis, right hip
CPT/HCPCS: 99214

== ENCOUNTER → 2023-10-31 13:38 | Outpatient (BNVA) | payer MEDICARE, OTHER, SELFPAY | PROVIDERS: PCP Internal Medicine; Visit Provider Student in an Organized Health Care Education/Training Program | DX: M05.9 Rheumatoid arthritis with rheumatoid factor, unspecified (principal); M05.10 Rheumatoid lung disease with rheumatoid arthritis of unspecified site; M16.11 Unilateral primary osteoarthritis, right hip; Z79.899 Other long term (current) drug therapy | CPT/HCPCS: 99212 ==